=== PATIENT | male | born 1950 | race Caucasian/White ===

== ENCOUNTER → 2016-10-24 | Outpatient (CLI) | payer OTHER, MEDICARE ==
[~2016-10-24] MED LIST: ALBUAER INH; ARTIOIN OP; ATOR10TA88 PO; BCTROWC TOP; BENZ1CAP90 PO; CALC625T13 PO; CANA1TAB3 PO; CARB25TA12 PO; CETI10TA84 PO; CLOP1TAB5 PO; CYAN10005 PO; CYM/30 PO; DIPH25TA32 PO; DLCSR120 PO; DONE10TA12 PO; DULO60CA44 PO; FINA5TAB PO; FLUN0.02; HYDR25TA4 PO; INSDGI; IPRASOL4 INH; ISOS30TA35 PO; LATA0.009 OPB; LOSA1TAB38 PO; LOSA50TA6 PO; LVMI SC; LYR50 PO; MAGN400T6 PO; METF1000 PO; METO50TA16 PO; NTRGSL/4 UT; NTRSLP4 SL; OMEG10007 PO; OMEP20TA PO; OXGN; OXYC-57 PO; POTA10CA28 PO; PRLSR20 PO; ROPI0.5T15 PO; ROPI1TAB PO; SODI0.5T2 PO; SYMIN160 INH; TAMS0.4C38 PO; TAMS0.4C59 PO; TRIA0.1O12 TOP; ZOLP10TA6 PO; ZOLP5TAB6 PO
[2016-10-24 13:26] LABS: BASO % 0.2 %; BASO ABS # 0.01 K/uL (0-0.2); COMPLETE YES; EOS % 1.8 %; HEMATOCRIT 35.6 % (42-52); IG% 0.3 %; LYMPH % 19.6 %; LYMPH ABS # 1.29 K/uL (1.2-3.4); MEAN CELL VOLUME 86.6 fL (80-100); MEAN CORPUSCULAR HEMOGLOBIN 28.2 pg (25-34); MEAN CORPUSCULAR HGB CONC 32.6 g/dl (32-36); MONO % 7.2 %; NEUT % 70.9 %; PLATELET COUNT 123 K/uL (130-400); RED BLOOD COUNT 4.11 M/uL (4.7-6.1); WHITE BLOOD COUNT 6.57 K/uL (4.8-10.8)
[2016-10-24 13:29] LABS: URINE APPEARANCE CLEAR (CLEAR); URINE BILIRUBIN NEG (NEG); URINE COLOR YELLOW; URINE NITRITE NEG (NEG); URINE SPECIFIC GRAVITY 1.026 (1.000-1.030); UROBILINOGEN NEG (NEG)
[2016-10-24 13:33] LABS: MANUAL MICROSCOPIC REQUIRED? NO; REVIEW REQ? NO
[2016-10-24 13:43] LABS: TOTAL IRON BINDING CAPACITY 315 mcg/dl (250-450)
--- NOTE | 2016-11-02 09:10 | CODING QUERY MEDICAL NECESSITY ---
SUPPORTING DIAGNOSIS NEEDED A supporting diagnosis is required for the test/procedure performed on this patient in order for us to be reimbursed by the patient's insurance. Please provide a supporting diagnosis for the following test/procedure listed below next to the test name along with your signature. *If there is no additional diagnosis for this patient that would support the following test/procedure please document that below next to the test/procedure. Test(s)/Procedure(s) that require a supporting diagnosis: * VIT B-12 LEVEL DIAGNOSIS: * FOLATE LEVEL DIAGNOSIS: * DOS: 10/24/16 Provider Signature: Date: Thank you Babs Gill Health Information Management Once completed, please kindly fax back to [phone] For questions please call [phone]
== END | disposition home or self-care (01) ==
LOC: C.LABMFLN 07:42
PROVIDERS: ATTEND Family Medicine
DX: D64.9 Anemia, unspecified (principal); R31.9 Hematuria, unspecified

== ENCOUNTER → 2016-12-07 | Day surgery (SDC) | payer OTHER, MEDICARE ==
[2016-12-06 15:02] VITALS: Ht 180.3 cm; Wt 129.6 kg
[~2016-12-07] VITALS: Ht 180.3 cm; Wt 129.6 kg
[~2016-12-07] MED LIST changes: -ARTIOIN OP; -BCTROWC TOP; -CETI10TA84 PO; -CYM/30 PO; -INSDGI; -ISOS30TA35 PO; +LIDOCAINE HCL 2% 2 ML VIAL (20MG/ML) ONE; -LOSA50TA6 PO; -NTRSLP4 SL; -PRLSR20 PO; +PROPOFOL IV EMULSION 10 MG/ML 20 ML VIAL IV ONE; -ROPI0.5T15 PO; -SODI0.5T2 PO; +SODIUM CHLORIDE 0.9% 500ML 500 ML IV ONE; -SYMIN160 INH; -TAMS0.4C38 PO; -TRIA0.1O12 TOP; -ZOLP5TAB6 PO
[2016-12-07 12:23] VITALS: TEMP 36.5
--- NOTE | 2016-12-07 12:53 | Endo History and Physical ---
History & Physical Date of Service: Dec 07, 2016. Chief Complaint: GERD,Dysphagia Referring Physician: Dr. Abner Dunn History of Present Illness 66 yo CM who presents for EGD secondary to GERD and dysphagia. Past Medical History Diabetes, Neurological Disorder, Arthritis, Glaucoma, Blood Dyscrasias, High Cholesterol, Sleep Apnea, Heart Disease, Hypertension, COPD, Kidney Disease, CVA /TIA, Other Past Surgical History Hx Cardiac Surgery: Yes (HEART CATHS, STENT X1) Hx Internal Defibrillator: No Hx Pacemaker: No Hx Abdominal Surgery: Yes (PANNICULECTOMY) Hx of Implantable Prosthesis: No Hx Post-Op Nausea and Vomiting: No Hx Cancer Surgery: Yes (BCC REMOVED) Hx Thoracic Surgery: No Hx Orthopedic: No Hx Urinary Tract Surgery: No Family History Colon CA Social History Smoking Status: Former Smoker Hx Substance Use: Yes (PERCOCET) Hx Alcohol Use: No Allergies Coded Allergies: Ciprofloxacin (Verified Allergy, Severe, Anaphylaxis, 12/06/16) Metoclopramide (Verified Allergy, Intermediate, FROM DRS CHART, 12/07/16) Felodipine (Verified Adverse Reaction, Mild, Cough, 12/06/16) Lisinopril (Verified Adverse Reaction, Mild, Cough, 12/06/16) Simvastatin (Verified Adverse Reaction, Mild, Leg Cramping, 12/06/16) Uncoded Allergies: LACTULOSE POWDER (Allergy, Unknown, FROM OFFICE CHART, 02/17/15) Current Medications Reported Home Medications Medications Dose Route/Sig Max Daily Dose Days Date Category Dose Instructions Fiber Tabs (Calcium Polycarbophil) 625 Mg Tab 2 Tabs PO QAM 12/06/16 Reported Vitamin B-12 (Cyanocobalamin) 1,000 Mcg Tab 1,000 Mcg PO QAM 12/06/16 Reported Ropinirole Er (Ropinirole Hydrochloride) 6 Mg Tab 1 Tab PO LUNCH 12/06/16 Reported Percocet 5MG/325MG (Oxycodone/Acetaminophen) Tab 1-2 Tablet PO Q4H PRN 12/06/16 Reported PAIN Omeprazole 20 Mg Tab 40 Mg PO BID 12/06/16 Reported Nitrostat (Nitroglycerin) 0.4 Mg Tab 0.4 Mg UT UD PRN 12/06/16 Reported Mag-Ox (Magnesium Oxide) 400 Mg Tab 400 Mg PO TID 12/06/16 Reported Lyrica (Pregabalin) 50 Mg Cap 50 Mg PO TID 12/06/16 Reported Levemir (Insulin Detemir) 100 Units/Ml Inj 54 Units SC QPM 12/06/16 Reported Levemir (Insulin Detemir) 100 Units/Ml Inj 52 Units SC QAM 12/06/16 Reported Duoneb (Ipratropium-Albuterol) 3 Ml Nebu 1 Treatment INH Q4H PRN 12/06/16 Reported Invokana (Canagliflozin) 300 Mg Tab 1 Tab PO QAM 12/06/16 Reported Hctz (Hydrochlorothiazide) 25 Mg Tab 25 Mg PO QAM 12/06/16 Reported Diphenhydramine Hcl 25 Mg Tab 1 Tab PO QID PRN 12/06/16 Reported Cymbalta (Duloxetine Hcl) 60 Mg Cap 60 Mg PO BID 12/06/16 Reported Diltiazem HCl ER (Diltiazem HCl) 120 Mg Caper 1 Tab PO QAM 12/06/16 Reported Tessalon Perles (Benzonatate) 200 Mg Cap 200 Mg PO TID PRN 12/06/16 Reported Zolpidem Tartrate 10 Mg Tab 1 Tab PO HS PRN 12/06/16 Reported Cozaar (Losartan Potassium) 100 Mg Tab 100 Mg PO QAM 12/06/16 Reported Proscar (Finasteride) 5 Mg Tab 1 Tab PO HS 08/30/16 Reported Sinemet 25MG/100MG (Carbidopa/Levodopa) Tab 1.5 Tabs PO QID 08/30/16 Reported [place]-3 (Fish Oil) 1 Ea Cap 1 Cap PO LUNCH 08/30/16 Reported Proventil Hfa (Albuterol Sulfate) 108 Mcg/Act Aer 2 Puffs INH Q4H PRN 08/30/16 Reported Glucophage (Metformin Hcl) 1,000 Mg Tab 1,000 Mg PO BID 02/17/15 Reported Micro-K Ext Rel (Potassium Chloride) 10 Meq Capcr 10 Meq PO BID 08/13/14 Reported Plavix (Clopidogrel Bisulfate) 75 Mg Tab 75 Mg PO QAM 05/18/14 Reported Flunisolide (Flunisolide (Nasal)) 0.025 % Spr 2 Sprays NA QAM 12/24/13 Reported Lipitor (Atorvastatin Calcium) 10 Mg Tab 80 Mg PO HS 12/24/13 Reported Flomax (Tamsulosin Hcl) 0.4 Mg Cap 2 Tablets PO HS 12/24/13 Reported Oxygen Gas 3 Liters NA CONTINOUS 12/24/13 Reported Xalatan 0.005% Oph (Latanoprost) Soln 1 Drop OPB HS 12/24/13 Reported Lopressor (Metoprolol Tartrate) 50 Mg Tab 0.5 Tab PO BID 12/24/13 Reported Aricept (Donepezil Hydrochloride) 10 Mg Tab 10 Mg PO HS 12/24/13 Reported Vital Signs Weight (Kilograms): 129.55 Height (Feet): 5 Height (Inches): 11 Date Time Temp Pulse Resp B/P Pulse Ox O2 Delivery O2 Flow Rate FiO2 12/07/16 12:23 36.5 94 18 129/81 100 Nasal Cannula 3 Physical Exam General Appearance: WD/WN, no apparent distress Respiratory/Chest: Auscultation: breath sounds normal Cardiovascular: Heart Auscultation: RRR Abdomen: Bowel Sounds: normal Inspection & Palpation: soft, non-distended, no tenderness, guarding & rebound Assessment and Plan Assessment: 66 yo CM who presents for EGD secondary to GERD and dysphagia. Plan: Proceed with EGD.
--- NOTE | 2016-12-07 13:10 | GI REPORT ---
Procedure Date: 12/07/2016 12:24 PM Procedure: Upper GI endoscopy Indications: Dysphagia, Gastro-esophageal reflux disease Medicines: Monitored Anesthesia Care Complications: No immediate complications. Estimated Blood Loss: Estimated blood loss: none. Procedure: Pre-Anesthesia Assessment: - Prior to the procedure, a History and Physical was performed, and patient medications and allergies were reviewed. The patient's tolerance of previous anesthesia was also reviewed. The risks and benefits of the procedure and the sedation options and risks were discussed with the patient. All questions were answered, and informed consent was obtained. Prior Anticoagulants: The patient has taken Plavix (clopidogrel), last dose was 2 days prior to procedure. ASA Grade Assessment: IV - A patient with severe systemic disease that is a constant threat to life. After reviewing the risks and benefits, the patient was deemed in satisfactory condition to undergo the procedure. After obtaining informed consent, the endoscope was passed under direct vision. Throughout the procedure, the patient's blood pressure, pulse, and oxygen saturations were monitored continuously. The scope was introduced through the mouth, and advanced to the second part of duodenum. The upper GI endoscopy was accomplished without difficulty. The patient tolerated the procedure well. Findings: No endoscopic abnormality was evident in the esophagus to explain the patient's complaint of dysphagia. It was decided, however, to proceed with dilation at the gastroesophageal junction. A TTS dilator was passed through the scope. Dilation with an 18-19-20 mm balloon (to a maximum balloon size of 20 mm) dilator was performed. The dilation site was examined and showed no change. A small hiatus hernia was present. Localized moderate inflammation characterized by erythema was found in the gastric antrum. Biopsies were taken with a cold forceps for histology. The examined duodenum was normal. Impression: - No endoscopic esophageal abnormality to explain patient's dysphagia. Esophagus dilated. Dilated. - Small hiatus hernia. - Gastritis. Biopsied. - Normal examined duodenum. Recommendation: - Resume previous diet. - Continue present medications. - Await pathology results. - Return to GI office as previously scheduled. Elias Starks DO 12/07/2016 1:10:07 PM This report has been signed electronically. Note Initiated On: 12/07/2016 12:24 PM I attest to the content of the Intraoperative Record and orders documented therein, exceptions below
--- NOTE | 2016-12-07 13:18 | Discharge Instructions ---
Endoscopy Patient Instructions Date / Procedure(s) Performed Dec 07, 2016. EGD Allergy Information Coded Allergies: Ciprofloxacin (Verified Allergy, Severe, Anaphylaxis, 12/06/16) Metoclopramide (Verified Allergy, Intermediate, FROM DRS CHART, 12/07/16) Felodipine (Verified Adverse Reaction, Mild, Cough, 12/06/16) Lisinopril (Verified Adverse Reaction, Mild, Cough, 12/06/16) Simvastatin (Verified Adverse Reaction, Mild, Leg Cramping, 12/06/16) Uncoded Allergies: LACTULOSE POWDER (Allergy, Unknown, FROM OFFICE CHART, 02/17/15) Discharge Date / Findings Dec 07, 2016. Gastritis s/p biopsies Esophageal dilation Hiatal hernia Medication Instructions Stopped Medication(s): stopped Invokana,Metformin,Plavix on Sunday OK to resume all medications today as prescribed Reported Home Medications Medications Dose Route/Sig Max Daily Dose Days Date Category Dose Instructions Fiber Tabs (Calcium Polycarbophil) 625 Mg Tab 2 Tabs PO QAM 12/06/16 Reported Vitamin B-12 (Cyanocobalamin) 1,000 Mcg Tab 1,000 Mcg PO QAM 12/06/16 Reported Ropinirole Er (Ropinirole Hydrochloride) 6 Mg Tab 1 Tab PO LUNCH 12/06/16 Reported Percocet 5MG/325MG (Oxycodone/Acetaminophen) Tab 1-2 Tablet PO Q4H PRN 12/06/16 Reported PAIN Omeprazole 20 Mg Tab 40 Mg PO BID 12/06/16 Reported Nitrostat (Nitroglycerin) 0.4 Mg Tab 0.4 Mg UT UD PRN 12/06/16 Reported Mag-Ox (Magnesium Oxide) 400 Mg Tab 400 Mg PO TID 12/06/16 Reported Lyrica (Pregabalin) 50 Mg Cap 50 Mg PO TID 12/06/16 Reported Levemir (Insulin Detemir) 100 Units/Ml Inj 54 Units SC QPM 12/06/16 Reported Levemir (Insulin Detemir) 100 Units/Ml Inj 52 Units SC QAM 12/06/16 Reported Duoneb (Ipratropium-Albuterol) 3 Ml Nebu 1 Treatment INH Q4H PRN 12/06/16 Reported Invokana (Canagliflozin) 300 Mg Tab 1 Tab PO QAM 12/06/16 Reported Hctz (Hydrochlorothiazide) 25 Mg Tab 25 Mg PO QAM 12/06/16 Reported Diphenhydramine Hcl 25 Mg Tab 1 Tab PO QID PRN 12/06/16 Reported Cymbalta (Duloxetine Hcl) 60 Mg Cap 60 Mg PO BID 12/06/16 Reported Diltiazem HCl ER (Diltiazem HCl) 120 Mg Caper 1 Tab PO QAM 12/06/16 Reported Tessalon Perles (Benzonatate) 200 Mg Cap 200 Mg PO TID PRN 12/06/16 Reported Zolpidem Tartrate 10 Mg Tab 1 Tab PO HS PRN 12/06/16 Reported Cozaar (Losartan Potassium) 100 Mg Tab 100 Mg PO QAM 12/06/16 Reported Proscar (Finasteride) 5 Mg Tab 1 Tab PO HS 08/30/16 Reported Sinemet 25MG/100MG (Carbidopa/Levodopa) Tab 1.5 Tabs PO QID 08/30/16 Reported [place]-3 (Fish Oil) 1 Ea Cap 1 Cap PO LUNCH 08/30/16 Reported Proventil Hfa (Albuterol Sulfate) 108 Mcg/Act Aer 2 Puffs INH Q4H PRN 08/30/16 Reported Glucophage (Metformin Hcl) 1,000 Mg Tab 1,000 Mg PO BID 02/17/15 Reported Micro-K Ext Rel (Potassium Chloride) 10 Meq Capcr 10 Meq PO BID 08/13/14 Reported Plavix (Clopidogrel Bisulfate) 75 Mg Tab 75 Mg PO QAM 05/18/14 Reported Flunisolide (Flunisolide (Nasal)) 0.025 % Spr 2 Sprays NA QAM 12/24/13 Reported Lipitor (Atorvastatin Calcium) 10 Mg Tab 80 Mg PO HS 12/24/13 Reported Flomax (Tamsulosin Hcl) 0.4 Mg Cap 2 Tablets PO HS 12/24/13 Reported Oxygen Gas 3 Liters NA CONTINOUS 12/24/13 Reported Xalatan 0.005% Oph (Latanoprost) Soln 1 Drop OPB HS 12/24/13 Reported Lopressor (Metoprolol Tartrate) 50 Mg Tab 0.5 Tab PO BID 12/24/13 Reported Aricept (Donepezil Hydrochloride) 10 Mg Tab 10 Mg PO HS 12/24/13 Reported Provider Instructions Activity Restrictions - No exercising or heavy lifting for 24 hours. - Do not drink alcohol the day of the procedure. - Do not drive a car or operate machinery until the day after the procedure. - Do not make any important decisions or sign important papers in 24 hours after the procedure. Following Day: - Return to full activity which may include returning to work/school. Diet Start your diet with liquids and light foods (jello, soup, juice, toast). Then eat your usual diet if not nauseated. Treatment For Common After Affects For mild abdominal pain, bloating, or excessive gas: - Rest - Eat lightly - Lie on right side Follow-Up Information Follow-up with Dr. Abner Dunn as scheduled Anesthesia Information What You Should Know You have had a procedure that required some medicine to reduce anxiety and discomfort. This treatment is called moderate sedation. After receiving the treatment, you may be sleepy, but you will be able to breathe on your own. The effects of the treatment may last for several hours. Follow these instructions along with Activity/Diet recommendations noted above: * Do NOT do anything where dizziness or clumsiness would be dangerous. * Rest quietly at home today, then you can be up and about tomorrow. * Have a responsible person stay with you the rest of today. * You may have had an I.V. today. If so, you may take the dressing off later today. Recommendations Call your doctor if: * Trouble breathing * Continuous vomiting for more than 24 hours * Temperature above 101 degrees * Severe abdominal pain or bloating * Pain not relieved by pain medicine ordered * There is increased drainage or redness from any incision * A large amount of rectal bleeding greater than 2-3 tablespoons. (If you had a polyp/s removed or have hemorrhoids, a small amount of blood - from the rectum is to be expected.) * You have any unanswered questions or concerns. IN THE EVENT OF A SERIOUS EMERGENCY, GO TO THE NEAREST EMERGENCY ROOM Your discharge instructions were prepared by provider Elias Starks. Patient Instructions Signature Page Richie Larose Patient (or Guardian) Signature/Date: I have read and understand the instructions given to me by my caregivers. Caregiver/RN/Doctor Signature/Date: The above-named patient and/or guardian has received patient instructions on this date. + Original Patient Signature Page (only) stays with chart. Please make copy for patient.
--- NOTE | 2016-12-07 13:40 | Anesthesiology Progress Note ---
Anesthesia Post Op Note Date & Time Dec 07, 2016 at 13:40 Vital Signs Pain Intensity: 2 Vital Signs Past 12 Hours Date Time Temp Pulse Resp B/P Pulse Ox O2 Delivery O2 Flow Rate FiO2 12/07/16 13:37 73 18 113/60 95 Nasal Cannula 3 12/07/16 13:31 81 18 109/55 96 Nasal Cannula 3 12/07/16 13:27 98 18 110/59 98 Nasal Cannula 3 12/07/16 12:23 36.5 94 18 129/81 100 Nasal Cannula 3 Notes Mental Status: alert / awake / arousable, participated in evaluation Pt Amnestic to Procedure: Yes Nausea / Vomiting: adequately controlled Pain: adequately controlled Airway Patency, RR, SpO2: stable & adequate BP & HR: stable & adequate Hydration State: stable & adequate Anesthetic Complications: no major complications apparent
[2016-12-07 13:42] VITALS: BP 140/80; PULSE 75; O2SAT 95
== END | disposition home or self-care (01) ==
LOC: C.GI 11:53
PROVIDERS: ATTEND Internal Medicine
DX: R13.10 Dysphagia, unspecified (principal); K21.9 Gastro-esophageal reflux disease without esophagitis; K44.9 Diaphragmatic hernia without obstruction or gangrene; E11.9 Type 2 diabetes mellitus without complications; M19.90 Unspecified osteoarthritis, unspecified site; H40.9 Unspecified glaucoma; D75.9 Disease of blood and blood-forming organs, unspecified; E78.5 Hyperlipidemia, unspecified; J44.9 Chronic obstructive pulmonary disease, unspecified; I51.9 Heart disease, unspecified; G47.30 Sleep apnea, unspecified; Z86.73 Personal history of transient ischemic attack (TIA), and cerebral infarction without residual deficits; Z88.1 Allergy status to other antibiotic agents; Z88.8 Allergy status to other drugs, medicaments and biological substances; Z79.02 Long term (current) use of antithrombotics/antiplatelets

== ENCOUNTER → 2016-12-25 | Outpatient (CLI) | payer OTHER, MEDICARE ==
[~2016-12-25] MED LIST changes: -LIDOCAINE HCL 2% 2 ML VIAL (20MG/ML) ONE; -PROPOFOL IV EMULSION 10 MG/ML 20 ML VIAL IV ONE; -SODIUM CHLORIDE 0.9% 500ML 500 ML IV ONE
[2016-12-25 13:48] LABS: HEMATOCRIT 36.3 % (42-52)
[2016-12-25 13:57] LABS: ALT/SGPT 17 U/L (12-78); AST/SGOT 32 U/L (15-37); BLOOD UREA NITROGEN 26 mg/dl (7-18); BUN/CREATININE RATIO 23.3 (10-20); CALCIUM 9.2 mg/dl (8.5-10.1); CARBON DIOXIDE 33 mmol/L (21-32); CHLORIDE 102 mmol/L (98-107); GLUCOSE 124 mg/dl (70-99); POTASSIUM 3.9 mmol/L (3.5-5.1); SODIUM 141 mmol/L (136-145)
[2016-12-25 14:01] LABS: ALB/GLOB RATIO 0.9 (0.9-2); ALKALINE PHOSPHATASE 80 U/L (45-117); CHOLESTEROL 99 mg/dl (0-200); CHOLESTEROL/HDL RATIO 2.7; ESTIMATED AVERAGE GLUCOSE 160 mg/dl; HA1C FLAG Normal (Normal); HDL CHOLESTEROL 37 mg/dl; LDL CHOLESTEROL CALCULATED 18 mg/dl; MAGNESIUM 2.2 mg/dl (1.8-2.4); TRIGLYCERIDES 218 mg/dl (0-150); VERY LOW DENSITY LIPOPROT CALC 44 mg/dl
== END | disposition home or self-care (01) ==
LOC: C.LABMFLN 08:16
PROVIDERS: ATTEND Family Medicine
DX: I10 Essential (primary) hypertension (principal); E78.5 Hyperlipidemia, unspecified; E83.42 Hypomagnesemia; E11.42 Type 2 diabetes mellitus with diabetic polyneuropathy

== ENCOUNTER → 2017-02-15 | Outpatient (CLI) | payer OTHER, MEDICARE ==
[~2017-02-15] MED LIST changes: +ATOR10TA82 PO; -ATOR10TA88 PO
[2017-02-15 18:13] LABS: BASO % 0.1 %; BASO ABS # 0.01 K/uL (0-0.2); COMPLETE YES; EOS % 3.2 %; HEMATOCRIT 37.2 % (42-52); IG% 0.2 %; LYMPH % 19.1 %; LYMPH ABS # 1.55 K/uL (1.2-3.4); MEAN CELL VOLUME 86.7 fL (80-100); MEAN CORPUSCULAR HEMOGLOBIN 27.5 pg (25-34); MEAN CORPUSCULAR HGB CONC 31.7 g/dl (32-36); NEUT % 70.4 %; PLATELET COUNT 148 K/uL (130-400); RED BLOOD COUNT 4.29 M/uL (4.7-6.1)
[2017-02-15 18:16] LABS: ALT/SGPT 18 U/L (12-78); BLOOD UREA NITROGEN 20 mg/dl (7-18); BUN/CREATININE RATIO 15.2 (10-20); CARBON DIOXIDE 35 mmol/L (21-32); CHLORIDE 101 mmol/L (98-107); GLUCOSE 200 mg/dl (70-99); MAGNESIUM 2.1 mg/dl (1.8-2.4); POTASSIUM 4.8 mmol/L (3.5-5.1); SODIUM 139 mmol/L (136-145)
[2017-02-15 18:17] LABS: CALCIUM 10.3 mg/dl (8.5-10.1)
[2017-02-15 18:19] LABS: ALKALINE PHOSPHATASE 97 U/L (45-117); AST/SGOT 28 U/L (15-37)
== END | disposition home or self-care (01) ==
LOC: C.LABMFLN 08:12
PROVIDERS: ATTEND Family Medicine
DX: G40.409 Other generalized epilepsy and epileptic syndromes, not intractable, without status epilepticus (principal)

== ENCOUNTER → 2017-04-27 | Outpatient (CLI) | payer OTHER, MEDICARE ==
[~2017-04-27] MED LIST changes: -ATOR10TA82 PO; +ATOR10TA88 PO
[2017-04-27 13:30] LABS: BASO % 0.4 %; BASO ABS # 0.03 K/uL (0-0.2); COMPLETE YES; EOS % 2.2 %; HEMATOCRIT 37.3 % (42-52); IG% 0.7 %; LYMPH % 17.8 %; LYMPH ABS # 1.35 K/uL (1.2-3.4); MEAN CELL VOLUME 82.9 fL (80-100); MEAN CORPUSCULAR HEMOGLOBIN 26.7 pg (25-34); MEAN CORPUSCULAR HGB CONC 32.2 g/dl (32-36); MONO % 5.9 %; PLATELET COUNT 148 K/uL (130-400); WHITE BLOOD COUNT 7.59 K/uL (4.8-10.8)
[2017-04-27 13:41] LABS: BLOOD UREA NITROGEN 24 mg/dl (7-18); BUN/CREATININE RATIO 22.1 (10-20); CALCIUM 9.7 mg/dl (8.5-10.1); CARBON DIOXIDE 30 mmol/L (21-32); CHLORIDE 102 mmol/L (98-107); GLUCOSE 187 mg/dl (70-99); SODIUM 137 mmol/L (136-145)
[2017-04-27 14:17] LABS: URINE APPEARANCE CLEAR (CLEAR); URINE BILIRUBIN NEG (NEG); URINE COLOR YELLOW; URINE NITRITE NEG (NEG); URINE PH 6.5 (4.5-7.5); URINE SPECIFIC GRAVITY 1.032 (1.000-1.030); UROBILINOGEN NEG (NEG)
[2017-04-27 14:18] LABS: MANUAL MICROSCOPIC REQUIRED? NO; REVIEW REQ? NO
== END | disposition home or self-care (01) ==
LOC: C.LABMFLN 08:47
PROVIDERS: ATTEND Family Medicine
DX: R31.0 Gross hematuria (principal); R01.1 Cardiac murmur, unspecified; E83.52 Hypercalcemia

== ENCOUNTER → 2017-05-04 | Outpatient (CLI) | payer OTHER, MEDICARE | END | disposition home or self-care (01) | LOC: C.PATHSPEC 08:26 | PROVIDERS: ATTEND Family Medicine | DX: L91.8 Other hypertrophic disorders of the skin (principal) ==

== ENCOUNTER → 2017-10-26 | Outpatient (CLI) | payer OTHER, MEDICARE ==
[~2017-10-26] MED LIST changes: +ATOR10TA82 PO; -ATOR10TA88 PO; -DIPH25TA32 PO; +DIPH25TA33 PO
== END | disposition home or self-care (01) ==
LOC: C.LABMFLN 13:16
PROVIDERS: ATTEND Family Medicine
DX: J02.9 Acute pharyngitis, unspecified (principal)

== ENCOUNTER → 2017-11-29 | Outpatient (CLI) | payer OTHER, MEDICARE | END | disposition home or self-care (01) | LOC: C.LABMFLN 13:54 | PROVIDERS: ATTEND Family Medicine | DX: I10 Essential (primary) hypertension (principal); E78.5 Hyperlipidemia, unspecified; E11.49 Type 2 diabetes mellitus with other diabetic neurological complication; G50.0 Trigeminal neuralgia; E53.8 Deficiency of other specified B group vitamins; E83.42 Hypomagnesemia; K12.0 Recurrent oral aphthae ==

== ENCOUNTER → 2017-12-14 | Outpatient (CLI) | payer OTHER, MEDICARE ==
--- NOTE | 2017-12-14 14:36 | DIAGNOSTIC IMAGING REPORT ---
CT OF THE HEAD WITHOUT CONTRAST CLINICAL HISTORY: Headaches. Double vision. COMPARISON STUDY: MRI of the brain December 22, 2014. CT DOSE: 614.27 mGy.cm TECHNIQUE: Helical axial images of the head were obtained without IV contrast. Automated exposure control was utilized for the study. A dose lowering technique was utilized adhering to the principles of ALARA. FINDINGS: No acute intracranial hemorrhage, midline shift or mass effect is present. Ventricular system is normal. Basilar cisterns are patent. There are no extra-axial collections. There is mild atrophy. Mild white matter hypodensity suggests small vessel disease. There are no findings to suggest acute dural sinus thrombosis or acute territorial infarct. There is mild mucosal thickening of the maxillary sinuses. Mastoid air cells are clear. There are no significant calvarial abnormalities. IMPRESSION: No acute intracranial findings. Electronically signed by: Osmin Norman M.D. 12/14/2017 2:34 PM Dictated Date/Time: 12/14/2017 2:33 PM
== END | disposition home or self-care (01) ==
LOC: C.CTS 14:09
PROVIDERS: ATTEND Psychiatry & Neurology Neurology
DX: H53.2 Diplopia (principal); R51 Headache

== ENCOUNTER 2019-06-28 03:00 | Observation (INO) ==
[2019-06-28] MEDS ORDERED: NITROGLYCERIN 2% OINTMENT 30GM TUBE EXT STA (03:26)
[2019-06-28] MEDS ORDERED: ONDANSETRON INJ 2 MG/ML 2 ML VIAL IV STA (04:02)
[2019-06-28 04:12] LABS: Alanine Aminotransferase 21 U/L (12-78); Aspartate Aminotransferase 29 U/L (15-37); BUN Creatinine Ratio 13.4 (10-20); Blood Urea Nitrogen 13 mg/dl (7-18); Calcium 9.1 mg/dl (8.5-10.1); Carbon Dioxide 33 mmol/L (21-32); Chloride 103 mmol/L (98-107); Creatinine Clr Calc Pharmacy 100.5 ml/min; Est GFR (African American) 91.4; Est GFR (Non-African American) 78.9; Glucose 187 mg/dl (70-99); Magnesium 1.9 mg/dl (1.8-2.4); Potassium 4.1 mmol/L (3.5-5.1); Sodium 140 mmol/L (136-145)
[2019-06-28 04:18] LABS: D Dimer 690 ug/L FEU (0-500)
[2019-06-28 04:23] LABS: Albumin Globulin Ratio 0.8 (0.9-2); Alkaline Phosphatase 123 U/L (45-117); Basophils # (auto) 0.01 K/uL (0-0.2); Basophils % (auto) 0.2 %; Bilirubin,Total 0.3 mg/dl (0.2-1); Eosinophils # (auto) 0.15 K/uL (0-0.5); Eosinophils % (auto) 2.8 %; Hematocrit (blood only) 32.6 % (42-52); Hemoglobin 10.6 g/dL (14.0-18.0); Immature Granulocytes # (auto) 0.01 K/uL (0.00-0.02); Immature Granulocytes % (auto) 0.2 %; Lymphocytes # (auto) 0.68 K/uL (1.2-3.4); Lymphocytes % (auto) 12.5 %; Mean Corpuscular Hgb Conc 32.5 g/dL (32-36); Mean Corpuscular Volume 90.3 fL (80-100); Mean Platelet Volume 9.3 fL (7.4-10.4); Monocytes # (auto) 0.28 K/uL (0.11-0.59); Monocytes % (auto) 5.2 %; NT Pro B Type Natriuretic Pept 48 pg/ml (0-900); Neutrophils # (auto) 4.29 K/uL (1.4-6.5); Neutrophils % (auto) 79.1 %; Platelet Count 75 K/uL (130-400); Platelet Estimate Decreased (Normal); RDW Coefficient of Variation 14.1 % (11.5-14.5); RDW Standard Deviation 47.1 fL (36.4-46.3); Red Blood Count 3.61 M/uL (4.7-6.1); Troponin I < 0.015 ng/ml (0-0.045); White Blood Count 5.42 K/uL (4.8-10.8)
[2019-06-28] MEDS: fentaNYL citrate 100 MCG/2 ML VIAL IV PRN ×2 (04:42→06:21)
[2019-06-28] MEDS ORDERED: OPTIRAY 320 125ml IV PRN (05:27)
--- NOTE | 2019-06-28 07:33 | XRay Report ---
XR chest 1V portable CLINICAL HISTORY: 69 years-old Male presenting with chest pain, chest pressure and pain/achiness radi ating into the back and into the left shoulder, shortness of breath and diaphoresis. TECHNIQUE: Portable upright AP view of the chest was obtained. COMPARISON: 09/05/2018. FINDINGS: Right internal jugular Mediport terminates in the mid SVC. Cardiac silhouette moderately enlarged. Mi ld pulmonary vascular prominence. At the density in the perihilar lungs. No other focal opacity. No l arge effusion or pneumothorax. Degenerative changes of the thoracic spine. Upper abdomen normal. IMPRESSION: 1. Cardiomegaly with mild volume overload. No leonardo pulmonary edema. Electronically signed by: Francis Wilson M.D. 06/28/2019 7:32 AM
--- NOTE | 2019-06-28 08:20 | CT Scan Report ---
CT angio chest PE protocol CLINICAL HISTORY: 69 years-old Male presenting with shortness of breath, atypical chest pain, clinica l concern for pulmonary embolus. TECHNIQUE: Multidetector CT angiography of the chest was performed after administration of intravenou s contrast. 3-D volumetric and/or maximum intensity projection (MIP) images were subsequently reconst ructed for review. IV contrast: 119 mL of Optiray 320. One or more dose lowering techniques were used consistent with the principles of ALARA (as low as reasonably achievable), including automatic expos ure control, mA or kV adjustment to individual patient size, and/or use of iterative reconstruction. COMPARISON: Chest x-ray from earlier today. CT DOSE (mGy.cm): The estimated cumulative dose is 894.36 mGy.cm. FINDINGS: Director Television topogram: Enlarged splenic shadow. Pulmonary vasculature: The study is suboptimal for the assessment of the pulmonary vascular tree secondary to respiratory mo tion artifact. No filling defect within the pulmonary arteries to suggest embolus. Main pulmonary art serenity is not enlarged. No flattening of the interventricular septum. No intracardiac filling defect. No reflux of contrast into the hepatic veins. Remaining chest: Soft tissues: Normal thyroid and thoracic inlet. Gynecomastia. Prominent bilateral hilar lymph nodes. Few scattered subcentimeter mediastinal lymph nodes. No supraclavicular or axillary lymphadenopathy. Normal aorta. Normal heart size. Coronary artery calcification. No pericardial or pleural effusion. The spleen appears enlarged. Mild distention of the esophagus with mild circumferential wall thickeni ng throughout. Lungs and airways: No pneumothorax. Central airways patent. Mild diffuse bronchial wall thickening. P ulmonary arteries are not significantly enlarged relative to adjacent bronchi. No interlobular septal thickening. Limited paraseptal emphysema. Benign morphology solid 5 mm fissural nodule in the right middle lobe (series 4 image 147). Minimal dependent changes likely atelectasis. Musculoskeletal: Degenerative changes of the spine. IMPRESSION: 1. No evidence of pulmonary embolus. 2. Mild diffuse bronchial wall thickening. Correlate clinically for bronchitis, smoking-related lung injury, or chronic aspiration. No focal infiltrate to suggest pneumonia. 3. Small bilateral hilar lymph nodes, likely reactive. 4. Mild diffuse esophageal dilatation and wall thickening, which could suggest esophagitis. 5. Benign morphology solid 5 mm fissural nodule in the right middle lobe. Follow-up per Fleischner S ociety 2017 recommendations below. Summary of Fleischner Society 2017 Recommendations (H Rere, et al. Guidelines for management of i ncidental pulmonary nodules detected on CT images: From the Fleischner Society 2017. Radiology 2017; 284: 228-243.) SOLID NODULES Single nodule; size < 6 mm * Low risk patients: No routine follow-up * High risk patients: Optional CT at 12 months Single nodule; size 6-8 mm * Low risk patients: CT at 6-12 months, then consider CT at 18-24 months * High risk patients: CT at 6-12 months, then at 18-24 months Single nodule; size > 8 mm * Either low or high risk patients: Considered CT at 3 months, PET/CT, or tissue sampling Multiple nodules; size < 6 mm * Low risk patients: No routine follow up * High risk patients: Optional CT at 12 months Multiple nodules; size 6-8 mm * Low risk patients: CT at 3-6 months, then consider CT at 18-24 months * High risk patients: CT at 3-6 months, then at 18-24 months Multiple nodules; size > 8 mm * Low risk patients: CT at 3-6 months, then consider at 18-24 months * High risk patients: CT at 3-6 months, then at 18-24 months SUBSOLID NODULES Single ground-glass nodule * Nodule size < 6 mm: No routine follow-up * Nodule size > or = 6 mm: CT at 6-12 months to confirm persistence, then CT every 2 years until 5 y ears Single part-solid nodule * Nodule size < 6 mm: No routine follow-up * Nodules size > or = 6 mm: CT at 3-6 months to confirm persistence. If unchanged and solid componen t remains < 6 mm, annual CT should be performed for 5 years Multiple nodules * Nodule size < 6 mm: CT at 3-6 months. If stable, consider CT at 2 and 4 years. * Nodules size > or = 6 mm: CT at 3-6 months. Subsequent management based on the most suspicious nod ule(s) NOTE: 1) These guidelines apply to incidental nodules. These guidelines do NOT apply to patients younger th an 35 years, immunocompromised patients, or patients with cancer. 2) Risk categories: * Low risk patients: Minimal or absent history of smoking and/or other known risk factors * High risk patients: History of smoking, exposure to other carcinogens, emphysema, fibrosis, upper lobe location, family history of lung cancer, etc. 3) If a nodule up to 8 mm is partly solid or is ground glass, further follow-up is required after 24 months to exclude possible slow growing adenocarcinoma. Electronically signed by: Francis Wilson M.D. 06/28/2019 8:19 AM
--- NOTE | 2019-06-28 09:21 | History & Physical Report ---
Date of Service June 28, 2019 Assessment & Plan (1) Chest pain: R/O ACS - Patient with significant cardiac history- s/p PCI with TREE to LAD. - Cardiac catheterization report May 2019 in [place] with non-obstructive CAD- 20% proximal LAD, 40% mid LCx. Follows locally with Dr. English - Obs Tele - Initial troponin negative- Troponin Q8 x3 - EKG in AM - CBC, BMP in AM - ECHO - Continue home medications- Plavix, Metoprolol, Isosorbide, Rosuvastatin, Losartan - CT Chest- negative for PE, however does show some evidence of esophagitis. - GI cocktail- may consider PPI pending response - Cardiology consult (2) COPD (chronic obstructive pulmonary disease): Stable - Continue home meds- Duonebs, Albuterol prn - Of note: benign 5mm fissural nodule of RML with recommendations per Fleischner Society for optional CT at 12 months for follow-up (3) Hypertension: Continue home meds- metoprolol, losartan (4) Parkinson disease: Stable - Patient with history of Parkinson's disease with Lewy Body- sees Dr. Bruner as outpatient - Continue home medications- sinemet, requip (5) BPH (benign prostatic hyperplasia): Stable -Continue home meds- tamsulosin, finasteride (6) Diabetes mellitus: Stable - DM II with neuropathy b/l LE - BSG AC/HS - Recent A1c 6.6 on 05/26 - SSI - Glycemic Consult (7) DVT prophylaxis: - SCDs Patient dispo: discharge home tomorrow pending negative cardiac work-up History of Present Illness Primary Care Provider: Abner Dunn MD Patient is a 69 year old white male presents with complaints of chest pain with PMH significant for CAD (s/p PCI to LAD April 2017 [facility]), hypercholesterolemia, DM II, COPD, parkinsons, hx CVA, The patient recently had a cardiac catheterization May 2019 in [place], which he states showed blockages of 20-40% and did not require intervention at that time. The patient has had complaints of chest pain at baseline, which he takes nitro and isosorbide for, but states this morning around 1:30am he developed severe right sided chest pain and right after breaking out into a sweat. The patient states he took 3 nitro, five minutes apart at home before EMS arrived. He states his chest pain remained 7/10 despite nitro x 3, and was only decreased to his current level of 5/10 with an additional two doses administered by EMS. He describes the pain as a dull sensation within his chest, similar to his symptoms prior to [place] in 2006, which is located substernally with radiation to his right shoulder and neck. The patient has felt nauseous since this morning and had one bout of emesis prior to EMS arrival, without hematemesis. Of note, the patient was recently titrated up from 1/4 tablet of 60mg isosorbide to a full tablet over the past several weeks, which have helped his symptoms up until this morning. Allergies Allergy/AdvReac Type Severity Reaction Status Date / Time Cipro Allergy Severe Anaphylaxis Verified 12/07/16 14:38 ciprofloxacin Allergy Severe Anaphylaxis Verified 06/28/19 04:11 metoclopramide Allergy Intermediate FROM DRS Verified 06/28/19 04:11 CHART budesonide [From Symbicort] Allergy Unknown FROM Verified 06/28/19 04:11 OFFICE CHART formoterol [From Symbicort] Allergy Unknown FROM Verified 06/28/19 04:11 OFFICE CHART lactulose Allergy Unknown Unknown Verified 06/28/19 11:23 felodipine AdvReac Mild Cough Verified 06/28/19 04:11 lisinopril AdvReac Mild Cough Verified 06/28/19 04:11 simvastatin AdvReac Mild Leg Verified 06/28/19 04:11 Cramping Home Medications Home Medications Medication Instructions Recorded Confirmed Type Restasis 1 drp OPB Q12H 09/05/18 06/28/19 History latanoprost 1 drp OPB HS 09/05/18 06/28/19 History ondansetron HCl 4 mg PO DIRECTED PRN 09/05/18 06/28/19 History furosemide 40 mg tablet 40 mg PO QAM #30 tab 04/16/19 06/28/19 Rx magnesium 400 mg (as magnesium 400 mg PO BID #60 cap 04/16/19 06/28/19 Rx oxide) capsule tamsulosin 0.4 mg capsule 0.4 mg PO DAILY #90 cap 04/16/19 06/28/19 Rx ezetimibe 10 mg tablet 10 mg PO DAILY #90 tab 04/23/19 06/28/19 Rx rosuvastatin 10 mg tablet 10 mg PO DAILY #90 tab 04/23/19 06/28/19 Rx albuterol sulfate HFA 90 2 puff INHALATION Q4H PRN #1 ea 05/05/19 06/28/19 Rx mcg/actuation aerosol inhaler carbidopa 25 mg-levodopa 100 mg 1 tab PO QID #120 tab 05/05/19 06/28/19 Rx tablet clopidogrel 75 mg tablet 75 mg PO DAILY #30 tab 05/05/19 06/28/19 Rx finasteride 5 mg tablet 5 mg PO HS #30 tab 05/05/19 06/28/19 Rx insulin aspart U- 100 100 unit/mL See Rx Instructions SUBCUT 05/05/19 06/28/19 Rx subcutaneous solution DIRECTED #10 ml ipratropium-albuterol 0.5 mg-3 3 ml INHALATION QID PRN #90 ml 05/05/19 06/28/19 Rx mg(2.5 mg base)/3 mL nebulization soln liraglutide 0.6 mg/0.1 mL (18 mg/3 1.8 mg SUBCUT DAILY #9 ml 05/05/19 06/28/19 Rx mL) subcutaneous pen injector losartan 50 mg tablet 50 mg PO DAILY #30 tab 05/05/19 06/28/19 Rx metformin 1,000 mg tablet 1,000 mg PO BID #60 tab 05/05/19 06/28/19 Rx metoprolol tartrate 50 mg tablet 50 mg PO BID #60 tab 05/05/19 06/28/19 Rx nitroglycerin 0.4 mg sublingual 0.4 mg SL Q5M PRN #25 tab 05/05/19 06/28/19 Rx tablet ropinirole ER 6 mg tablet,extended 6 mg PO DAILY #30 tab 05/05/19 06/28/19 Rx release 24 hr verapamil ER (SR) 240 mg 240 mg PO HS #30 tab 05/05/19 06/28/19 Rx tablet,extended release isosorbide mononitrate ER 60 mg 60 mg PO DAILY #90 tab 05/26/19 06/28/19 Rx tablet,extended release 24 hr Ensure Clear 1 ea PO DAILY 06/28/19 06/28/19 History Glucerna 1 ea PO BID 06/28/19 06/28/19 History Toujeo SoloStar U-300 Insulin 80 units SUBCUT BID 06/28/19 06/28/19 History calcium polycarbophil 1,250 mg PO DAILY 06/28/19 06/28/19 History olopatadine [Patanol] 1 drp OPHTHALMIC (EYE) Q8H PRN 06/28/19 06/28/19 History tizanidine 4 mg PO BID PRN 06/28/19 06/28/19 History pantoprazole 40 mg PO DAILY #30 tab NS 06/29/19 Rx sucralfate [Carafate] 1 gm PO BID #14 tab NS 06/29/19 Rx Past Med/Surg History Medical History COPD (chronic obstructive pulmonary disease) CVA (cerebral vascular accident) Neuropathy associated with endocrine disorder BPH (benign prostatic hyperplasia) Diabetes HTN (hypertension) Surgical History H/O heart artery stent S/P cardiac cath 04/14/19 left and coronary angiography Family History Mother Coronary heart disease Grandfather (Paternal) Myocardial infarction Grandmother (Paternal) Myocardial infarction Father Colorectal cancer Pancreatic cancer Liver cancer Social History Preferred Language: Belarusian Communication Ability: Effective Visual Impairment: Limited Hearing Ability: Use of Hearing Aid Rn Wound Care Required: No Beliefs That Will Affect Care: None marital status: Current Living Situation: Spouse Current Living Situation Comment: Lives at home with - wheelchair accessible current occupational status: retired Other Information That Helps Us Care for You: No Feels Safe at Home: Yes Safety Concerns: Feels Safe At This Time Smoking Status: Never smoker Tobacco Type: cigarettes ; Age Started Using Tobacco: 19 ; Age Quit Using Tobacco: 23 ; Do You Dip or Chew Tobacco: No ; Second Hand Exposure: Yes ; Tobacco Cessation Education Requested by Patient: No Hx Alcohol Use: Yes (did in the past) Hx Substance Use: No Childhood Exposure to Second-Hand Smoke: No Other Diet Comment: Glucerna (2), chicken noodle soup caffeine: Yes Dental Care, Regularly: Yes Physical Activity Frequency: Does not Exercise Seatbelt Use: always Sunscreen Use: No Do you think of yourself as: straight/heterosexual Review of Systems Constitutional: + sweats (per patient, broke out into sweats prior to CP this AM); no fever and no chills Eyes: no blind spots and no diplopia occasional "flicker" Ear, Nose, Mouth, Throat: no ear pain, no tinnitus and no dizziness Respiratory: + cough (chronic) and + dyspnea (baseline); no change in sputum and no hemoptysis Cardiovascular: + chest pain, + chest pain at rest and + radiating jaw, neck or arm pain Gastrointestinal: + nausea, + vomiting and + constipation; no abdominal pain Genitourinary: no dysuria, no urinary hesitancy and no flank pain Musculoskeletal: chronic pain- unchanged Integumentary: no rash and no lesions Neurologic: bilateral lower extremity neuropathy right arm numbness/tingling- chronic per patient Endocrine: + fatigue; no polyphagia and no polyuria Physical Exam Constitutional: well nourished, + obese and cooperative uncomfortable appearing Eyes: + anicteric sclerae and PERRL Neurologic: tremor right hand Results & Data Vital Signs (Past 12 Hours) Vital Signs Temp Pulse Pulse Resp BP BP Pulse Ox 06/28/19 07:30 76 18 128/57 L 96 06/28/19 07:00 86 18 151/85 H 97 06/28/19 06:41 81 19 144/76 H 97 06/28/19 06:30 76 19 144/76 H 94 06/28/19 06:00 78 16 136/69 96 06/28/19 05:30 77 21 145/82 H 97 06/28/19 05:29 77 79 23 150/82 H 150/82 H 97 06/28/19 05:00 82 16 138/83 97 06/28/19 04:30 81 17 136/82 96 06/28/19 04:00 86 22 137/74 98 06/28/19 03:49 97 06/28/19 03:30 83 16 120/65 98 06/28/19 03:15 36.7 C 88 20 113/59 L 95 06/28/19 03:08 90 26 H 113/59 L 95 Code Status & VTE Plan VTE Prophylaxis Plan VTE Prophylaxis will be ordered: Yes Supervising Physician Co-Signing Physician Notes Attending Attestation & Admission Note: Pt seen/examined, chart reviewed, admission care plan d/w PA Chelsey Mckenzie. I agree w/ the whelan components of her admission documentation. 69yo male with morbid obesity BMI 41, COPD, PD, nonobstructive CAD as confirmed by cath at [facility] April 2019, T2DM - presenting with acute onset of chest pain waking him from sleep early this am. Had copious amounts of nitro with incomplete response. Pain lasted all morning and well into his ER course. GI cocktail not helpful. I saw him with Ms Mckenzie on the 2nd floor tele unit and following PPI/carafate his pain was finally resolved. Tele stable since admission. PMH, PSH, allergies, meds, sochx, famhx, ros - reviewed VSS, afebrile gen - NAD, obese neck - no JVD mouth - MMM heart - RRR, s1 s2, no murmur chest - no reproducible chest wall pain lungs - CTA b/l, mildly decreased BS bases abd - soft NT ND BS+ ext - no edema EKG - no ST changes; unchanged EKG from prior CTA chest - no PE; esophagitis findings; ?bronchial wall thickening trops negative thus far A/P: 1. chest pain - suspect noncardiac; cath 04/2019 at [facility] with largest stenosis of 40% only. Trops neg, EKG w/o ischemic changes, echo w/o wall motion abnormalities, cardiology to see. Check 1 more troponin to be complete. Either GERD/esophageal vs pulmonary -- favor former. PPI + carafate -- follow response. 2. COPD - no exacerbation; cont home inhalers. 3. HTN - adjust meds. other plans per Ms Mckenzie. John Butcher MD PG Care Time/CCT Total # of Minutes Spent Total Time Spent with Patient: Total time spent is greater than 50% in coordination of care (as documented) at patient's floor/unit and/or counseling patient: 60 (1) Chest pain Chest pain type: unspecified Qualified Code(s): R07.9 - Chest pain, unspecified
[2019-06-28] MEDS ORDERED: GI COCKTAIL ED USE PO STA (09:37)
[2019-06-28] MEDS ORDERED: GLUCOSE 40% GEL 15 GM TUBE PO PRN ×2 (11:00→12:45)
[2019-06-28] MEDS ORDERED: DEXTROSE 50% 50 ML SYRINGE IV PRN ×2 (11:00→12:45)
[2019-06-28] MEDS ORDERED: MoRPHine SULFATE 2 MG/ML CARP IV PRN (11:00)
[2019-06-28] MEDS ORDERED: ALBUTEROL HFA 8 GM INHALER INH PRN (11:00)
[2019-06-28] MEDS ORDERED: CARBOHYDRATES FOR HYPOGLYCEMIA PO PRN ×2 (11:00→12:45)
[2019-06-28] MEDS ORDERED: MAGNESIUM HYDROXIDE SUSP 30 ML UDC PO PRN (11:00)
[2019-06-28] MEDS ORDERED: TIZANIDINE HCL 4 MG TABLET PO PRN (11:00)
[2019-06-28] MEDS ORDERED: GLUCOSE 10 TABS/TUBE PO PRN ×2 (11:00→12:45)
[2019-06-28] MEDS ORDERED: ONDANSETRON INJ 2 MG/ML 2 ML VIAL IV PRN (11:00)
[2019-06-28] MEDS ORDERED: NITROGLYCERIN SL 0.4 MG/TAB TAB SL PRN ×2 (11:00)
[2019-06-28] MEDS ORDERED: NON-FORMULARY MEDICATION (Cyclosporine [Restasis] 1 DROPS) OPB SCH (11:00)
[2019-06-28] MEDS ORDERED: GLUCAGON FOR INJ 1 MG VIAL SQ PRN ×2 (11:00→12:45)
[2019-06-28] MEDS ORDERED: ALBUT/IPRATROP 3MG/0.5MG NEB 3 ML VIAL INH PRN (11:00)
[2019-06-28] MEDS ORDERED: ACETAMINOPHEN 325 MG TAB PO PRN (11:00)
[2019-06-28] MEDS ORDERED: PERFLUTREN LIPID MICROSPHERE (DEFINITY) IV ONE (11:01)
[2019-06-28] MEDS ORDERED: PHARMACY GLYCEMIC MGMT CONSULT SCH (11:39)
[2019-06-28] MEDS: EZETIMIBE 10 MG TABLET PO SCH (12:56)
[2019-06-28] MEDS: CARBIDOPA/LEVODOPA 25/100MG TAB PO SCH ×3 (12:56→21:08)
[2019-06-28] MEDS: ROPINIROLE HCL 1 MG TABLET PO SCH (12:56)
[2019-06-28] MEDS: LOSARTAN POTASSIUM 50 MG TAB PO SCH (12:57)
[2019-06-28] MEDS: CLOPIDOGREL BISULFATE 75 MG TAB PO SCH (12:57)
[2019-06-28] MEDS: ROPINIROLE HCL 5 MG TABLET PO SCH (12:57)
[2019-06-28] MEDS: ISOSORBIDE MONO EXTENDED REL 60 MG TABCR PO SCH (12:57)
[2019-06-28] MEDS: FUROSEMIDE 40 MG TAB PO SCH (12:57)
[2019-06-28] MEDS: ROSUVASTATIN CALCIUM 10 MG TAB PO SCH (12:57)
[2019-06-28] MEDS: TAMSULOSIN HCL 0.4 MG CAP PO SCH (12:57)
--- NOTE | 2019-06-28 13:35 | Pharmacy Report ---
Glycemic Control Consultation - Date of Service June 28, 2019 - Scope Scope: Glycemic Pharmacist consulted by GABRIEL Melara on 06/28 for glycemic control and to write orders per [facility] inpatient glycemic control protocol - Objective Weight: 133.2 kg Accuchecks BSG (last 24hrs): 06/28/19 06/28/19 03:36 11:37 Glucose 187 H POC Glucose 136 H Laboratory Data (last 24hrs): 06/28/19 03:36 Potassium 4.1 Carbon Dioxide 33 H Anion Gap 4.0 Creatinine 0.98 Est Cr Clr Drug Dosing 100.5 - Recent Pertinent Medications Outpatient Anti-diabetic Regimen: *confirmed with [employer] records. Patient follows with Dr. Dunn as an outpatient * Toujeo 80 units BID * Novolog 30 units with meals * Liraglutide 1.8 mg SQ daily * Metformin 1 gm BID * A1c = 6.6 % 05/26/19 Risk Factors for Insulin Resistance: * Diet: type 2 diabetes - Assessment & Plan Assessment & Plan: ASSESSMENT: * 69 y/o male admitted for chest pain. He has a history of type 2 diabetes, managed with high doses of insulin in addition to a GLP-1 agonist and metformin. A1c indicates excellent glycemic control as an outpatient. Of note, his Toujeo dose was decreased at his last PCP visit, since BSGs had improved. * I do not have any recent history on his glycemic control as an inpatient so will be a little conservative with his basal doses, especially since lunch BSG is only 136 mg/dL without any of his insulin doses this AM. Will cut basal back by 25-50%, depending on BSGs. PLAN FOR INPATIENT GLYCEMIC CONTROL: * Holding outpatient metformin and liraglutide * Basal insulin * Lantus BID per the following scale: * 40 units for BSG < 110 * 60 units for BSG 110 or above * Bolus insulin * NovoLog per scale ACHS or Q6hrs while NPO * Goal Range: Low 110 mg/dL - High 140 mg/dL * Correction Factor: 5 mg/dL/unit * Nutritional / Prandial insulin per carb ratio of 1 unit per 2 grams CHO consumed * Please note that the plan above was derived based on current level of insulin resistance and hospital stress. These recommendations are appropriate for inpatient admission only. Plan of care upon discharge will need to be reassessed to avoid potential outpatient hypo/hyperglycemia. Thank you.
[2019-06-28] MEDS: INSULIN ASPART 100 UNITS/ML 3 ML PEN SC SCH ×3 (13:43→21:13)
[2019-06-28] MEDS: INSULIN GLARGINE SOLOSTAR 100 UNITS/ML 3 ML PEN SC SCH ×2 (14:05→21:13)
[2019-06-28] MEDS: RESTASIS - ORDER AWAITING ACTION SCH (16:32)
[2019-06-28] MEDS: SUCRALFATE 1 GM/10 ML UDC PO SCH ×2 (17:11→21:08)
[2019-06-28] MEDS: PANTOprazole 40 MG TAB PO SCH (17:11)
--- NOTE | 2019-06-28 19:39 | Cardiology Consultation ---
Date of Consultation June 28, 2019 Assessment & Plan (1) Chest pain: I think we can discount cardiac ischemia as the etiology of his chest pain. He appears to have had similar symptoms intermittently over the years without evidence of any obstructive coronary disease. He continues to refer to that his heart pain but I do not believe that is the true etiology. As such, we should seek alternative reasons for chest pain and try some alternative treatments. There was some esophageal thickening on his CT scan and his symptoms would be consistent with esophageal disease. He had a prolonged period of chest discomfort without elevation in his biomarkers or changes on his EKG. No objective evidence of ischemia. In light of his recurrent symptoms in the absence of known obstructive coronary disease, I believe we can discount a cardiac etiology. (2) Coronary disease: He has been maintained on a good outpatient regimen for coronary disease. He is on Zetia, clopidogrel and verapamil. Surprisingly he is doing well on his current dose of Crestor. (3) Hypertension: His blood pressure continues to be elevated. Perhaps this is because she is uncomfortable. We continued elevations in his blood pressure we could potentially intensify his antihypertensive regimen with doubling his losartan dose. History of Present Illness Reason for Consultation: Chest pain Requesting Physician: Guadalupe Attending Physician: John Butcher History of Present Illness Patient is a 61-year-old gentle with a history of coronary artery disease having previously undergone remote percutaneous intervention to the left anterior descending. He appears to have been struggling with symptoms of chest discomfort for some time. Yesterday he had a typical episode of chest discomfort which involves precordial pain radiating to his back. This also produces some element of dyspnea and perhaps a very mild pleuritic type pain. This occurred very early in the morning. Patient was not active at the time. This symptom did not appear to be improved with changes in position or use of [place]. He subsequently use sublingual nitroglycerin with only minor improvement in his symptoms. In addition to the chest discomfort the patient noted significant diaphoresis. Based on his concern regarding heart attack he contacted EMS and was transported to our facility. In route the patient was administered additional doses of nitroglycerin without significant resolution. At the emergency room he was administer narcotics with some improvement in his symptoms but no actual complete resolution. In fact, the patient continues to have symptoms of chest discomfort currently. He states that he has been having symptoms of this nature for some time. Generally speaking have an episode every couple of days. Most commonly it is associated with activity and improves with nitroglycerin or rest. His primary care physician increased his isosorbide mononitrate recently in this tended to eliminate his symptoms for a brief period of time. The patient was evaluated at [facility] earlier in the summer. He appeared to have had similar symptoms and an abnormal stress test which prompted transfer to [facility] where he underwent coronary angiography. He was noted to have a patent LAD stent and nonobstructive disease in other distributions. Allergies Allergy/AdvReac Type Severity Reaction Status Date / Time Cipro Allergy Severe Anaphylaxis Verified 12/07/16 14:38 ciprofloxacin Allergy Severe Anaphylaxis Verified 06/28/19 04:11 metoclopramide Allergy Intermediate FROM DRS Verified 06/28/19 04:11 CHART budesonide [From Symbicort] Allergy Unknown FROM Verified 06/28/19 04:11 OFFICE CHART formoterol [From Symbicort] Allergy Unknown FROM Verified 06/28/19 04:11 OFFICE CHART lactulose Allergy Unknown Unknown Verified 06/28/19 11:23 felodipine AdvReac Mild Cough Verified 06/28/19 04:11 lisinopril AdvReac Mild Cough Verified 06/28/19 04:11 simvastatin AdvReac Mild Leg Verified 06/28/19 04:11 Cramping Home Medications Home Medications Medication Instructions Recorded Confirmed Type cyclosporine [Restasis] 1 drp OPB Q12H 09/05/18 06/28/19 History latanoprost 1 drp OPB HS 09/05/18 06/28/19 History ondansetron HCl 4 mg PO DIRECTED PRN 09/05/18 06/28/19 History furosemide 40 mg tablet 40 mg PO QAM #30 tab 04/16/19 06/28/19 Rx magnesium 400 mg (as magnesium 400 mg PO BID #60 cap 04/16/19 06/28/19 Rx oxide) capsule tamsulosin 0.4 mg capsule 0.4 mg PO DAILY #90 cap 04/16/19 06/28/19 Rx ezetimibe 10 mg tablet 10 mg PO DAILY #90 tab 04/23/19 06/28/19 Rx rosuvastatin 10 mg tablet 10 mg PO DAILY #90 tab 04/23/19 06/28/19 Rx albuterol sulfate HFA 90 2 puff INHALATION Q4H PRN #1 ea 05/05/19 06/28/19 Rx mcg/actuation aerosol inhaler carbidopa 25 mg-levodopa 100 mg 1 tab PO QID #120 tab 05/05/19 06/28/19 Rx tablet clopidogrel 75 mg tablet 75 mg PO DAILY #30 tab 05/05/19 06/28/19 Rx finasteride 5 mg tablet 5 mg PO HS #30 tab 05/05/19 06/28/19 Rx insulin aspart U- 100 100 unit/mL See Rx Instructions SUBCUT 05/05/19 06/28/19 Rx subcutaneous solution DIRECTED #10 ml ipratropium-albuterol 0.5 mg-3 3 ml INHALATION QID PRN #90 ml 05/05/19 06/28/19 Rx mg(2.5 mg base)/3 mL nebulization soln liraglutide 0.6 mg/0.1 mL (18 mg/3 1.8 mg SUBCUT DAILY #9 ml 05/05/19 06/28/19 Rx mL) subcutaneous pen injector losartan 50 mg tablet 50 mg PO DAILY #30 tab 05/05/19 06/28/19 Rx metformin 1,000 mg tablet 1,000 mg PO BID #60 tab 05/05/19 06/28/19 Rx metoprolol tartrate 50 mg tablet 50 mg PO BID #60 tab 05/05/19 06/28/19 Rx nitroglycerin 0.4 mg sublingual 0.4 mg SL Q5M PRN #25 tab 05/05/19 06/28/19 Rx tablet ropinirole ER 6 mg tablet,extended 6 mg PO DAILY #30 tab 05/05/19 06/28/19 Rx release 24 hr verapamil ER (SR) 240 mg 240 mg PO HS #30 tab 05/05/19 06/28/19 Rx tablet,extended release isosorbide mononitrate ER 60 mg 60 mg PO DAILY #90 tab 05/26/19 06/28/19 Rx tablet,extended release 24 hr calcium polycarbophil 1,250 mg PO DAILY 06/28/19 06/28/19 History food supplemt, lactose-reduced 1 ea PO DAILY 06/28/19 06/28/19 History [Ensure Clear] insulin glargine U-300 conc 80 units SUBCUT BID 06/28/19 06/28/19 History [Toujeo SoloStar U-300 Insulin] nut.tx.gluc.intol,lac-free,soy 1 ea PO BID 06/28/19 06/28/19 History [Glucerna] olopatadine [Patanol] 1 drp OPHTHALMIC (EYE) Q8H PRN 06/28/19 06/28/19 History tizanidine 4 mg PO BID PRN 06/28/19 06/28/19 History Patient History Medical History COPD (chronic obstructive pulmonary disease) CVA (cerebral vascular accident) Neuropathy associated with endocrine disorder BPH (benign prostatic hyperplasia) Diabetes HTN (hypertension) Surgical History H/O heart artery stent S/P cardiac cath 04/14/19 left and coronary angiography Family History Mother Coronary heart disease Grandfather (Paternal) Myocardial infarction Grandmother (Paternal) Myocardial infarction Father Colorectal cancer Pancreatic cancer Liver cancer Social History Preferred Language: Ken[place] Communication Ability: Effective Visual Impairment: Limited Hearing Ability: Use of Hearing Aid Ethics Officer Required: No Beliefs That Will Affect Care: None marital status: Current Living Situation: Spouse Current Living Situation Comment: Lives at home with - wheelchair accessible current occupational status: retired Other Information That Helps Us Care for You: No Feels Safe at Home: Yes Safety Concerns: Feels Safe At This Time Smoking Status: Never smoker Tobacco Type: cigarettes ; Age Started Using Tobacco: 19 ; Age Quit Using Tobacco: 23 ; Do You Dip or Chew Tobacco: No ; Second Hand Exposure: Yes ; Tobacco Cessation Education Requested by Patient: No Hx Alcohol Use: Yes (did in the past) Hx Substance Use: No Childhood Exposure to Second-Hand Smoke: No Other Diet Comment: Glucerna (2), chicken noodle soup caffeine: Yes Dental Care, Regularly: Yes Physical Activity Frequency: Does not Exercise Seatbelt Use: always Sunscreen Use: No Do you think of yourself as: straight/heterosexual Review of Systems Review of Systems: All systems reviewed & are unremarkable except as noted in HPI & below He has not report frequent heartburn. He has not report difficult swallowing. He is currently nonambulatory due to significant foot pain. He generally transfers from a motorized scooter to a chair or bed. He has not report symptoms of palpitations recently. He did not endorse symptoms of dizziness or lightheadedness. He has occasional swelling of his lower extremities which waxes and wanes in severity. Physical Exam Physical Exam: The patient is alert and oriented. Mood and affect appeared normal. He answered all questions appropriately. Obese. Restless. HEENT: Pupils are equal and reactive to light and accommodation. Extraocular movements are intact. The sclerae are anicteric. Neuro: Cranial nerves intact Neck: Patient's neck is supple. He has palpable carotid pulses bilaterally without bruits on auscultation. There is no evidence of jugular venous distention. The thyroid is not enlarged. Lungs: Clear to auscultation bilaterally. He has good air movement without use of accessory muscles. No rales wheezes or rhonchi. Cardiac: Heart demonstrates a regular rate and rhythm. Normal S1 and S2. No murmurs on examination. Pulses: The patient has palpable radial pulses bilaterally that are equal in intensity Extremities: There was no evidence of hypoperfusion. There is no cyanosis or clubbing. There is no edema. Skin: I did not appreciate any rashes on examination today. Results & Data Vital Signs (Past 12 Hours) Vital Signs Temp Pulse Pulse Resp BP BP Pulse Ox 06/28/19 15:25 36.6 C 75 22 158/73 H 96 06/28/19 11:56 36.4 C L 68 16 180/79 H 95 06/28/19 10:20 36.8 C 70 69 20 196/94 H 98 06/28/19 10:00 68 18 144/66 H 95 06/28/19 09:30 83 14 133/62 96 06/28/19 09:00 73 24 154/82 H 97 06/28/19 08:31 79 24 143/104 H 95 06/28/19 08:01 84 23 149/89 H 96 06/28/19 07:30 76 18 128/57 L 96 Laboratory Results Abnormal Lab Results 06/28/19 06/28/19 06/28/19 03:36 03:36 03:36 WBC 5.42 RBC 3.61 L Hgb 10.6 L Hct 32.6 L MCV 90.3 MCH 29.4 MCHC 32.5 RDW Std Deviation 47.1 H RDW Coeff of Andres 14.1 Plt Count 75 L MPV 9.3 Immature Gran % (Auto) 0.2 Neut % (Auto) 79.1 Lymph % (Auto) 12.5 [place] % (Auto) 5.2 Eos % (Auto) 2.8 Baso % (Auto) 0.2 Immature Gran # (Auto) 0.01 Neut # (Auto) 4.29 Lymph # (Auto) 0.68 L [place] # (Auto) 0.28 Eos # (Auto) 0.15 Baso # (Auto) 0.01 Platelet Estimate Decreased L D-Dimer 690 H* Sodium 140 Potassium 4.1 Chloride 103 Carbon Dioxide 33 H Anion Gap 4.0 BUN 13 Creatinine 0.98 Est Cr Clr Drug Dosing 100.5 Est GFR ( Amer) 91.4 Est GFR (Non-Af Amer) 78.9 BUN/Creatinine Ratio 13.4 Glucose 187 H POC Glucose Calcium 9.1 Magnesium 1.9 Total Bilirubin 0.3 AST 29 ALT 21 Alkaline Phosphatase 123 H Troponin I < 0.015 NT-Pro-B Natriuret Pep 48 Total Protein 7.0 Albumin 3.0 L Globulin 4.0 Albumin/Globulin Ratio 0.8 L Lipase 69 L TSH 1.310 06/28/19 06/28/19 06/28/19 11:37 11:44 16:41 WBC RBC Hgb Hct MCV MCH MCHC RDW Std Deviation RDW Coeff of Andres Plt Count MPV Immature Gran % (Auto) Neut % (Auto) Lymph % (Auto) [place] % (Auto) Eos % (Auto) Baso % (Auto) Immature Gran # (Auto) Neut # (Auto) Lymph # (Auto) [place] # (Auto) Eos # (Auto) Baso # (Auto) Platelet Estimate D-Dimer Sodium Potassium Chloride Carbon Dioxide Anion Gap BUN Creatinine Est Cr Clr Drug Dosing Est GFR ( Amer) Est GFR (Non-Af Amer) BUN/Creatinine Ratio Glucose POC Glucose 136 H 152 H Calcium Magnesium Total Bilirubin AST ALT Alkaline Phosphatase Troponin I < 0.015 NT-Pro-B Natriuret Pep Total Protein Albumin Globulin Albumin/Globulin Ratio Lipase TSH Diagnostic Findings Echocardiogram was obtained today which revealed preserved LV systolic function. No significant valvular heart disease. Unchanged from echocardiogram performed at [facility] in March 2019 Chest x-ray obtained at the time of admission revealed cardiomegaly and volume overload ECG Additional Comments: EKG was normal sinus rhythm. Normal EKG PG Care Time/CCT Total # of Minutes Spent Total Time Spent with Patient: Total time spent is greater than 50% in coordination of care (as documented) at patient's floor/unit and/or counseling patient: (1) Chest pain Chest pain type: unspecified Qualified Code(s): R07.9 - Chest pain, unspecified
[2019-06-28] MEDS ORDERED: VERAPAMIL HCL 240 MG TABCR PO SCH (21:00)
[2019-06-28] MEDS ORDERED: FINASTERIDE 5 MG TAB PO SCH (21:00)
[2019-06-28] MEDS ORDERED: LATANOPROST 0.005% OP SOLN 2.5 ML BTL OPB SCH (21:00)
[2019-06-28] MEDS: MAGNESIUM OXIDE 400 MG TAB PO SCH (21:09)
[2019-06-28] MEDS: METOPROLOL TARTRATE 50 MG TAB PO SCH (21:10)
[2019-06-29] MEDS ORDERED: HEPARIN 100 UNIT/ML 5ML FLUSH FLUSH PRN (00:28)
[2019-06-29] MEDS: RESTASIS - ORDER AWAITING ACTION SCH ×2 (00:51→08:00)
[2019-06-29 06:42] LABS: Hematocrit (blood only) 34.2 % (42-52); Mean Corpuscular Hgb Conc 32.2 g/dL (32-36); Mean Corpuscular Volume 90.2 fL (80-100); RDW Coefficient of Variation 14.2 % (11.5-14.5); RDW Standard Deviation 46.7 fL (36.4-46.3); Red Blood Count 3.79 M/uL (4.7-6.1); White Blood Count 7.43 K/uL (4.8-10.8)
[2019-06-29 06:54] LABS: Mean Platelet Volume 9.7 fL (7.4-10.4); Platelet Count 88 K/uL (130-400)
[2019-06-29 07:23] LABS: BUN Creatinine Ratio 12.2 (10-20); Calcium 8.8 mg/dl (8.5-10.1); Creatinine Clr Calc Pharmacy 115.8 ml/min; Est GFR (African American) 103.8; Est GFR (Non-African American) 89.5
[2019-06-29] MEDS: ROPINIROLE HCL 1 MG TABLET PO SCH (08:03)
[2019-06-29] MEDS: ISOSORBIDE MONO EXTENDED REL 60 MG TABCR PO SCH (08:03)
[2019-06-29] MEDS: ROPINIROLE HCL 5 MG TABLET PO SCH (08:03)
[2019-06-29] MEDS: FUROSEMIDE 40 MG TAB PO SCH (08:03)
[2019-06-29] MEDS: MAGNESIUM OXIDE 400 MG TAB PO SCH (08:03)
[2019-06-29] MEDS: TAMSULOSIN HCL 0.4 MG CAP PO SCH (08:03)
[2019-06-29] MEDS: PANTOprazole 40 MG TAB PO SCH (08:03)
[2019-06-29] MEDS: CLOPIDOGREL BISULFATE 75 MG TAB PO SCH (08:03)
[2019-06-29] MEDS: EZETIMIBE 10 MG TABLET PO SCH (08:03)
[2019-06-29] MEDS: METOPROLOL TARTRATE 50 MG TAB PO SCH (08:03)
[2019-06-29] MEDS: CARBIDOPA/LEVODOPA 25/100MG TAB PO SCH ×2 (08:03→12:01)
[2019-06-29] MEDS: ROSUVASTATIN CALCIUM 10 MG TAB PO SCH (08:04)
[2019-06-29] MEDS: INSULIN GLARGINE SOLOSTAR 100 UNITS/ML 3 ML PEN SC SCH (08:04)
[2019-06-29] MEDS: LOSARTAN POTASSIUM 50 MG TAB PO SCH (08:04)
[2019-06-29] MEDS: SUCRALFATE 1 GM/10 ML UDC PO SCH ×2 (08:04→12:01)
[2019-06-29] MEDS: INSULIN ASPART 100 UNITS/ML 3 ML PEN SC SCH ×2 (08:05→12:01)
--- NOTE | 2019-06-29 09:46 | Emergency Department Note ---
Entered by Bailey Martinez acting as a scribe for Caryn Sorto DO History of Present Illness General Chief complaint: Chest Pain Stated complaint: chest pain Time Seen by Provider: 06/28/19 03:12 Source: patient History of Present Illness Onset (ago): hour(s) (earlier tonight) Location: chest Radiation: back, neck and other (shoulder) Pain Consistency: + other (worsening) Associated symptoms: + diaphoresis, + nausea/vomiting (nausea) and + shortness of breath Treatments prior to arrival: aspirin and other (nitroglycerin ) The patient is a 69 year old M who presents to the Emergency Room with complaints of worsening chest pain that started earlier tonight. The patient notes that his chest pain radiates to his left shoulder, back, and neck. The patient states that tonight he was in bed and was antsy. He notes that he initially thought he was experiencing indigestion so he took medication. He adds that the medication did not help. He states that due to this, he took 4 nitroglycerin and called EMS. He notes that EMS gave him two more nitroglycerin and aspirin. He adds that he has experienced this pain in the past with prior heart attacks. Patient states he does see Dr. English locally. He notes that he had a heart catheterization last month in [place], [place]. No additional stents placed, states he did have some minor blockages. He adds that his chest pain usually occurs after exertion. He states that he is currently experiencing shortness of breath, diaphoresis, and nausea. He adds that he has chronic urinary and bowel problems which necessitates the use of a diaper. He denies having any kidney issues. Home Medications Home Medications Medication Instructions Recorded Confirmed Type cyclosporine [Restasis] 1 drp OPB Q12H 09/05/18 06/28/19 History latanoprost 1 drp OPB HS 09/05/18 06/28/19 History ondansetron HCl 4 mg PO DIRECTED PRN 09/05/18 06/28/19 History furosemide 40 mg tablet 40 mg PO QAM #30 tab 04/16/19 06/28/19 Rx magnesium 400 mg (as magnesium 400 mg PO BID #60 cap 04/16/19 06/28/19 Rx oxide) capsule tamsulosin 0.4 mg capsule 0.4 mg PO DAILY #90 cap 04/16/19 06/28/19 Rx ezetimibe 10 mg tablet 10 mg PO DAILY #90 tab 04/23/19 06/28/19 Rx rosuvastatin 10 mg tablet 10 mg PO DAILY #90 tab 04/23/19 06/28/19 Rx albuterol sulfate HFA 90 2 puff INHALATION Q4H PRN #1 ea 05/05/19 06/28/19 Rx mcg/actuation aerosol inhaler carbidopa 25 mg-levodopa 100 mg 1 tab PO QID #120 tab 05/05/19 06/28/19 Rx tablet clopidogrel 75 mg tablet 75 mg PO DAILY #30 tab 05/05/19 06/28/19 Rx finasteride 5 mg tablet 5 mg PO HS #30 tab 05/05/19 06/28/19 Rx insulin aspart U- 100 100 unit/mL See Rx Instructions SUBCUT 05/05/19 06/28/19 Rx subcutaneous solution DIRECTED #10 ml ipratropium-albuterol 0.5 mg-3 3 ml INHALATION QID PRN #90 ml 05/05/19 06/28/19 Rx mg(2.5 mg base)/3 mL nebulization soln liraglutide 0.6 mg/0.1 mL (18 mg/3 1.8 mg SUBCUT DAILY #9 ml 05/05/19 06/28/19 Rx mL) subcutaneous pen injector losartan 50 mg tablet 50 mg PO DAILY #30 tab 05/05/19 06/28/19 Rx metformin 1,000 mg tablet 1,000 mg PO BID #60 tab 05/05/19 06/28/19 Rx metoprolol tartrate 50 mg tablet 50 mg PO BID #60 tab 05/05/19 06/28/19 Rx nitroglycerin 0.4 mg sublingual 0.4 mg SL Q5M PRN #25 tab 05/05/19 06/28/19 Rx tablet ropinirole ER 6 mg tablet,extended 6 mg PO DAILY #30 tab 05/05/19 06/28/19 Rx release 24 hr verapamil ER (SR) 240 mg 240 mg PO HS #30 tab 05/05/19 06/28/19 Rx tablet,extended release isosorbide mononitrate ER 60 mg 60 mg PO DAILY #90 tab 05/26/19 06/28/19 Rx tablet,extended release 24 hr calcium polycarbophil 1,250 mg PO DAILY 06/28/19 06/28/19 History food supplemt, lactose-reduced 1 ea PO DAILY 06/28/19 06/28/19 History [Ensure Clear] insulin glargine U-300 conc 80 units SUBCUT BID 06/28/19 06/28/19 History [Toujeo SoloStar U-300 Insulin] nut.tx.gluc.intol,lac-free,soy 1 ea PO BID 06/28/19 06/28/19 History [Glucerna] olopatadine [Patanol] 1 drp OPHTHALMIC (EYE) Q8H PRN 06/28/19 06/28/19 History tizanidine 4 mg PO BID PRN 06/28/19 06/28/19 History Allergies Allergy/AdvReac Type Severity Reaction Status Date / Time Cipro Allergy Severe Anaphylaxis Verified 12/07/16 14:38 ciprofloxacin Allergy Severe Anaphylaxis Verified 06/28/19 04:11 metoclopramide Allergy Intermediate FROM DRS Verified 06/28/19 04:11 CHART budesonide [From Symbicort] Allergy Unknown FROM Verified 06/28/19 04:11 OFFICE CHART formoterol [From Symbicort] Allergy Unknown FROM Verified 06/28/19 04:11 OFFICE CHART lactulose Allergy Unknown Unknown Verified 06/28/19 11:23 felodipine AdvReac Mild Cough Verified 06/28/19 04:11 lisinopril AdvReac Mild Cough Verified 06/28/19 04:11 simvastatin AdvReac Mild Leg Verified 06/28/19 04:11 Cramping Past Med/Surg History Medical History COPD (chronic obstructive pulmonary disease) CVA (cerebral vascular accident) Neuropathy associated with endocrine disorder BPH (benign prostatic hyperplasia) Diabetes HTN (hypertension) Surgical History H/O heart artery stent S/P cardiac cath 04/14/19 left and coronary angiography Family History Mother Coronary heart disease Grandfather (Paternal) Myocardial infarction Grandmother (Paternal) Myocardial infarction Father Colorectal cancer Pancreatic cancer Liver cancer Social History Preferred Language: Estonian Communication Ability: Effective Visual Impairment: Limited Hearing Ability: Use of Hearing Aid Latent Fingerprint Examiner Required: No Beliefs That Will Affect Care: None marital status: Current Living Situation: Spouse Current Living Situation Comment: Lives at home with - wheelchair ac cessible current occupational status: retired Other Information That Helps Us Care for You: No Feels Safe at Home: Yes Safety Concerns: Feels Safe At This Time Smoking Status: Never smoker Tobacco Type: cigarettes ; Age Started Using Tobacco: 19 ; Age Quit Using Tobacco: 23 ; Do You Dip or Chew Tobacco: No ; Second Hand Exposure: Yes ; Tobacco Cessation Education Requested by Patient: No Hx Alcohol Use: Yes (did in the past) Hx Substance Use: No Childhood Exposure to Second-Hand Smoke: No Other Diet Comment: Glucerna (2), chicken noodle soup caffeine: Yes Dental Care, Regularly: Yes Physical Activity Frequency: Does not Exercise Seatbelt Use: always Sunscreen Use: No Do you think of yourself as: straight/heterosexual Review of Systems See HPI for pertinent positives & negatives. and A total of 10 systems reviewed and were otherwise negative Physical Exam Vital Signs Vital Signs - 24 hr 06/28/19 03:08 06/28/19 03:15 06/28/19 03:30 Temperature 98.1 F Temperature Source Oral Sepsis Recent Fever Within 48 Hours No Sepsis New/Unexplained Change in Mental Status No Sepsis Action Taken by Nursing No Action Required Pulse Rate 90 88 83 Pulse Rate [Right Finger] Pulse Rate from SpO2 Sensor 91 H 83 Pulse Rhythm [Right Finger] Pulse Strength [Right Finger] Respiratory Rate 26 H 20 16 Respiratory Effort / Characteristics Non-Labored Spontaneous Respiratory Depth Normal Respiratory Pattern Blood Pressure 113/59 L 113/59 L 120/65 Blood Pressure [Right Arm] Blood Pressure Mean 77 77 83 Blood Pressure Mean [Right Arm] Blood Pressure Position [Right Arm] Pulse Oximetry 95 95 98 Oxygen Delivery Method Nasal Cannula Oxygen Flow Rate 3 06/28/19 03:49 06/28/19 04:00 06/28/19 04:30 Temperature Temperature Source Sepsis Recent Fever Within 48 Hours Sepsis New/Unexplained Change in Mental Status Sepsis Action Taken by Nursing Pulse Rate 86 81 Pulse Rate [Right Finger] Pulse Rate from SpO2 Sensor 85 80 Pulse Rhythm [Right Finger] Pulse Strength [Right Finger] Respiratory Rate 22 17 Respiratory Effort / Characteristics Respiratory Depth Respiratory Pattern Blood Pressure 137/74 136/82 Blood Pressure [Right Arm] Blood Pressure Mean 95 100 Blood Pressure Mean [Right Arm] Blood Pressure Position [Right Arm] Pulse Oximetry 97 98 96 Oxygen Delivery Method Nasal Cannula Oxygen Flow Rate 3 06/28/19 05:00 06/28/19 05:29 06/28/19 05:30 Temperature Temperature Source Sepsis Recent Fever Within 48 Hours Sepsis New/Unexplained Change in Mental Status Sepsis Action Taken by Nursing Pulse Rate 82 77 77 Pulse Rate [Right Finger] 79 Pulse Rate from SpO2 Sensor 82 78 78 Pulse Rhythm [Right Finger] Regular Pulse Strength [Right Finger] Normal Respiratory Rate 16 23 21 Respiratory Effort / Characteristics Non-Labored Respiratory Depth Normal Respiratory Pattern Regular Blood Pressure 138/83 150/82 H 145/82 H Blood Pressure [Right Arm] 150/82 H Blood Pressure Mean 101 104 103 Blood Pressure Mean [Right Arm] 104 Blood Pressure Position [Right Arm] Lying Pulse Oximetry 97 97 97 Oxygen Delivery Method Room Air Oxygen Flow Rate 06/28/19 06:00 Temperature Temperature Source Sepsis Recent Fever Within 48 Hours Sepsis New/Unexplained Change in Mental Status Sepsis Action Taken by Nursing Pulse Rate 78 Pulse Rate [Right Finger] Pulse Rate from SpO2 Sensor 78 Pulse Rhythm [Right Finger] Pulse Strength [Right Finger] Respiratory Rate 16 Respiratory Effort / Characteristics Respiratory Depth Respiratory Pattern Blood Pressure 136/69 Blood Pressure [Right Arm] Blood Pressure Mean 91 Blood Pressure Mean [Right Arm] Blood Pressure Position [Right Arm] Pulse Oximetry 96 Oxygen Delivery Method Oxygen Flow Rate GENERAL: morbidly obese, alert, well appearing, well nourished, no distress, non-toxic EYE EXAM: normal conjunctiva, PERRL and EOM's grossly intact OROPHARYNX: no exudate, no erythema, lips, buccal mucosa, and tongue normal and mucous membranes are moist NECK: supple, no nuchal rigidity, no adenopathy, non-tender LUNGS: Clear to auscultation. Normal chest wall mechanics. No reproducible chest wall tenderness. HEART: no murmurs, S1 normal and S2 normal ABDOMEN: abdomen soft, non-tender, normo-active bowel sounds, no masses, no rebound or guarding. BACK: Back is symmetrical on inspection and there is no deformity, no midline tenderness, no CVA tenderness. SKIN: no rashes and no bruising UPPER EXTREMITIES: upper extremities are grossly normal. FROM, nml pulses b/l. LOWER EXTREMITIES: 1+ edema. FROM, nml pulses b/l. NEURO EXAM: Normal sensorium, cranial nerves II-XII grossly intact, normal speech, no gross weakness of arms, no gross weakness of legs. Course 0310: The patient was evaluated in room B4B. A complete history and physical exam was performed. 0445: Patient here with concerning story for possible ACS given prior cardiac history and multiple risk factors. I was able to obtain outside records showing recent cardiac catheterization at [facility]. This as well as the accompanying echo were reviewed. Patient symptoms at this time not consistent with acute congestive heart failure, although given his cardiac history and prior stent I am concerned for evolving ACS/unstable angina patient's pain was improved here with nitro taken at home and then additional given by EMS, additional Nitropaste was applied here and patient was given additional IV doses of fentanyl to help with pain control. 0616: I updated the patient on his test results. Patient states his pain is slowly returning, will give additional fentanyl. Patient in agreement with plan for additional inpatient evaluation. 0629: I reviewed the patient's case with Dr. Goetz, [facility] Hospitalist. He will evaluate the patient for further management. Consultations Consultation #1: I reviewed the patient's case with Dr. Goetz, [facility] Hospitalist. He will evaluate the patient for further management. Time: 06:29 Administered Medications Carbidopa/Levodopa (Sinemet 25/100 Mg) 1 tab PO QID [facility] Stop: 07/28/19 12:59 Last Admin: 06/29/19 08:03 Dose: 1 tab Documented by: [id number] Admin: 06/28/19 21:08 Dose: 1 tab Documented by: [id number] Admin: 06/28/19 17:10 Dose: 1 tab Documented by: [id number] Admin: 06/28/19 12:56 Dose: 1 tab Documented by: [id number] Clopidogrel Bisulfate (Plavix) 75 mg PO DAILY [facility] Stop: 07/28/19 12:59 Last Admin: 06/29/19 08:03 Dose: 75 mg Documented by: [id number] Admin: 06/28/19 12:57 Dose: 75 mg Documented by: [id number] Ezetimibe (Zetia) 10 mg PO DAILY [facility] Stop: 07/28/19 12:59 Last Admin: 06/29/19 08:03 Dose: 10 mg Documented by: [id number] Admin: 06/28/19 12:56 Dose: 10 mg Documented by: [id number] Finasteride (Proscar) 5 mg PO HS ANILA Stop: 07/28/19 20:59 Last Admin: 06/28/19 21:10 Dose: 5 mg Documented by: [id number] Furosemide (Lasix) 40 mg PO QAM ANILA Stop: 07/28/19 12:59 Last Admin: 06/29/19 08:03 Dose: 40 mg Documented by: [id number] Admin: 06/28/19 12:57 Dose: 40 mg Documented by: [id number] Insulin Aspart (Novolog Flexpen) 0 units SC ACHS ANILA Stop: 07/28/19 12:44 Last Admin: 06/29/19 08:05 Dose: 24 units Documented by: [id number] Cosigned by: [id number] Admin: 06/28/19 21:13 Dose: 1 units Documented by: [id number] Cosigned by: [id number] Admin: 06/28/19 17:13 Dose: 6 units Documented by: [id number] Cosigned by: [id number] Admin: 06/28/19 13:43 Dose: Not Given Documented by: [id number] Cosigned by: [id number] Insulin Glargine (Lantus Solostar Pen) 0 units SC BID ANILA; Protocol Stop: 07/28/19 12:59 Last Admin: 06/29/19 08:04 Dose: 60 units Documented by: [id number] Cosigned by: [id number] Admin: 06/28/19 21:13 Dose: 60 units Documented by: [id number] Cosigned by: [id number] Admin: 06/28/19 14:05 Dose: 60 units Documented by: [id number] Cosigned by: [id number] Isosorbide Mononitrate (Imdur Extended Rel) 60 mg PO DAILY ANILA Stop: 07/28/19 12:59 Last Admin: 06/29/19 08:03 Dose: 60 mg Documented by: [id number] Admin: 06/28/19 12:57 Dose: 60 mg Documented by: [id number] Latanoprost (Xalatan Oph) 1 drops OPB HS ANILA Stop: 07/28/19 20:59 Last Admin: 06/28/19 21:11 Dose: 1 drops Documented by: [id number] Losartan Potassium (Cozaar) 50 mg PO DAILY ANILA Stop: 07/28/19 12:59 Last Admin: 06/29/19 08:04 Dose: 50 mg Documented by: [id number] Admin: 06/28/19 12:57 Dose: 50 mg Documented by: [id number] Magnesium Oxide (Mag-Ox) 400 mg PO BID [facility] Stop: 07/28/19 20:59 Last Admin: 06/29/19 08:03 Dose: 400 mg Documented by: [id number] Admin: 06/28/19 21:09 Dose: 400 mg Documented by: [id number] Metoprolol Tartrate (Lopressor) 50 mg PO BID ANILA Stop: 07/28/19 20:59 Last Admin: 06/29/19 08:03 Dose: 50 mg Documented by: [id number] Admin: 06/28/19 21:10 Dose: 50 mg Documented by: [id number] Miscellaneous (Order Awaiting Action) 1 ea N/A QS [facility] Stop: 07/28/19 15:59 Last Admin: 06/29/19 08:00 Dose: Not Given Documented by: [id number] Admin: 06/29/19 00:51 Dose: Not Given Documented by: [id number] Admin: 06/28/19 16:32 Dose: Not Given Documented by: [id number] Pantoprazole Sodium (Protonix) 40 mg PO QAM [facility] Stop: 07/28/19 16:14 Last Admin: 06/29/19 08:03 Dose: 40 mg Documented by: [id number] Admin: 06/28/19 17:11 Dose: 40 mg Documented by: [id number] Ropinirole HCl (Requip) 5 mg PO DAILY [facility]; Protocol Stop: 07/28/19 12:59 Last Admin: 06/29/19 08:03 Dose: 5 mg Documented by: [id number] Admin: 06/28/19 12:57 Dose: 5 mg Documented by: [id number] Ropinirole HCl (Requip) 1 mg PO DAILY [facility]; Protocol Stop: 07/28/19 12:59 Last Admin: 06/29/19 08:03 Dose: 1 mg Documented by: [id number] Admin: 06/28/19 12:56 Dose: 1 mg Documented by: [id number] Rosuvastatin Calcium (Crestor) 10 mg PO DAILY [facility] Stop: 07/28/19 12:59 Last Admin: 06/29/19 08:04 Dose: 10 mg Documented by: [id number] Admin: 06/28/19 12:57 Dose: 10 mg Documented by: [id number] Sucralfate (Carafate) 1 gm PO QID ANILA Stop: 07/28/19 16:59 Last Admin: 06/29/19 08:04 Dose: 1 gm Documented by: [id number] Admin: 06/28/19 21:08 Dose: 1 gm Documented by: [id number] Admin: 06/28/19 17:11 Dose: 1 gm Documented by: [id number] Tamsulosin HCl (Flomax) 0.4 mg PO DAILY ANILA Stop: 07/28/19 12:59 Last Admin: 06/29/19 08:03 Dose: 0.4 mg Documented by: [id number] Admin: 06/28/19 12:57 Dose: 0.4 mg Documented by: [id number] Tizanidine HCl (Zanaflex) 4 mg PO BID PRN PRN Reason: Muscle Spasm Stop: 07/28/19 10:59 Last Admin: 06/28/19 12:56 Dose: 4 mg Documented by: [id number] Verapamil HCl (Calan Sr) 240 mg PO HS [facility] Stop: 07/28/19 20:59 Last Admin: 06/28/19 21:09 Dose: 240 mg Documented by: [id number] Discontinued Medications Al Hydrox/Mg Hydrox/Simethicone () 1 dose PO ONE STA Stop: 06/28/19 09:38 Last Admin: 06/28/19 09:42 Dose: 1 dose Documented by: [id number] Fentanyl Citrate (Fentanyl Citrate) 100 mcg IV Q15M PRN PRN Reason: Pain Stop: 07/12/19 04:32 Last Admin: 06/28/19 06:21 Dose: 100 mcg Documented by: [id number] Admin: 06/28/19 04:42 Dose: 100 mcg Documented by: [id number] Ioversol (Optiray 320 125ml) 119 ml IV ONCE PRN PRN Reason: Interaction Checking Stop: 07/02/19 05:26 Last Admin: 06/28/19 05:27 Dose: 119 ml Documented by: [id number] Nitroglycerin (Nitro-Bid 2%) 1 inch EXT NOW STA Stop: 06/28/19 03:27 Last Admin: 06/28/19 03:35 Dose: 1 inch Documented by: [id number] Ondansetron HCl (Zofran) 4 mg IV NOW STA Stop: 06/28/19 04:03 Last Admin: 06/28/19 04:07 Dose: 4 mg Documented by: [id number] Perflutren Lipid Microsphere (Definity) 2 ml IV ONCE ONE Stop: 06/28/19 11:02 Last Admin: 06/28/19 11:03 Dose: 2 ml Documented by: [id number] Medical Decision Making Differential Diagnosis Differential diagnoses includes but is not limited to acute coronary syndrome, myocardial infarction, pericarditis, pulmonary embolus, aortic dissection, pneumonia, pneumothorax, musculoskeletal, shingles, esophageal. Medical Records Attestation: I reviewed the patient's medical records. Home Medications Current Medication List: was personally reviewed by me Laboratory Data Attestation: I reviewed the patient's lab results. Result diagrams: 06/29/19 06:00 06/29/19 06:00 Lab Results 06/28/19 06/28/19 06/28/19 Range/Units 03:36 03:36 03:36 WBC 5.42 (4.8-10.8) K/uL RBC 3.61 L (4.7-6.1) M/uL Hgb 10.6 L (14.0-18.0) g/dL Hct 32.6 L (42-52) % MCV 90.3 (80-100) fL MCH 29.4 (25-34) pg MCHC 32.5 (32-36) g/dL RDW Std Deviation 47.1 H (36.4-46.3) fL RDW Coeff of Andres 14.1 (11.5-14.5) % Plt Count 75 L (130-400) K/uL MPV 9.3 (7.4-10.4) fL Immature Gran % (Auto) 0.2 % Neut % (Auto) 79.1 % Lymph % (Auto) 12.5 % [place] % (Auto) 5.2 % Eos % (Auto) 2.8 % Baso % (Auto) 0.2 % Immature Gran # (Auto) 0.01 (0.00-0.02) K/uL Neut # (Auto) 4.29 (1.4-6.5) K/uL Lymph # (Auto) 0.68 L (1.2-3.4) K/uL [place] # (Auto) 0.28 (0.11-0.59) K/uL Eos # (Auto) 0.15 (0-0.5) K/uL Baso # (Auto) 0.01 (0-0.2) K/uL Platelet Estimate Decreased L (Normal) D-Dimer 690 H* (0-500) ug/L FEU Sodium 140 (136-145) mmol/L Potassium 4.1 (3.5-5.1) mmol/L Chloride 103 (98-107) mmol/L Carbon Dioxide 33 H (21-32) mmol/L Anion Gap 4.0 (3-11) BUN 13 (7-18) mg/dl Creatinine 0.98 (0.6-1.4) mg/dl Est Cr Clr Drug Dosing 100.5 ml/min Est GFR ( Amer) 91.4 Est GFR (Non-Af Amer) 78.9 BUN/Creatinine Ratio 13.4 (10-20) Glucose 187 H (70-99) mg/dl Calcium 9.1 (8.5-10.1) mg/dl Magnesium 1.9 (1.8-2.4) mg/dl Total Bilirubin 0.3 (0.2-1) mg/dl AST 29 (15-37) U/L ALT 21 (12-78) U/L Alkaline Phosphatase 123 H (45-117) U/L Troponin I < 0.015 (0-0.045) ng/ml NT-Pro-B Natriuret Pep 48 (0-900) pg/ml Total Protein 7.0 (6.4-8.2) gm/dl Albumin 3.0 L (3.4-5.0) gm/dl Globulin 4.0 (2.5-4.0) gm/dl Albumin/Globulin Ratio 0.8 L (0.9-2) Lipase 69 L (73-393) U/L TSH 1.310 (0.300-4.500) uIu/ml Imaging Data Attestation: I personally reviewed and interpreted this imaging study as follows: My Impression: XR Chest 1V: Cardiomegaly, no effusions, port noted in right chest, no focal consolidation, no acute pulmonary edema Radiologist's Impression: CTA Chest: No aortic aneurysm or dissection. no PE. Cardiomegaly. Multivessel coronary calcification but not pericardial effusion. No consolidation, pleural effusion or pneumothorax. Small calcified left upper l obe granuloma. Splenomegaly is nonspecific. ECG Data Attestation: I personally reviewed and interpreted this ECG as follows: Indication: chest pain Rate (beats per minute): 88 Rhythm: sinus rhythm Findings: + other (normal axis, normal intervals) and + Q waves (Lead 3); no acute ischemic change and no ectopy Blood Pressure Blood Pressure Findings: Elevated blood pressure Blood Pressure Disposition: further management by hospitalist RONA King Patient with significant cardiac history as well as prior PCI with stenting. Patient with multiple risk factors and recurrent symptoms consistent with his prior CA after recent medical management and optimization following a cardiac catheterization at [facility] last month. Due to concern for possible unstable angina despite recent catheterization given his description and persistence of symptoms despite nitro at home, case was discussed with hospitalist for additional evaluation and treatment. Patient had no EKG changes here and a negative troponin. Patient is thrombocytopenic and anemic however those appear stable compared to prior. I do not suspect occult infectious etiology. Patient was sent for CT angiography of the chest, no PE, no dissection, no tamponade or effusion noted. No evidence of occult infectious etiology. Patient and family were made aware of all results and were in agreement with plan. Impression & Plan Chest pain, Unstable angina Discharge Plan Visit Data *Final* Discharge Date/Time: 06/28/19 10:12 Chief Complaint: Chest Pain Stated Complaint: chest pain ED Provider: Caryn Sorto Discharge Problem: Chest pain, Unstable angina Patient Disposition: Admitted As Inpatient Condition: Fair Discharge Instructions Interventions: ED Discharge Assessment Last Done: 06/28/19 10:12 The scribe's documentation has been prepared under my direction and personally reviewed by me in its entirety. I confirm that the note above accurately reflects all work, treatment, procedures, and medical decision making performed by me.
--- NOTE | 2019-06-29 10:15 | Discharge Summary ---
Date of Service June 29, 2019 Admission HPI Per Admitting Provider Patient is a 69 year old white male presents with complaints of chest pain with PMH significant for CAD (s/p PCI to LAD April 2017 [facility]), hypercholesterolemia, DM II, COPD, parkinsons, hx CVA, The patient recently had a cardiac catheterization May 2019 in [place], which he states showed blockages of 20-40% and did not require intervention at that time. The patient has had complaints of chest pain at baseline, which he takes nitro and isosorbide for, but states this morning around 1:30am he developed severe right sided chest pain and right after breaking out into a sweat. The patient states he took 3 nitro, five minutes apart at home before EMS arrived. He states his chest pain remained 7/10 despite nitro x 3, and was only decreased to his current level of 5/10 with an additional two doses administered by EMS. He describes the pain as a dull sensation within his chest, similar to his symptoms prior to [place] in 2006, which is located substernally with radiation to his right shoulder and neck. The patient has felt nauseous since this morning and had one bout of emesis prior to EMS arrival, without hematemesis. Of note, the patient was recently titrated up from 1/4 tablet of 60mg isosorbide to a full tablet over the past several weeks, which have helped his symptoms up until this morning. Admission Exam Per Admitting Provider Constitutional: well nourished, + obese and cooperative uncomfortable appearing Eyes: + anicteric sclerae and PERRL Neurologic: tremor right hand Principal Diagnosis Esophagitis, Stable Angina Discharge Exam Constitutional WD/WN, vitals as above + obese and cooperative Eyes PERRL, conjunctivae normal, anicteric sclerae Neck trachea midline, no thyromegaly Respiratory normal respiratory effort; no respiratory distress and no labored breathing Auscultation: + crackles (bibasilar crackles) Cardiovascular RRR, no murmur, no edema Gastrointestinal (Abdomen) normal bowel sounds, soft, nontender, no hepatosplenomegaly Skin no rashes, warm and dry Psychiatric A+Ox3, euthymic affect Discharge Data Allergies Allergy/AdvReac Type Severity Reaction Status Date / Time Cipro Allergy Severe Anaphylaxis Verified 12/07/16 14:38 ciprofloxacin Allergy Severe Anaphylaxis Verified 06/28/19 04:11 metoclopramide Allergy Intermediate FROM DRS Verified 06/28/19 04:11 CHART budesonide [From Symbicort] Allergy Unknown FROM Verified 06/28/19 04:11 OFFICE CHART formoterol [From Symbicort] Allergy Unknown FROM Verified 06/28/19 04:11 OFFICE CHART lactulose Allergy Unknown Unknown Verified 06/28/19 11:23 felodipine AdvReac Mild Cough Verified 06/28/19 04:11 lisinopril AdvReac Mild Cough Verified 06/28/19 04:11 simvastatin AdvReac Mild Leg Verified 06/28/19 04:11 Cramping Consultations 06/28/19 11:00 Consult Cardiology Routine Ordered Studies 06/28/19 04:33 CT angio chest PE protocol Urgent IMPRESSION: 1. No evidence of pulmonary embolus. 2. Mild diffuse bronchial wall thickening. Correlate clinically for bronchitis, smoking-related lung injury, or chronic aspiration. No focal infiltrate to suggest pneumonia. 3. Small bilateral hilar lymph nodes, likely reactive. 4. Mild diffuse esophageal dilatation and wall thickening, which could suggest esophagitis. 5. Benign morphology solid 5 mm fissural nodule in the right middle lobe. Follow-up per Fleischner Society 2017 recommendations below. Single nodule; size < 6 mm * Low risk patients: No routine follow-up * High risk patients: Optional CT at 12 months Hospital Course (1) Chest pain: Patient admitted with anginal symptoms and was admitted under observation to rule out ACS. Patient with significant cardiac history- s/p PCI with TREE to LAD in 2017. Cardiac catheterization report May 2019 in [place] with non- obstructive CAD- 20% proximal LAD, 40% mid LCx. Follows locally with Dr. English. Patient was given full dose of isosorbide 60mg during admission. Serial troponins negative, EKG without acute changes. ECHO without wall motion abnormalities. CT Chest for PE without acute pulmonary emboli. However, of note, patient discovered to have evidence of esophagitis on CT scan, and was initiated on pro tonix and carafate therapy with improvement of symptoms. (2) COPD (chronic obstructive pulmonary disease): Stable - Continue home meds- Duonebs, Albuterol prn - Of note: benign 5mm fissural nodule of RML with recommendations per Fleischner Society for optional CT at 12 months for follow-up (3) Hypertension: Continue home meds- metoprolol, losartan (4) Parkinson disease: Stable - Patient with history of Parkinson's disease with Lewy Body- sees Dr. Bruner as outpatient - Continue home medications- sinemet, requip (5) BPH (benign prostatic hyperplasia): Stable -Continue home meds- tamsulosin, finasteride (6) Diabetes mellitus: Stable - Patient controlled on SSI during admission, with good glycemic control. A1c 6.6. (7) DVT prophylaxis: - SCDs during hospital admission Total Time Total Time Spent Total Time Spent (In Minutes): 45 Total Time Includes: Examination of the Patient, Discharge Planning, Medication Reconciliation and Communication With Other Providers Discharge Plan Discharge Items Patient Disposition: Home - Self-Care Reason For Visit: CHEST PAIN Discharge Diagnosis: Esophagitis, Angina Condition on Discharge: Fair Activity: Resume your previous activity Bathing: No limitations Non-emergency contact: Primary Care Provider Call non-emergency contact if: you have any medication questions, your symptoms worsen, your pain is not controlled, your pain is worsening and your pain is unusual for you Follow-up/Referrals: Abner Dunn MD [Primary Care Provider] - Diet: Carb Consistent or DM2 and Heart Healthy Diet Comment: Please remain upright for at least thirty minutes after eating. Addtl Attending Provider Instructions: Please follow-up with your primary care provider within the next week. You will be called on Sunday with follow-up appointments with Dr. Starks regarding PPI therapy for esophagitis. You will also receive an appointment with Dr. English for your anginal symptoms and further medical management. If you do not hear anything by Sunday, please call the office. You have been given a prescription for sucralfate and pantoprazole for your esophagitis; please take as prescribed until seen by Dr. Starks's office. Pending Studies at Discharge: No Stand-Alone Forms: Call Back Authorization, [facility]) Medications and DC Order Prescriptions: New pantoprazole 40 mg tablet,delayed release (DR/EC) 40 mg PO DAILY Qty: 30 RF: 0 sucralfate [Carafate] 1 gram tablet 1 gm PO BID Qty: 14 RF: 0 Continued ezetimibe [Zetia] 10 mg tablet 10 mg PO DAILY Qty: 90 RF: 3 rosuvastatin [Crestor] 10 mg tablet 10 mg PO DAILY Qty: 90 RF: 3 isosorbide mononitrate 60 mg tablet extended release 24 hr 60 mg PO DAILY Qty: 90 RF: 3 furosemide 40 mg tablet 40 mg PO QAM Qty: 30 RF: 5 tamsulosin 0.4 mg capsule 0.4 mg PO DAILY Qty: 90 RF: 3 magnesium oxide 400 mg magnesium capsule 400 mg PO BID Qty: 60 RF: 0 albuterol sulfate [Proventil HFA] 90 mcg/actuation HFA aerosol inhaler 2 puff Inhalation Q4H PRN (Reason: Shortness Of Breath Or Wheezing) Qty: 1 RF: 5 carbidopa-levodopa 25-100 mg tablet 1 tab PO QID Qty: 120 RF: 5 clopidogrel [Plavix] 75 mg tablet 75 mg PO DAILY Qty: 30 RF: 5 finasteride 5 mg tablet 5 mg PO HS Qty: 30 RF: 5 Novolog U-100 Insulin aspart 100 unit/mL solution See Rx Instructions SUBCUT DIRECTED Qty: 10 RF: 5 ipratropium-albuterol 0.5 mg-3 mg(2.5 mg base)/3 mL solution for nebulization 3 ml INHALATION QID PRN (Reason: Shortness Of Breath Or Wheezing) Qty: 90 RF: 5 liraglutide 0.6 mg/0.1 mL (18 mg/3 mL) pen injector 1.8 mg SUBCUT DAILY Qty: 9 RF: 5 losartan 50 mg tablet 50 mg PO DAILY Qty: 30 RF: 5 metformin 1,000 mg tablet 1,000 mg PO BID Qty: 60 RF: 5 metoprolol tartrate 50 mg tablet 50 mg PO BID Qty: 60 RF: 5 nitroglycerin 0.4 mg tablet, sublingual 0.4 mg SL Q5M PRN (Reason: chest pain x3 doses) Qty: 25 RF: 1 ropinirole 6 mg tablet extended release 24 hr 6 mg PO DAILY Qty: 30 RF: 5 verapamil 240 mg tablet extended release 240 mg PO HS Qty: 30 RF: 5 latanoprost 0.005 % Drops 1 drp OPB HS RF: 0 ondansetron HCl 4 mg Tablet 4 mg PO DIRECTED PRN (Reason: Nausea) RF: 0 Restasis 0.05 % Dropperette 1 drp OPB Q12H RF: 0 olopatadine [Patanol] 0.1 % Drops 1 drp OPHTHALMIC (EYE) Q8H PRN (Reason: itchy eyes) RF: 0 Toujeo SoloStar U-300 Insulin 300 unit/mL (1.5 mL) insulin pen 80 units SUBCUT BID RF: 0 calcium polycarbophil 625 mg Tablet 1,250 mg PO DAILY RF: 0 tizanidine 4 mg Tablet 4 mg PO BID PRN (Reason: Muscle Spasm) RF: 0 Glucerna Liquid 1 ea PO BID RF: 0 Ensure Clear Liquid 1 ea PO DAILY RF: 0 Discharge Orders: Discharge Order (Routine); Ordered 06/29/19 Ordered By: Chelsey Weiner/Other Patient Handouts: Esophagitis Admission Data Admit Date/Time: 06/28/19 08:49 Attending Provider: John Butcher Admit Provider: John Butcher Primary Care Provider: Abner Dunn Other Providers: Olivier Costello
[2019-06-29] MEDS ORDERED: Nursing to Pharmacy Communication ONE (10:30)
[2019-06-29] MEDS ORDERED: SUCRALFATE 1 GM/10 ML UDC PO SCH (16:30)
[2019-06-30] MEDS ORDERED: PANTOprazole 40 MG TAB PO SCH (09:00)
== END 2019-06-29 14:10 | disposition home or self-care (01) ==
LOC: 2S 03:00 → ED 03:00 → 2S 10:12

== ENCOUNTER 2019-07-27 12:58 | Inpatient (IN) ==
[2019-07-27 14:35] LABS: Hematocrit (blood only) 32.8 % (42-52); Hemoglobin 10.6 g/dL (14.0-18.0); Mean Corpuscular Hemoglobin 29.2 pg (25-34); Mean Corpuscular Hgb Conc 32.3 g/dL (32-36); Mean Corpuscular Volume 90.4 fL (80-100); RDW Coefficient of Variation 13.8 % (11.5-14.5); RDW Standard Deviation 45.4 fL (36.4-46.3); Red Blood Count 3.63 M/uL (4.7-6.1); White Blood Count 4.62 K/uL (4.8-10.8)
[2019-07-27] MEDS ORDERED: HEPARIN 100 UNIT/ML 5ML FLUSH ONE (14:35)
--- NOTE | 2019-07-27 14:35 | XRay Report ---
XR chest 1V portable CLINICAL HISTORY: Dyspnea COMPARISON STUDY: 06/28/2019 FINDINGS: The heart is mildly enlarged. There is a right-sided A-Port catheter present. There is no f ocal pulmonary consolidation. There is stable vascular prominence[there is mild upper lobe vascular p rominence suggesting pulmonary venous hypertension. There are no significant pleural effusions. IMPRESSION: Cardiomegaly and suspected pulmonary venous hypertension. No evidence of focal pulmonary consolidation Electronically signed by: Lucas Krishna M.D. 07/27/2019 2:34 PM
[2019-07-27 14:42] LABS: INR 1.1 (0.9-1.1); Partial Thromboplastin Ratio 1.2; Partial Thromboplastin Time 32.1 Seconds (21.0-31.0); Prothrombin Time 10.9 Seconds (9.0-12.0)
[2019-07-27] MEDS ORDERED: SEPTRA DS HOME PACK 1 EA VIAL PO ONE (14:44)
[2019-07-27 14:50] LABS: Alanine Aminotransferase 10 U/L (12-78); Albumin Level 3.1 gm/dl (3.4-5.0); Aspartate Aminotransferase 23 U/L (15-37); BUN Creatinine Ratio 14.3 (10-20); Blood Urea Nitrogen 15 mg/dl (7-18); Calcium 8.4 mg/dl (8.5-10.1); Carbon Dioxide 31 mmol/L (21-32); Chloride 104 mmol/L (98-107); Est GFR (African American) 87.1; Est GFR (Non-African American) 75.2; Glucose 117 mg/dl (70-99); Potassium 3.8 mmol/L (3.5-5.1); Sodium 141 mmol/L (136-145)
[2019-07-27 14:58] LABS: Albumin Globulin Ratio 0.8 (0.9-2); Alkaline Phosphatase 107 U/L (45-117); Bilirubin,Total 0.4 mg/dl (0.2-1); NT Pro B Type Natriuretic Pept 141 pg/ml (0-900); Total Protein 7.1 gm/dl (6.4-8.2); Troponin I 0.385 ng/ml (0-0.045)
[2019-07-27] MEDS ORDERED: ASPIRIN CHEW 324 MG PO STA (14:59)
[2019-07-27 15:00] LABS: Basophils # (auto) 0.01 K/uL (0-0.2); Basophils % (auto) 0.2 %; Eosinophils # (auto) 0.08 K/uL (0-0.5); Eosinophils % (auto) 1.7 %; Giant Platelets 1+; Immature Granulocytes # (auto) 0.01 K/uL (0.00-0.02); Immature Granulocytes % (auto) 0.2 %; Lymphocytes # (auto) 0.78 K/uL (1.2-3.4); Lymphocytes % (auto) 16.9 %; Mean Platelet Volume 9.7 fL (7.4-10.4); Monocytes # (auto) 0.26 K/uL (0.11-0.59); Monocytes % (auto) 5.6 %; Neutrophils # (auto) 3.48 K/uL (1.4-6.5); Neutrophils % (auto) 75.4 %; Platelet Count 79 K/uL (130-400); Platelet Estimate Decreased (Normal)
[2019-07-27] MEDS: NITROGLYCERIN 2% OINTMENT 30GM TUBE EXT SCH ×2 (15:21→21:36)
[2019-07-27] MEDS ORDERED: GI COCKTAIL ED USE PO ONE (15:30)
--- NOTE | 2019-07-27 16:44 | History & Physical Report ---
Date of Service July 27, 2019 Assessment & Plan (1) Chest pain: Trop elevated at 0.385--does not have prior hx of elevation, serials pending Cath 06/03 with 20%/40% blockage and no stents placed making ACS less likely, however pt states a similar patten in 2006 with an initially neg cath but repeat a few months later revealing blockage Will not order ECHO or stress testing given recent + stress testing Follows with Dr. English, c/s pending CBC, PRP, WNL CXR neg for acute EKG WNL Some thought about GERD/gastritis/hiatal hernia causing chest pain, however pt took many medications that should have helped with this during his severe episode this AM and GI cocktail was not helpful in ED today CP is reproducible, which could be seen with a large hiatal hernia causing sx. States he was recommended for fundoplasty, but feels this pain is cardiac and has declined Certainly could be a hypoventilation syndrome. Wears HS 3L via NC. Overnight pulse ox Lyme pending given syncopal episodes CTA 06/28 neg for PE, does have new LE swelling--LE US pending Hx of Agent Panora exposure could also lead to any miscellany of sx (2) CHF (congestive heart failure): continue home meds Additional lasix 20mg IV x1 (3) Hypertension: continue home meds (4) Parkinson disease: continue home meds (5) BPH (benign prostatic hyperplasia): continue home meds (6) Diabetes mellitus: Holding home SSI, victoza Continue other meds A1c pending SSI PRN (7) Chronic GERD: continue home meds (8) COPD (chronic obstructive pulmonary disease): continue home meds (9) DVT prophylaxis: SCDs, Heparin for DVT proph History of Present Illness Primary Care Provider: Abner Dunn MD 69 y/o M c/o chest pain. Pt has been having chest pain for the last several months. He states it started when he was using a chainsaw and has continued to worsen. It is substernal and moves into his L chest. He had a dobutamine stress test that was + this summer and this lead to a cath on 06/03. It was noted for a 20% and a 40% blockage, but no need for stents. Pt continued to have ongoing pain. It was thought that it was possibly GI in nature, so pt had an EGD on 07/22 that showed gastritis and a large hiatal hernia. It was thought that this was the cause of his chest pain and he was given several medications to address this. Despite compliance, pt has continued to have chest pain that is worsening. He has been taking lasix for about a year for LE swelling and despite ongoing use, he has had increased LE swelling and pain the last few days where prior the lasix had kept this under control. Last night, pt was watching an action movie when around 11p he started to have the most severe chest pain he has had. He states he was "really into the movie, it was like when I was in [place] almost." He took 1/2 bottle of mylanta, a 1/2 bottle of pepto, 2 glasses of baking soda without any help. He then took nitro x6, but his pain continued. He was SOB and sweaty and nauseated. This lasted until around 4a, when it did finally lessen. Pt's states that he had an episode of unresponsiveness around 1130a today. She states that this happens periodically. He will just start to stare while someone is talking to him and gradually slump over. He is not responsive for about 5-10 minutes. When he wakes up, he is confused. It was after this that they came to the ED. Pt has had decreased PO intake. He is hesitant to eat much due to recent GI dx. Pt wears HS O2 for COPD via NC. He had a sleep study several years ago that was WNL. He states he does not sleep well and wakes often. states he does not snore often, but that he is frequently restless. There is some sort of hx of seizures and pt was on medication at one time, however this made him confused and the dx was not certain, so this has been d/c'd for many years. Pt has a hx of NM with stents in 2006. He states that prior to the stents being placed, he had a "negative cath" initially. With ongoing sx another cath was done and this revealed the need for stenting. Pt was in [place] and has hx of Agent Panora exposure. At present, pt still has chest pain. When I push on his chest, he feels this makes the pain worse. He was given nitro and GI cocktail in the ED without change in pain. Pt denies fever, abd pain, v/c/d. Allergies Allergy/AdvReac Type Severity Reaction Status Date / Time Cipro Allergy Severe Anaphylaxis Verified 12/07/16 14:38 ciprofloxacin Allergy Severe Anaphylaxis Verified 07/27/19 13:59 metoclopramide Allergy Intermediate FROM DRS Verified 07/27/19 13:59 CHART budesonide [From Symbicort] Allergy Unknown FROM Verified 07/27/19 13:59 OFFICE CHART formoterol [From Symbicort] Allergy Unknown FROM Verified 07/27/19 13:59 OFFICE CHART felodipine AdvReac Mild Cough Verified 07/27/19 13:59 lisinopril AdvReac Mild Cough Verified 07/27/19 13:59 simvastatin AdvReac Mild Leg Verified 07/27/19 13:59 Cramping Home Medications Home Medications Medication Instructions Recorded Confirmed Type Restasis 1 drp OPB Q12H 09/05/18 07/27/19 History latanoprost 1 drp OPB HS 09/05/18 07/27/19 History ondansetron HCl 4 mg PO DIRECTED PRN 09/05/18 07/27/19 History furosemide 40 mg tablet 40 mg PO QAM #30 tab 04/16/19 07/27/19 Rx albuterol sulfate HFA 90 2 puff INHALATION Q4H PRN #1 ea 05/05/19 07/27/19 Rx mcg/actuation aerosol inhaler carbidopa 25 mg-levodopa 100 mg 1 tab PO QID #120 tab 05/05/19 07/27/19 Rx tablet finasteride 5 mg tablet 5 mg PO HS #30 tab 05/05/19 07/27/19 Rx insulin aspart U- 100 100 unit/mL See Rx Instructions SUBCUT 05/05/19 07/27/19 Rx subcutaneous solution DIRECTED #10 ml ipratropium-albuterol 0.5 mg-3 3 ml INHALATION QID PRN #90 ml 05/05/19 07/27/19 Rx mg(2.5 mg base)/3 mL nebulization soln metformin 1,000 mg tablet 1,000 mg PO BID #60 tab 05/05/19 07/27/19 Rx metoprolol tartrate 50 mg tablet 50 mg PO BID #60 tab 05/05/19 07/27/19 Rx verapamil ER (SR) 240 mg 240 mg PO HS #30 tab 05/05/19 07/27/19 Rx tablet,extended release Ensure Clear 1 ea PO BID 06/28/19 07/27/19 History Glucerna 1 ea PO BID 06/28/19 07/27/19 History Tounickolas FelizoStar U-300 Insulin 80 units SUBCUT BID 06/28/19 07/27/19 History calcium polycarbophil 1,250 mg PO QDL 06/28/19 07/27/19 History olopatadine [Patanol] 1 drp OPB Q8H PRN 06/28/19 07/27/19 History tizanidine 4 mg PO BID #0 tab 06/29/19 07/27/19 Rx sucralfate 1 gram tablet 1 gm PO QID tab 07/08/19 07/27/19 History benzonatate 100 mg capsule 100 mg PO BID PRN #30 cap 07/09/19 07/27/19 Rx pregabalin 50 mg capsule 50 mg PO BID #180 cap 07/09/19 07/27/19 Rx Oxygen Home #1 ea 07/11/19 07/27/19 History magnesium 400 mg (as magnesium 420 mg PO HS cap 07/11/19 07/27/19 History oxide) capsule nitroglycerin 0.4 mg sublingual 0.3 mg SL Q5M PRN tab 07/11/19 07/27/19 History tablet polyethylene glycol 3350 17 17 gm PO DAILY@0900 07/11/19 07/27/19 History gram/dose oral powder clopidogrel [Plavix] 75 mg PO QAM 07/17/19 07/27/19 History ezetimibe [Zetia] 10 mg PO QAM 07/17/19 07/27/19 History isosorbide mononitrate 60 mg PO QAM 07/17/19 07/27/19 History liraglutide 1.8 mg SUBCUT QDD 07/17/19 07/27/19 History loratadine [Claritin] 10 mg PO QAM 07/17/19 07/27/19 History losartan 50 mg PO QAM 07/17/19 07/27/19 History pantoprazole 40 mg PO QAM 07/17/19 07/27/19 History ropinirole 6 mg PO HS 07/17/19 07/27/19 History rosuvastatin [Crestor] 10 mg PO HS 07/17/19 07/27/19 History tamsulosin 0.4 mg PO HS 07/17/19 07/27/19 History ammonium lactate 1 applic TOPICAL TID PRN 07/27/19 07/27/19 History lanolin izffehu-to-p.pet-ceres 1 applic TOPICAL QID PRN 07/27/19 07/27/19 History [Eucerin] nystatin 1 applic TOPICAL TID PRN 07/27/19 07/27/19 History triamcinolone acetonide 1 applic DENTAL TID PRN 07/27/19 07/27/19 History Past Med/Surg History Medical History Anemia BPH (benign prostatic hyperplasia) Basal cell carcinoma of right upper arm removed in office COPD (chronic obstructive pulmonary disease) CVA (cerebral vascular accident) 04/2017--left side weakness---follows with Dr. Bruner Chronic back pain Diabetes mellitus, type 2 Diverticular disease Fatty liver Glaucoma HTN (hypertension) History of DVT of lower extremity x2--left leg--after abominal sx History of anesthesia reaction woke [place] during [place] [facility] [place] History of colon polyps History of pulmonary embolism 2006--after abdominal sx Kidney stones Myocardial Infarction 2006--heart cath--follows with Dr. English Neuropathy associated with endocrine disorder On anticoagulant therapy plavix daily On home oxygen therapy 3L N/C at all times Osteoarthritis Parkinson disease follow with Dr. Bruner Pulmonary embolism Seizure ? pt not sure if he really did have any in 2013--was on medication but no longer is on meds--follows with Dr. Bruner Wheelchair bound Surgical History H/O heart artery stent x1--2006 @ [facility] History of abdominoplasty History of bowel resection 2006 18 inches removed @ [facility] d/t diverticulitis History of colonoscopy History of endoscopic sinus surgery History of esophagogastroduodenoscopy (EGD) History of vascular access device Aport Right side History of wisdom tooth extraction S/P cardiac cath x5--2006 @ [place]/ 2010 [place] [facility] [place]/ last was 04/14/19 left [place] [facility] [place] post glaucoma surgery bilt eyes Family History Mother Coronary heart disease Family history of reaction to anesthesia wakes up during surgery Grandfather (Paternal) Myocardial infarction Grandmother (Paternal) Myocardial infarction Father Liver cancer Pancreatic cancer Colorectal cancer Sister Family history of reaction to anesthesia nausea/vomiting Social History Preferred Language: Lao Communication Ability: Effective Visual Impairment: Limited Hearing Ability: Use of Hearing Aid 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: No Beliefs That Will Affect Care: None marital status: Current Living Situation: Spouse Current Living Situation Comment: Lives at home with - wheelchair accessible current occupational status: retired Feels Safe at Home: Yes Smoking Status: Never smoker Tobacco Type: cigarettes ; Age Started Using Tobacco: 19 ; Age Quit Using Tobacco: 23 ; Second Hand Exposure: No ; Hx Alcohol Use: No (was an alcoholic quit 1971) Hx Substance Use: No Childhood Exposure to Second-Hand Smoke: No Other Diet Comment: Glucerna (2), chicken noodle soup caffeine: Yes Dental Care, Regularly: Yes Physical Activity Frequency: Does not Exercise Seatbelt Use: always Sunscreen Use: No Do you think of yourself as: straight/heterosexual Review of Systems Review of Systems: Pertinent positives and negatives reviewed in HPI--all others negative Physical Exam Constitutional: WD/WN, vitals as above Eyes: normal visual yu by confrontation and + anicteric sclerae Neck: normal visual inspection and trachea midline Respiratory: no respiratory distress Auscultation: lungs clear to auscultation bilaterally and + diminished lung sounds; no crackles and no wheezes Cardiovascular: Rate/Rhythm: regular rate and regular rhythm Gastrointestinal (Abdomen): Inspection/Auscultation: abdomen not distended Percussion/Palpation: abdomen soft; abdomen nontender Musculoskeletal: Head/Neck/Chest: normocephalic, head atraumatic and + chest tenderness b/l 1+ pitting LE edema, peripheral pulses intact Skin: no rashes, warm and dry Neurologic: awake; not confused Speech / Cognition: normal speech Psychiatric: A+Ox3, euthymic affect Results & Data Vital Signs (Past 12 Hours) Vital Signs Temp Pulse Pulse Resp BP BP Pulse Ox 07/27/19 16:00 84 31 H 214/111 H 98 10/13/19 15:30 73 23 182/107 H 96 07/27/19 15:03 74 25 H 161/89 H 98 07/27/19 14:59 75 20 161/89 H 99 07/27/19 13:17 98 07/27/19 13:02 36.7 C 83 22 134/76 95 Diagnostic Findings CXR: neg for acute ECG Additional Comments: NSR x2 Code Status & VTE Plan Code Status Full code, although pt states no prolonged mechanical life support, feeding tubes, etc VTE Prophylaxis Plan VTE Prophylaxis will be ordered: Yes PG Care Time/CCT Total # of Minutes Spent Total Time Spent with Patient: Total time spent is greater than 50% in coordination of care (as documented) at patient's floor/unit and/or counseling patient: (1) Chest pain Chest pain type: unspecified Qualified Code(s): R07.9 - Chest pain, unspecified (2) CHF (congestive heart failure) Heart failure chronicity: acute Heart failure type: unspecified Qualified Code(s): I50.9 - Heart failure, unspecified
[2019-07-27 17:06] LABS: Base Excess VBG 7.2 mEq/L; Oxygen Saturation VBG 76.2 %; pH VBG 7.44 (7.36-7.41)
--- NOTE | 2019-07-27 17:43 | Emergency Department Note ---
Entered by Dariela Strickland acting as a scribe for Matt Ridley DO History of Present Illness General Chief complaint: Swelling/Edema to Extremity Stated complaint: SWOLLEN [id number] PAIN-WAS UNRESPONSIVE Source: patient History of Present Illness Onset (ago): month(s) 5 Location: chest Severity: similar to prior episodes Pain Consistency: + other (waxing and waning ) Maximum Pain Intensity: 4 Quality: + aching and + other (chest pressure; shortness of breath ) Exacerbated By: + other (lying flat ) Associated symptoms: + confusion and + other (positive leg swelling; positive weight gain; positive episode of unresponsiveness) Treatments prior to arrival: other (Lasix) The patient is a 69 year old white male w/ PMHx of COPD, Diabetes, HTN, Parkinson disease, BPH, and GERD who presents to the ED w/ CC of waxing and waning chest pain and shortness of breath that began at the beginning of the , about 5 months prior to arrival. The patient reports that his symptoms resulted in a catheterization in May, two months ago and a endoscopy five days ago. The patient states that he began to have worsening swelling in his legs over the past week, and per the patient's , the patient has gained approximately eight pounds during this time. The patient states that he takes 40mg of Lasix daily, but has never been diagnosed with CHF. The patient states that his chest pain has worsened over the past four days that is exacerbated with lying flat. He reports that he had an episode of worsening chest pain, described as aching and pressure, that began last night, about 14 hours prior to arrival. The patient states that this is similar to his prior chest pain that led to his catheterization. Per the patient's , the patient had an episode of unresponsiveness just prior to arrival. The patient's states that the patient stopped appeared to be awake but was not responding before he was found slumped over on his chair. The patient's states that it took them about 5- 10 minutes to get the patient awake and alert again, and states that he was somewhat confused after waking up. Home Medications Home Medications Medication Instructions Recorded Confirmed Type Restasis 1 drp OPB Q12H 09/05/18 07/27/19 History latanoprost 1 drp OPB HS 09/05/18 07/27/19 History ondansetron HCl 4 mg PO DIRECTED PRN 09/05/18 07/27/19 History furosemide 40 mg tablet 40 mg PO QAM #30 tab 04/16/19 07/27/19 Rx albuterol sulfate HFA 90 2 puff INHALATION Q4H PRN #1 ea 05/05/19 07/27/19 Rx mcg/actuation aerosol inhaler carbidopa 25 mg-levodopa 100 mg 1 tab PO QID #120 tab 05/05/19 07/27/19 Rx tablet finasteride 5 mg tablet 5 mg PO HS #30 tab 05/05/19 07/27/19 Rx insulin aspart U- 100 100 unit/mL See Rx Instructions SUBCUT 05/05/19 07/27/19 Rx subcutaneous solution DIRECTED #10 ml ipratropium-albuterol 0.5 mg-3 3 ml INHALATION QID PRN #90 ml 05/05/19 07/27/19 Rx mg(2.5 mg base)/3 mL nebulization soln metformin 1,000 mg tablet 1,000 mg PO BID #60 tab 05/05/19 07/27/19 Rx metoprolol tartrate 50 mg tablet 50 mg PO BID #60 tab 05/05/19 07/27/19 Rx verapamil ER (SR) 240 mg 240 mg PO HS #30 tab 05/05/19 07/27/19 Rx tablet,extended release Ensure Clear 1 ea PO BID 06/28/19 07/27/19 History Glucerna 1 ea PO BID 06/28/19 07/27/19 History Toujeo SoloStar U-300 Insulin 80 units SUBCUT BID 06/28/19 07/27/19 History calcium polycarbophil 1,250 mg PO QDL 06/28/19 07/27/19 History olopatadine [Patanol] 1 drp OPB Q8H PRN 06/28/19 07/27/19 History tizanidine 4 mg PO BID #0 tab 06/29/19 07/27/19 Rx sucralfate 1 gram tablet 1 gm PO QID tab 07/08/19 07/27/19 History benzonatate 100 mg capsule 100 mg PO BID PRN #30 cap 07/09/19 07/27/19 Rx pregabalin 50 mg capsule 50 mg PO BID #180 cap 07/09/19 07/27/19 Rx Oxygen Home #1 ea 07/11/19 07/27/19 History magnesium 400 mg (as magnesium 420 mg PO HS cap 07/11/19 07/27/19 History oxide) capsule nitroglycerin 0.4 mg sublingual 0.3 mg SL Q5M PRN tab 07/11/19 07/27/19 History tablet polyethylene glycol 3350 17 17 gm PO DAILY@0900 07/11/19 07/27/19 History gram/dose oral powder clopidogrel [Plavix] 75 mg PO QAM 07/17/19 07/27/19 History ezetimibe [Zetia] 10 mg PO QAM 07/17/19 07/27/19 History isosorbide mononitrate 60 mg PO QAM 07/17/19 07/27/19 History liraglutide 1.8 mg SUBCUT QDD 07/17/19 07/27/19 History loratadine [Claritin] 10 mg PO QAM 07/17/19 07/27/19 History losartan 50 mg PO QAM 07/17/19 07/27/19 History pantoprazole 40 mg PO QAM 07/17/19 07/27/19 History ropinirole 6 mg PO HS 07/17/19 07/27/19 History rosuvastatin [Crestor] 10 mg PO HS 07/17/19 07/27/19 History tamsulosin 0.4 mg PO HS 07/17/19 07/27/19 History ammonium lactate 1 applic TOPICAL TID PRN 07/27/19 07/27/19 History lanolin ntxsmub-de-w.pet-ceres 1 applic TOPICAL QID PRN 07/27/19 07/27/19 History [Eucerin] nystatin 1 applic TOPICAL TID PRN 07/27/19 07/27/19 History triamcinolone acetonide 1 applic DENTAL TID PRN 07/27/19 07/27/19 History Allergies Allergy/AdvReac Type Severity Reaction Status Date / Time Cipro Allergy Severe Anaphylaxis Verified 12/07/16 14:38 ciprofloxacin Allergy Severe Anaphylaxis Verified 07/27/19 13:59 metoclopramide Allergy Intermediate FROM DRS Verified 07/27/19 13:59 CHART budesonide [From Symbicort] Allergy Unknown FROM Verified 07/27/19 13:59 OFFICE CHART formoterol [From Symbicort] Allergy Unknown FROM Verified 07/27/19 13:59 OFFICE CHART felodipine AdvReac Mild Cough Verified 07/27/19 13:59 lisinopril AdvReac Mild Cough Verified 07/27/19 13:59 simvastatin AdvReac Mild Leg Verified 07/27/19 13:59 Cramping Past Med/Surg History Medical History Anemia BPH (benign prostatic hyperplasia) Basal cell carcinoma of right upper arm removed in office COPD (chronic obstructive pulmonary disease) CVA (cerebral vascular accident) 04/2017--left side weakness---follows with Dr. Bruner Chronic back pain Diabetes mellitus, type 2 Diverticular disease Fatty liver Glaucoma HTN (hypertension) History of DVT of lower extremity x2--left leg--after abominal sx History of anesthesia reaction woke up during [place] [facility] [place] History of colon polyps History of pulmonary embolism 2006--after abdominal sx Kidney stones Myocardial Infarction 2006--heart cath--follows with Dr. English Neuropathy associated with endocrine disorder On anticoagulant therapy plavix daily On home oxygen therapy 3L N/C at all times Osteoarthritis Parkinson disease follow with Dr. Bruner Pulmonary embolism Seizure ? pt not sure if he really did have any in 2013--was on medication but no longer is on meds--follows with Dr. Bruner Wheelchair bound Surgical History H/O heart artery stent x1--2006 @ [facility] History of abdominoplasty History of bowel resection 2006 18 inches removed @ [facility] d/t diverticulitis History of colonoscopy History of endoscopic sinus surgery History of esophagogastroduodenoscopy (EGD) History of vascular access device Aport Right side History of wisdom tooth extraction S/P cardiac cath x5--2006 @ [place]/ 2010 @ [facility] [place]/ last was 04/14/19 left and coronary angiography @ [facility] [place] Status post glaucoma surgery bilt eyes Family History Mother Coronary heart disease Family history of reaction to anesthesia wakes up during surgery Grandfather (Paternal) Myocardial infarction Grandmother (Paternal) Myocardial infarction Father Liver cancer Pancreatic cancer Colorectal cancer Sister Family history of reaction to anesthesia nausea/vomiting Social History Preferred Language: French Communication Ability: Effective Visual Impairment: Limited Hearing Ability: Use of Hearing Aid [place] Required: No Beliefs That Will Affect Care: None marital status: Current Living Situation: Spouse Current Living Situation Comment: Lives at home with - wheelchair accessible current occupational status: retired Feels Safe at Home: Yes Smoking Status: Never smoker Tobacco Type: cigarettes ; Age Started Using Tobacco: 19 ; Age Quit Using Tobacco: 23 ; Second Hand Exposure: No ; Hx Alcohol Use: No (was an alcoholic quit 1971) Hx Substance Use: No Childhood Exposure to Second-Hand Smoke: No Other Diet Comment: Glucerna (2), chicken noodle soup caffeine: Yes Dental Care, Regularly: Yes Physical Activity Frequency: Does not Exercise Seatbelt Use: always Sunscreen Use: No Do you think of yourself as: straight/heterosexual Review of Systems See HPI for pertinent positives & negatives. and A total of 10 systems reviewed and were otherwise negative Physical Exam Vital Signs Vital Signs - 24 hr 07/27/19 13:02 07/27/19 13:17 07/27/19 14:59 Temperature 36.7 C Temperature Source Oral Sepsis Recent Fever Within 48 Hours No Sepsis New/Unexplained Change in Mental Status No Sepsis Action Taken by Nursing No Action Required Pulse Rate 83 Pulse Rate [Apical] 75 Pulse Rate from SpO2 Sensor Respiratory Rate 22 20 Respiratory Effort / Characteristics Non-Labored Respiratory Depth Normal Blood Pressure 134/76 Blood Pressure [Right Arm] 161/89 H Blood Pressure Mean 95 Blood Pressure Mean [Right Arm] 113 Pulse Oximetry 95 98 99 Oxygen Delivery Method Nasal Cannula Nasal Cannula Nasal Cannula Oxygen Flow Rate 3 3 3 07/27/19 15:03 07/27/19 15:30 07/27/19 16:00 Temperature Temperature Source Sepsis Recent Fever Within 48 Hours Sepsis New/Unexplained Change in Mental Status Sepsis Action Taken by Nursing Pulse Rate 74 73 84 Pulse Rate [Apical] Pulse Rate from SpO2 Sensor 73 77 84 Respiratory Rate 25 H 23 31 H Respiratory Effort / Characteristics Respiratory Depth Blood Pressure 161/89 H 182/107 H 214/111 H Blood Pressure [Right Arm] Blood Pressure Mean 113 132 145 Blood Pressure Mean [Right Arm] Pulse Oximetry 98 96 98 Oxygen Delivery Method Oxygen Flow Rate 10/13/19 16:30 07/27/19 17:00 Temperature Temperature Source Sepsis Recent Fever Within 48 Hours Sepsis New/Unexplained Change in Mental Status Sepsis Action Taken by Nursing Pulse Rate 77 82 Pulse Rate [Apical] Pulse Rate from SpO2 Sensor 78 82 Respiratory Rate 21 21 Respiratory Effort / Characteristics Respiratory Depth Blood Pressure 211/111 H 216/111 H Blood Pressure [Right Arm] Blood Pressure Mean 144 146 Blood Pressure Mean [Right Arm] Pulse Oximetry 96 97 Oxygen Delivery Method Oxygen Flow Rate GENERAL: Sitting up in bed, obese, on 3L nasal cannula, talking in full sentences, alert EYE EXAM: normal conjunctiva OROPHARYNX: no exudate, no erythema, lips, buccal mucosa, and tongue normal and mucous membranes are moist NECK: supple, no nuchal rigidity, no adenopathy, non-tender CHEST: Reproducible anterior chest wall pain. LUNGS: Coarse at the bilateral bases. Normal chest wall mechanics HEART: no murmurs, S1 normal and S2 normal ABDOMEN: abdomen soft, non-tender, normo-active bowel sounds, no masses, no yong ound or guarding. BACK: Back is symmetrical on inspection and there is no deformity, no midline tenderness, no CVA tenderness. SKIN: no rashes and no bruising UPPER EXTREMITIES: upper extremities are grossly normal. LOWER EXTREMITIES: Pitting edema bilaterally, calves equal bilaterally. NEURO EXAM: Normal sensorium, cranial nerves II-XII grossly intact, normal speech, no gross weakness of arms, no gross weakness of legs. Course ED COURSE: Vital signs were reviewed and showed to be hypertensive. The patients medical record was reviewed The above diagnostic studies were performed and reviewed. ED treatments and interventions as stated above. 1326: The patient was evaluated in room B6. A complete history and physical examination was performed. 1532: Upon reevaluation, the patient is resting comfortably. He reports no change in his symptoms with nitro paste. I discussed my findings with the patient and he understands and agrees with the treatment plan. Based on the patients age, coexisting illnesses, exam and lab findings the decision to treat as an inpatient was made. The patient remained stable while under my care. 1522: I discussed the case with Dr. Bettencourt[facility] Hospitalist who accepts the patient for further evaluation. Administered Medications Nitroglycerin (Nitro-Bid 2%) 2 inch EXT Q6H ANILA Stop: 08/26/19 15:14 Last Admin: 07/27/19 15:21 Dose: 2 inch Documented by: [id number] Discontinued Medications Al Hydrox/Mg Hydrox/Simethicone () 1 dose PO ONE ONE Stop: 07/27/19 15:31 Last Admin: 07/27/19 15:45 Dose: 1 dose Documented by: [id number] Aspirin (Aspirin) 324 mg PO NOW STA Stop: 07/27/19 15:00 Last Admin: 07/27/19 15:21 Dose: 324 mg Documented by: [id number] Heparin Sodium (Porcine) (Heparin Sod 100 Unit/Ml Flush) Confirm Administered Dose 5 ml .ROUTE .STK-MED ONE Stop: 07/27/19 14:36 Last Admin: 07/27/19 14:38 Dose: 5 ml Documented by: [id number] Trimethoprim/Sulfamethoxazole (Sulfameth/Trimeth Ds 800/160mg Home Pack) 1 homepack PO UD ONE Stop: 07/27/19 14:45 Last Admin: 07/27/19 14:55 Dose: Not Given Documented by: [id number] Medical Decision Making Differential Diagnosis Differential diagnoses includes but is not limited to acute coronary syndrome, myocardial infarction, pericarditis, pulmonary embolus, aortic dissection, pneumonia, pneumothorax, musculoskeletal, shingles, esophageal. Medical Records Attestation: I reviewed the patient's medical records. Home Medications Current Medication List: was personally reviewed by me Laboratory Data Attestation: I reviewed the patient's lab results. Result diagrams: 07/27/19 13:59 07/27/19 13:59 Lab Results 07/27/19 07/27/19 07/27/19 Range/Units 13:59 13:59 13:59 WBC 4.62 L (4.8-10.8) K/uL RBC 3.63 L (4.7-6.1) M/uL Hgb 10.6 L (14.0-18.0) g/dL Hct 32.8 L (42-52) % MCV 90.4 (80-100) fL MCH 29.2 (25-34) pg MCHC 32.3 (32-36) g/dL RDW Std Deviation 45.4 (36.4-46.3) fL RDW Coeff of Andres 13.8 (11.5-14.5) % Plt Count 79 L (130-400) K/uL MPV 9.7 (7.4-10.4) fL Immature Gran % (Auto) 0.2 % Neut % (Auto) 75.4 % Lymph % (Auto) 16.9 % Glades % (Auto) 5.6 % Eos % (Auto) 1.7 % Baso % (Auto) 0.2 % Immature Gran # (Auto) 0.01 (0.00-0.02) K/uL Neut # (Auto) 3.48 (1.4-6.5) K/uL Lymph # (Auto) 0.78 L (1.2-3.4) K/uL Glades # (Auto) 0.26 (0.11-0.59) K/uL Eos # (Auto) 0.08 (0-0.5) K/uL Baso # (Auto) 0.01 (0-0.2) K/uL Platelet Estimate Decreased L (Normal) Giant Platelets 1+ PT 10.9 (9.0-12.0) Seconds INR 1.1 (0.9-1.1) APTT 32.1 H (21.0-31.0) Seconds PTT Ratio 1.2 VBG pH (7.36-7.41) VBG pCO2 (38-50) mmHg VBG pO2 mmHg VBG HCO3 mmol/L VBG O2 Saturation % VBG Base Excess mEq/L Barometric Pressure mm/Hg Sodium 141 (136-145) mmol/L Potassium 3.8 (3.5-5.1) mmol/L Chloride 104 (98-107) mmol/L Carbon Dioxide 31 (21-32) mmol/L Anion Gap 6.0 (3-11) BUN 15 (7-18) mg/dl Creatinine 1.02 (0.6-1.4) mg/dl Est Cr Clr Drug Dosing Not Reportable Est GFR ( Amer) 87.1 Est GFR (Non-Af Amer) 75.2 BUN/Creatinine Ratio 14.3 (10-20) Glucose 117 H (70-99) mg/dl Calcium 8.4 L (8.5-10.1) mg/dl Total Bilirubin 0.4 (0.2-1) mg/dl AST 23 (15-37) U/L ALT 10 L (12-78) U/L Alkaline Phosphatase 107 (45-117) U/L Troponin I 0.385 H* (0-0.045) ng/ml NT-Pro-B Natriuret Pep 141 (0-900) pg/ml Total Protein 7.1 (6.4-8.2) gm/dl Albumin 3.1 L (3.4-5.0) gm/dl Globulin 4.0 (2.5-4.0) gm/dl Albumin/Globulin Ratio 0.8 L (0.9-2) 07/27/19 Range/Units 16:47 WBC (4.8-10.8) K/uL RBC (4.7-6.1) M/uL Hgb (14.0-18.0) g/dL Hct (42-52) % MCV (80-100) fL MCH (25-34) pg MCHC (32-36) g/dL RDW Std Deviation (36.4-46.3) fL RDW Coeff of Andres (11.5-14.5) % Plt Count (130-400) K/uL MPV (7.4-10.4) fL Immature Gran % (Auto) % Neut % (Auto) % Lymph % (Auto) % Glades % (Auto) % Eos % (Auto) % Baso % (Auto) % Immature Gran # (Auto) (0.00-0.02) K/uL Neut # (Auto) (1.4-6.5) K/uL Lymph # (Auto) (1.2-3.4) K/uL Glades # (Auto) (0.11-0.59) K/uL Eos # (Auto) (0-0.5) K/uL Baso # (Auto) (0-0.2) K/uL Platelet Estimate (Normal) Giant Platelets PT (9.0-12.0) Seconds INR (0.9-1.1) APTT (21.0-31.0) Seconds PTT Ratio VBG pH 7.44 H (7.36-7.41) VBG pCO2 49 (38-50) mmHg VBG pO2 40 mmHg VBG HCO3 33 mmol/L VBG O2 Saturation 76.2 % VBG Base Excess 7.2 mEq/L Barometric Pressure 731.3 mm/Hg Sodium (136-145) mmol/L Potassium (3.5-5.1) mmol/L Chloride (98-107) mmol/L Carbon Dioxide (21-32) mmol/L Anion Gap (3-11) BUN (7-18) mg/dl Creatinine (0.6-1.4) mg/dl Est Cr Clr Drug Dosing Est GFR ( Amer) Est GFR (Non-Af Amer) BUN/Creatinine Ratio (10-20) Glucose (70-99) mg/dl Calcium (8.5-10.1) mg/dl Total Bilirubin (0.2-1) mg/dl AST (15-37) U/L ALT (12-78) U/L Alkaline Phosphatase (45-117) U/L Troponin I (0-0.045) ng/ml NT-Pro-B Natriuret Pep (0-900) pg/ml Total Protein (6.4-8.2) gm/dl Albumin (3.4-5.0) gm/dl Globulin (2.5-4.0) gm/dl Albumin/Globulin Ratio (0.9-2) Imaging Data Radiologist's Impression: Radiology results as stated below per my review and the radiologist's interpretation: XR chest 1V portable CLINICAL HISTORY: Dyspnea COMPARISON STUDY: 06/28/2019 FINDINGS: The heart is mildly enlarged. There is a right-sided A-Port catheter present. There is no focal pulmonary consolidation. There is stable vascular prominence[there is mild upper lobe vascular prominence suggesting pulmonary venous hypertension. There are no significant pleural effusions. IMPRESSION: Cardiomegaly and suspected pulmonary venous hypertension. No evidence of focal pulmonary consolidation Electronically signed by: Lucas Krishna M.D. 07/27/2019 2:34 PM ECG Data Attestation: I personally reviewed and interpreted this ECG as follows: Indication: chest pain Rate (beats per minute): 78 Rhythm: sinus rhythm Findings: + other (poor baseline; normal axis; normal intervals) and + Q waves; no PVC Comparison ECG Date: from (06/29/19) Change: no significant change (TWI in aVL is old ) Additional Comments: REPEAT ECG: Sinus rhythm with a rate of 78. Normal axis. Nonspecific ST wave abnormality inferiorly. No PVCs. Normal intervals. Blood Pressure Blood Pressure Findings: Elevated blood pressure Blood Pressure Disposition: further management by hospitalist RONA Narrative Patient is a 69-year-old male who presents the ER for chest pain associated with shortness of breath with lying flat and swelling in his lower extremities. He has been having chest pain shortness of breath off and on since early summer. He had a catheterization at [facility] secondary to this in May. He did not receive any stents. He presents today due to the swelling in the lower extremities associated with shortness of breath lying flat worsening chest pain which is been present since last night. Chest pain is reproducible on exam. He is on 3 L nasal cannula chronically. Labs show no significant leukocytosis but a mild anemia. INR was unremarkable. VBG with a pH of 7.44. BMP was unremarkable. Troponin was detectable at 0.385. Do question if this is part of his CHF as he was given nitro and had no improvement in his chest pain but it resolved after a GI cocktail. Repeat EKG showed no changes. His chest pain was also reproducible on exam. This gentleman is extremely complicated. With his chest pain resolved held on a heparin drip at this time. Discussed with the spitalist and patient was admitted for further work-up. Patient family were updated bedside. Impression & Plan Non-ST elevation TX (NSTEMI), CHF (congestive heart failure), SOB (shortness of breath) Discharge Plan Visit Data Chief Complaint: Swelling/Edema to Extremity Stated Complaint: SWOLLEN [id number] PAIN-WAS UNRESPONSIVE ED Provider: Matt Ridley Discharge Problem: Non-ST elevation TX (NSTEMI), CHF (congestive heart failure), SOB (shortness of breath) Patient Disposition: Being Evaluated by Hospitalist Forms Stand Alone Forms: My [facility] Prescriptions Prescriptions: No Action benzonatate [Tessalon Perles] 100 mg capsule 100 mg PO BID PRN (Reason: cough) Qty: 30 RF: 0 pregabalin [Lyrica] 50 mg capsule 50 mg PO BID Qty: 180 RF: 1 furosemide 40 mg tablet 40 mg PO QAM Qty: 30 RF: 5 albuterol sulfate [Proventil HFA] 90 mcg/actuation HFA aerosol inhaler 2 puff Inhalation Q4H PRN (Reason: Shortness Of Breath Or Wheezing) Qty: 1 RF: 5 carbidopa-levodopa 25-100 mg tablet 1 tab PO QID Qty: 120 RF: 5 finasteride 5 mg tablet 5 mg PO HS Qty: 30 RF: 5 Novolog U-100 Insulin aspart 100 unit/mL solution See Rx Instructions SUBCUT DIRECTED Qty: 10 RF: 5 ipratropium-albuterol 0.5 mg-3 mg(2.5 mg base)/3 mL solution for nebulization 3 ml INHALATION QID PRN (Reason: Shortness Of Breath Or Wheezing) Qty: 90 RF: 5 metformin 1,000 mg tablet 1,000 mg PO BID Qty: 60 RF: 5 metoprolol tartrate 50 mg tablet 50 mg PO BID Qty: 60 RF: 5 verapamil 240 mg tablet extended release 240 mg PO HS Qty: 30 RF: 5 sucralfate [Carafate] 1 gram tablet 1 gm PO QID RF: 0 magnesium oxide 400 mg magnesium capsule 420 mg PO HS RF: 0 nitroglycerin 0.4 mg tablet, sublingual 0.3 mg SL Q5M PRN (Reason: chest pain x3 doses) RF: 0 polyethylene glycol 3350 17 gram/dose powder 17 gm PO DAILY@0900 RF: 0 Oxygen Home Liters Per Minute .ROUTE .MEDSUPPLY Qty: 1 RF: 0 latanoprost 0.005 % Drops 1 drp OPB HS RF: 0 ondansetron HCl 4 mg Tablet 4 mg PO DIRECTED PRN (Reason: Nausea) RF: 0 Restasis 0.05 % Dropperette 1 drp OPB Q12H RF: 0 olopatadine [Patanol] 0.1 % Drops 1 drp OPB Q8H PRN (Reason: itchy eyes) RF: 0 Toujeo SoloStar U-300 Insulin 300 unit/mL (1.5 mL) insulin pen 80 units SUBCUT BID RF: 0 calcium polycarbophil 625 mg Tablet 1,250 mg PO QDL RF: 0 Glucerna Liquid 1 ea PO BID RF: 0 Ensure Clear Liquid 1 ea PO BID RF: 0 tizanidine 4 mg Tablet 4 mg PO BID Qty: 0 RF: 0 losartan 50 mg tablet 50 mg PO QAM RF: 0 clopidogrel [Plavix] 75 mg tablet 75 mg PO QAM RF: 0 isosorbide mononitrate 60 mg tablet extended release 24 hr 60 mg PO QAM RF: 0 tamsulosin 0.4 mg capsule 0.4 mg PO HS RF: 0 pantoprazole 40 mg tablet,delayed release (DR/EC) 40 mg PO QAM RF: 0 loratadine [Claritin] 10 mg tablet 10 mg PO QAM RF: 0 ezetimibe [Zetia] 10 mg tablet 10 mg PO QAM RF: 0 rosuvastatin [Crestor] 10 mg tablet 10 mg PO HS RF: 0 ropinirole 6 mg tablet extended release 24 hr 6 mg PO HS RF: 0 liraglutide 0.6 mg/0.1 mL (18 mg/3 mL) pen injector 1.8 mg SUBCUT QDD RF: 0 triamcinolone acetonide 0.1 % Paste 1 applic DENTAL TID PRN (Reason: Dry Mouth) RF: 0 ammonium lactate 12 % cream 1 applic topical TID PRN (Reason: Skin Irritation) RF: 0 nystatin 100,000 unit/gram Powder 1 applic TOPICAL TID PRN (Reason: Skin Irritation) RF: 0 Eucerin Cream 1 applic TOPICAL QID PRN (Reason: Skin Irritation) RF: 0 Referrals Referrals: Abner Dunn MD [Primary Care Provider] - Discharge Problem: CHF (congestive heart failure) Qualifiers: Heart failure type: unspecified Heart failure chronicity: acute Qualified Cod e(s): I50.9 - Heart failure, unspecified The scribe's documentation has been prepared under my direction and personally reviewed by me in its entirety. I confirm that the note above accurately reflects all work, treatment, procedures, and medical decision making performed by me.
[2019-07-27] MEDS ORDERED: TRIAMCINOLONE ACET 0.1% ORABASE 5 GM TUBE MT PRN (18:26)
[2019-07-27] MEDS ORDERED: ONDANSETRON 4 MG TAB PO PRN (18:26)
[2019-07-27] MEDS ORDERED: ONDANSETRON INJ 2 MG/ML 2 ML VIAL IV PRN (18:26)
[2019-07-27] MEDS ORDERED: BENZONATATE 100 MG CAPSULE PO PRN (18:26)
[2019-07-27] MEDS ORDERED: NYSTATIN POWDER 15GM BTL EXT PRN (18:26)
[2019-07-27] MEDS ORDERED: EUCERIN CR 120 GM JAR TOP PRN (18:26)
[2019-07-27] MEDS ORDERED: AMMONIUM LACTATE 12% LOTION 225 GM BTL EXT PRN (18:26)
[2019-07-27] MEDS ORDERED: NITROGLYCERIN SL 0.4 MG/TAB TAB SL PRN ×2 (18:26)
[2019-07-27] MEDS ORDERED: CARBOHYDRATES FOR HYPOGLYCEMIA PO PRN (18:26)
[2019-07-27] MEDS ORDERED: GLUCAGON FOR INJ 1 MG VIAL SQ PRN (18:26)
[2019-07-27] MEDS ORDERED: GLUCOSE 10 TABS/TUBE PO PRN (18:26)
[2019-07-27] MEDS ORDERED: MAGNESIUM HYDROXIDE SUSP 30 ML UDC PO PRN (18:26)
[2019-07-27] MEDS ORDERED: ALUMINUM/MAGNESIUM SUSP 72 ML, LIDOCAINE HCL VISCOUS 2% 24 ML, BARCODE IDENTIFIER 1 EA PO PRN (18:26)
[2019-07-27] MEDS ORDERED: DEXTROSE 50% 50 ML SYRINGE IV PRN (18:26)
[2019-07-27] MEDS ORDERED: ALBUTEROL HFA 8 GM INHALER INH PRN (18:26)
[2019-07-27] MEDS ORDERED: ALBUT/IPRATROP 3MG/0.5MG NEB 3 ML VIAL INH PRN (18:26)
[2019-07-27] MEDS ORDERED: GLUCOSE 40% GEL 15 GM TUBE PO PRN (18:26)
[2019-07-27] MEDS: INSULIN ASPART 100 UNITS/ML 3 ML PEN SC SCH ×2 (19:18→21:31)
[2019-07-27] MEDS ORDERED: FUROSEMIDE 20 MG in SYRINGE 0 ML IV ONE (19:30)
[2019-07-27 20:04] LABS: Lyme Ab IgG w/WB Rflx Negative (Negative); Lyme Ab IgM w/WB Rflx Negative (Negative)
[2019-07-27] MEDS: CARBIDOPA/LEVODOPA 25/100MG TAB PO SCH ×2 (20:22→21:36)
[2019-07-27] MEDS: VERAPAMIL HCL 240 MG TABCR PO SCH (20:24)
[2019-07-27] MEDS: SUCRALFATE 1 GM TAB PO SCH (20:24)
[2019-07-27] MEDS: ROSUVASTATIN CALCIUM 10 MG TAB PO SCH (20:25)
[2019-07-27] MEDS: TAMSULOSIN HCL 0.4 MG CAP PO SCH (20:25)
[2019-07-27] MEDS: METOPROLOL TARTRATE 50 MG TAB PO SCH (20:25)
[2019-07-27] MEDS: MAGNESIUM OXIDE 400 MG TAB PO SCH (20:26)
[2019-07-27] MEDS: ROPINIROLE HCL 1 MG TABLET PO SCH (20:26)
[2019-07-27] MEDS: TIZANIDINE HCL 4 MG TABLET PO SCH (20:27)
[2019-07-27] MEDS: FINASTERIDE 5 MG TAB PO SCH (20:27)
[2019-07-27] MEDS: LATANOPROST 0.005% OP SOLN 2.5 ML BTL OPB SCH (20:27)
[2019-07-27] MEDS ORDERED: FOOD SUPPLEMT LACTOSE REDUCED PO SCH (21:00)
[2019-07-27] MEDS ORDERED: INSULIN GLARGINE 100 UNIT/ML VIAL SC ONE (21:00)
[2019-07-27] MEDS ORDERED: NUT TX GLUC INTOL LAC FREE SOY PO SCH (21:00)
[2019-07-27] MEDS: PREGABALIN 50 MG CAP PO SCH (21:27)
[2019-07-27] MEDS: HEPARIN SOD 5,000 UNIT/0.5 ML VIAL SQ SCH (21:31)
[2019-07-28] MEDS ORDERED: HEPARIN 100 UNIT/ML 5ML FLUSH FLUSH PRN (00:49)
[2019-07-28] MEDS: NITROGLYCERIN 2% OINTMENT 30GM TUBE EXT SCH ×3 (03:44→16:03)
[2019-07-28] MEDS: ACETAMINOPHEN 325 MG TAB PO PRN (03:47)
[2019-07-28] MEDS: HEPARIN SOD 5,000 UNIT/0.5 ML VIAL SQ SCH ×3 (05:41→21:16)
--- NOTE | 2019-07-28 06:43 | Ultrasound Report ---
BILATERAL LOWER EXTREMITY VENOUS DOPPLER CLINICAL HISTORY: b/l LE swelling and pain COMPARISON STUDY: Bilateral lower extremity venous Doppler ultrasound September 05, 2018. TECHNIQUE: Sonography of the deep venous system of the bilateral lower extremities was performed. Co mpression and augmentation were evaluated. FINDINGS: This exam was technically difficult. The bilateral common femoral, superficial femoral and popliteal veins were compressible. Augmentation was normal. Flow was shown within the deep calf vesse ls. IMPRESSION: Technically difficult exam but no evidence of deep venous thrombus within the bilateral lower extremi ties. Electronically signed by: Osmin Norman M.D. 07/28/2019 6:42 AM
[2019-07-28 07:37] LABS: Hematocrit (blood only) 34.1 % (42-52); Hemoglobin 11.2 g/dL (14.0-18.0); Mean Corpuscular Hemoglobin 29.4 pg (25-34); Mean Corpuscular Hgb Conc 32.8 g/dL (32-36); Mean Corpuscular Volume 89.5 fL (80-100); RDW Coefficient of Variation 13.9 % (11.5-14.5); RDW Standard Deviation 45.5 fL (36.4-46.3); Red Blood Count 3.81 M/uL (4.7-6.1); White Blood Count 5.56 K/uL (4.8-10.8)
[2019-07-28 07:39] LABS: Mean Platelet Volume 8.9 fL (7.4-10.4); Platelet Count 75 K/uL (130-400)
[2019-07-28 07:57] LABS: Estimated Average Glucose 137 mg/dl; Hemoglobin A1C 6.4 % (4.5-5.6)
[2019-07-28 08:01] LABS: Basophils # (auto) 0.01 K/uL (0-0.2); Basophils % (auto) 0.2 %; Eosinophils # (auto) 0.12 K/uL (0-0.5); Eosinophils % (auto) 2.2 %; Lymphocytes # (auto) 0.87 K/uL (1.2-3.4); Lymphocytes % (auto) 15.6 %; Monocytes # (auto) 0.38 K/uL (0.11-0.59); Monocytes % (auto) 6.8 %; Neutrophils # (auto) 4.18 K/uL (1.4-6.5); Neutrophils % (auto) 75.2 %
[2019-07-28 08:05] LABS: BUN Creatinine Ratio 14.4 (10-20); Creatinine Clr Calc Pharmacy 96.7 ml/min; Est GFR (African American) 88.2; Est GFR (Non-African American) 76.1
[2019-07-28] MEDS ORDERED: LOSARTAN POTASSIUM 50 MG TAB PO SCH (09:00)
[2019-07-28] MEDS: CARBIDOPA/LEVODOPA 25/100MG TAB PO SCH ×4 (09:04→21:14)
[2019-07-28] MEDS: PANTOprazole 40 MG TAB PO SCH (09:04)
[2019-07-28] MEDS: POLYETHYLENE (MIRALAX) 17 GM PACK PO SCH (09:04)
[2019-07-28] MEDS: CLOPIDOGREL BISULFATE 75 MG TAB PO SCH (09:04)
[2019-07-28] MEDS: METFORMIN HCL 500 MG TAB PO SCH ×2 (09:04→18:21)
[2019-07-28] MEDS: TIZANIDINE HCL 4 MG TABLET PO SCH ×2 (09:04→21:16)
[2019-07-28] MEDS: EZETIMIBE 10 MG TABLET PO SCH (09:04)
[2019-07-28] MEDS: METOPROLOL TARTRATE 50 MG TAB PO SCH ×2 (09:05→21:13)
[2019-07-28] MEDS: FUROSEMIDE 40 MG TAB PO SCH (09:05)
[2019-07-28] MEDS: SUCRALFATE 1 GM TAB PO SCH ×4 (09:05→21:10)
[2019-07-28] MEDS: INSULIN ASPART 100 UNITS/ML 3 ML PEN SC SCH ×4 (09:05→20:56)
[2019-07-28] MEDS: LORATADINE 10 MG TAB PO SCH (09:05)
[2019-07-28] MEDS: INSULIN GLARGINE 100 UNIT/ML VIAL SC SCH ×2 (09:06→20:54)
[2019-07-28] MEDS: PREGABALIN 50 MG CAP PO SCH ×2 (09:10→21:18)
[2019-07-28] MEDS: RESTASIS: ORDER AWAITING ACTION SCH ×3 (09:16→18:19)
--- NOTE | 2019-07-28 09:31 | Cardiology Consultation ---
Date of Consultation July 28, 2019 Assessment & Plan (1) Chest pain: Present on Admission?: Yes (2) Hypertension: (3) LVH (left ventricular hypertrophy): Mr. Larose is a 69-year-old morbidly obese male with a history of CAD s/p LAD Stent, Hypertension, Dyslipidemia, CVA, Type 2 Diabetes Mellitus, Chronic Kidney Disease, Parkinsonism, and COPD who was admitted to [facility] on 07/27/2019 after experiencing Chest Pain that started at approximately 2300 on 07/26/2019 and lasted for a total of 5 to 6 hours. The Chest Pain radiated to his Back and Left Arm and he had associated Diaphoresis and Nausea. Because of his history of a hiatal hernia -- he thought that the pain may have been coming from that -- so he took Mylanta, Pepto-Bismol, and drank 2 glasses of baking soda mixed with water. All these medicines did not have any impact on his symptoms. 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 His symptoms returned yesterday -- so he came to the ER and was admitted. His initial Troponin I was elevated at 0.385 ng/ml and has trended down to 0.216 ng/ml. His EKGs so far show sinus rhythm and has no changes compared with Mid June 2019 tracing. Patient underwent a dobutamine stress echocardiogram today which showed no evidence of myocardial ischemia, and normal baseline LV systolic function and wall motion. Suspect that his elevated troponin level is related to uncontrolled blood pressure in the presence of LVH which is a setup for myocardial O2 supply-demand mismatch. Additionally the patient underwent a Cardiac Catheterization 04/14/2019 which showed only a 40% mid LCx stenosis and a 20% in-stent stenosis in the Proximal LAD stent. Patient also has a component musculoskeletal which is directly reproducible palpation. We recommend the followin. Continue Plavix 75 mg daily. 2. Continue Lopressor 50 mg b.i.d.. 3. Increase Losartan to 50 mg b.i.d.. 4. Continue Rosuvastatin 10 mg daily. 5. Continue Verapamil ER 240 mg daily. 6. Continue Lasix 40 mg daily. 7. Continue Mag-Ox 400 mg b.i.d.. 8. Continue Potassium Chloride 10 mEq b.i.d.. 9. Restart Imdur 60 mg daily -- we can titrate as an outpatient if recurrent symptoms. 10. Continue Protonix and Carafate. 11. Continue aggressive management of underlying diabetes mellitus. 12. Progress activities as tolerated. Patient is stable from a cardiac standpoint for discharge to home. Recommend follow up Cardiology in the next 1-2 weeks to re-evaluate blood pressure control, and to titrate medications if indicated. Present on Admission?: Yes Supervising Physician Co-Signing Physician Notes Shaquille Marquis MD History of Present Illness Reason for Consultation: -- Chest Pain, Elevated Troponin I. -- CAD s/p LAD Stent. Requesting Physician: Kevin Ambrose MD Attending Physician: Shaquille Marquis MD History of Present Illness Mr. Larose is a 69-year-old morbidly obese male with a history of CAD s/p LAD Stent, Hypertension, Dyslipidemia, CVA, Type 2 Diabetes Mellitus, Chronic Kidney Disease, Parkinsonism, and COPD who was admitted to [facility] on 07/27/2019 after experiencing Chest Pain that started at approximately 2300 on 07/26/2019 and lasted for a total of 5 to 6 hours. The Chest Pain radiated to his Back and Left Arm and he had associated Diaphoresis and Nausea. Because of his history of a hiatal hernia -- he thought that the pain may have been coming from that -- so he took Mylanta, Pepto-Bismol, and drank 2 glasses of baking soda mixed with water. All these medicines did not have any impact on his symptoms. 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 His symptoms returned yesterday -- so he came to the ER for further evaluation. His initial Troponin I was elevated at 0.385 ng/ml and has trended down to 0.216 ng/ml. His EKGs so far show sinus rhythm and has no changes compared with Mid June 2019 tracing. He states that he still having some chest pain currently which is reproducible with direct palpation -- and he denies any associated symptoms. Patient remains hypertensive. HISTORICAL BACKGROUND: Patient's cardiac history began in 2006 when he presented with an acute WI and underwent Cardiac Catheterization with stenting of his LAD at [facility]. He then presented to the ED at [facility] in December 2010 with chest pain. He was transferred to [facility] where he underwent repeat Cardiac Catheterization which showed no significant angiographic disease of his coronary arteries. His previous LAD stent was patent. His LV gram at that time demonstrated an LVEF = 60% and there were no wall motion abnormalities. Echocardiogram 08/25/13 demonstrated normal LV size, wall motion, and systolic function, LVEF 58%. No significant valvular disease was noted at that time. Patient again had complaints of chest discomfort in Cardiology Clinic May 2016. Nuclear scan revealed ? Inferoseptal WI and ? small amount of cristian-infarct ischemia. LVEF = 49%. Admission to [facility] August 30, 2016 with atypical chest pain. The discomfort occurred at rest. Cardiac enzymes were negative for myocardial injury. His EKG revealed no diagnostic changes of ischemia. He underwent a DSE on August 31, 2016. Negative for evidence of myocardial ischemia at 92% MPHR. No regional wall motion abnormalities. Type 1 LV diastolic dysfunction. Mild to moderate RV dilatation with intact systolic function. No significant valvular abnormalities. LVEF = 60% to 65%. No anginal symptoms during dobutamine stress. Maximum heart rate 144 bpm (92% MPHR). Patient had continued intermittent chest pain and underwent a Cardiac Catheterization in April 14, 2019 which showed only a 40% mid LCx stenosis and a 20% in-stent stenosis in the Proximal LAD stent. Patient was seen by Dr. English on 04/19/2017 for routine Cardiologic follow-up. During that visit the patient complained of lethargy, worsened left-sided weakness, and left facial paresthesias over the preceding 2 days. EMS was summoned, and patient transported to the hospital. He was diagnosed with a recurrent CVA. He was subsequently transferred to [facility] in [place]. He continues to have left sided weakness. I saw the patient on 07/08/2019 and he complained that over the preceding several months -- patient had been struggling with chest discomfort. On 07/07/2019 he had a typical episode of his chest discomfort which involved precordial pain radiating to his back with an element of dyspnea and perhaps a very mild pleuritic type pain. This occurred very early in the morning when he was not being physically active. The chest discomfort did not improve with changes in position or use of [place]. He subsequently used sublingual nitroglycerin with only minor improvement in his symptoms. In addition to the chest discomfort the patient noted significant diaphoresis. He stated that he had been having symptoms of this nature for several months. In general -- he was having an episode every couple of days. Because of these symptoms and based on his concern regarding heart attack he contacted EMS and was transported to our facility. In route the patient was administered additional doses of nitroglycerin without significant resolution. At the emergency room he was administer narcotics with some improvement in his symptoms but no actual complete resolution. In fact, the patient continued to have chest discomfort for hours. His cardiac workup was unremarkable. EKG showed no acute changes, cardiac enzymes remain negative, and echocardiogram showed no evidence wall m otion abnormalities. A CT scan the chest did however suggest an Esophagitis -- and patient was subsequently started on a proton pump inhibitor and Carafate. Allergies Allergy/AdvReac Type Severity Reaction Status Date / Time Cipro Allergy Severe Anaphylaxis Verified 12/07/16 14:38 ciprofloxacin Allergy Severe Anaphylaxis Verified 07/27/19 13:59 metoclopramide Allergy Intermediate FROM DRS Verified 07/27/19 13:59 CHART budesonide [From Symbicort] Allergy Unknown FROM Verified 07/27/19 13:59 OFFICE CHART formoterol [From Symbicort] Allergy Unknown FROM Verified 07/27/19 13:59 OFFICE CHART felodipine AdvReac Mild Cough Verified 07/27/19 13:59 lisinopril AdvReac Mild Cough Verified 07/27/19 13:59 simvastatin AdvReac Mild Leg Verified 07/27/19 13:59 Cramping Home Medications Home Medications Medication Instructions Recorded Confirmed Type Restasis 1 drp OPB Q12H 09/05/18 07/27/19 History latanoprost 1 drp OPB HS 09/05/18 07/27/19 History ondansetron HCl 4 mg PO DIRECTED PRN 09/05/18 07/27/19 History furosemide 40 mg tablet 40 mg PO QAM #30 tab 04/16/19 07/27/19 Rx albuterol sulfate HFA 90 2 puff INHALATION Q4H PRN #1 ea 05/05/19 07/27/19 Rx mcg/actuation aerosol inhaler carbidopa 25 mg-levodopa 100 mg 1 tab PO QID #120 tab 05/05/19 07/27/19 Rx tablet finasteride 5 mg tablet 5 mg PO HS #30 tab 05/05/19 07/27/19 Rx insulin aspart U- 100 100 unit/mL See Rx Instructions SUBCUT 05/05/19 07/27/19 Rx subcutaneous solution DIRECTED #10 ml ipratropium-albuterol 0.5 mg-3 3 ml INHALATION QID PRN #90 ml 05/05/19 07/27/19 Rx mg(2.5 mg base)/3 mL nebulization soln metformin 1,000 mg tablet 1,000 mg PO BID #60 tab 05/05/19 07/27/19 Rx metoprolol tartrate 50 mg tablet 50 mg PO BID #60 tab 05/05/19 07/27/19 Rx verapamil ER (SR) 240 mg 240 mg PO HS #30 tab 05/05/19 07/27/19 Rx tablet,extended release Ensure Clear 1 ea PO BID 06/28/19 07/27/19 History Glucerna 1 ea PO BID 06/28/19 07/27/19 History Toujeo SoloStar U-300 Insulin 80 units SUBCUT BID 06/28/19 07/27/19 History calcium polycarbophil 1,250 mg PO QDL 06/28/19 07/27/19 History olopatadine [Patanol] 1 drp OPB Q8H PRN 06/28/19 07/27/19 History tizanidine 4 mg PO BID #0 tab 06/29/19 07/27/19 Rx sucralfate 1 gram tablet 1 gm PO QID tab 07/08/19 07/27/19 History benzonatate 100 mg capsule 100 mg PO BID PRN #30 cap 07/09/19 07/27/19 Rx pregabalin 50 mg capsule 50 mg PO BID #180 cap 07/09/19 07/27/19 Rx Oxygen Home #1 ea 07/11/19 07/27/19 History magnesium 400 mg (as magnesium 420 mg PO HS cap 07/11/19 07/27/19 History oxide) capsule nitroglycerin 0.4 mg sublingual 0.3 mg SL Q5M PRN tab 07/11/19 07/27/19 History tablet polyethylene glycol 3350 17 17 gm PO DAILY@0900 07/11/19 07/27/19 History gram/dose oral powder clopidogrel [Plavix] 75 mg PO QAM 07/17/19 07/27/19 History ezetimibe [Zetia] 10 mg PO QAM 07/17/19 07/27/19 History isosorbide mononitrate 60 mg PO QAM 07/17/19 07/27/19 History liraglutide 1.8 mg SUBCUT QDD 07/17/19 07/27/19 History loratadine [Claritin] 10 mg PO QAM 07/17/19 07/27/19 History losartan 50 mg PO QAM 07/17/19 07/27/19 History pantoprazole 40 mg PO QAM 07/17/19 07/27/19 History ropinirole 6 mg PO HS 07/17/19 07/27/19 History rosuvastatin [Crestor] 10 mg PO HS 07/17/19 07/27/19 History tamsulosin 0.4 mg PO HS 07/17/19 07/27/19 History ammonium lactate 1 applic TOPICAL TID PRN 07/27/19 07/27/19 History lanolin dyamubp-mj-f.pet-ceres 1 applic TOPICAL QID PRN 07/27/19 07/27/19 History [Eucerin] nystatin 1 applic TOPICAL TID PRN 07/27/19 07/27/19 History triamcinolone acetonide 1 applic DENTAL TID PRN 07/27/19 07/27/19 History Patient History Medical History Anemia BPH (benign prostatic hyperplasia) Basal cell carcinoma of right upper arm removed in office COPD (chronic obstructive pulmonary disease) CVA (cerebral vascular accident) 04/2017--left side weakness---follows with Dr. Bruner Chronic back pain Diabetes mellitus, type 2 Diverticular disease Fatty liver Glaucoma HTN (hypertension) History of DVT of lower extremity x2--left leg--after abominal sx History of anesthesia reaction woke up during abdominoplasty @ [facility] [place] after 2010 History of colon polyps History of pulmonary embolism 2006--after abdominal sx Kidney stones Myocardial Infarction 2006--heart cath--follows with Dr. English Neuropathy associated with endocrine disorder On anticoagulant therapy plavix daily On home oxygen therapy 3L N/C at all times Osteoarthritis Parkinson disease follow with Dr. Bruner Pulmonary embolism Seizure ? pt not sure if he really did have any in 2013--was on medication but no longer is on meds--follows with Dr. Bruner Wheelchair bound Surgical History H/O heart artery stent x1--2006 @ [facility] History of abdominoplasty History of bowel resection 2006 18 inches removed @ [facility] d/t diverticulitis History of colonoscopy History of endoscopic sinus surgery History of esophagogastroduodenoscopy (EGD) History of vascular access device Aport Right side History of wisdom tooth extraction S/P cardiac cath x5--2006 @ [place]/ 2010 @ [facility] [place]/ last was 04/14/19 left and coronary angiography @ [facility] [place] Status post glaucoma surgery bilt eyes Family History Mother Coronary heart disease Family history of reaction to anesthesia wakes up during surgery Grandfather (Paternal) Myocardial infarction Grandmother (Paternal) Myocardial infarction Father Liver cancer Pancreatic cancer Colorectal cancer Sister Family history of reaction to anesthesia nausea/vomiting Social History Preferred Language: Kyrgyz Communication Ability: Effective Visual Impairment: Limited Hearing Ability: Use of Hearing Aid Superintendent Communications Required: No Beliefs That Will Affect Care: None marital status: Current Living Situation: Spouse Current Living Situation Comment: Lives at home with - wheelchair accessible current occupational status: retired Feels Safe at Home: No Is there a partner from a previous relationship who is making you feel unsafe now?: No Smoking Status: Former smoker Tobacco Type: cigarettes ; Age Started Using Tobacco: 19 ; Age Quit Using Tobacco: 23 ; Second Hand Exposure: No ; Hx Alcohol Use: No Hx Substance Use: No Childhood Exposure to Second-Hand Smoke: No Other Diet Comment: Glucerna (2), chicken noodle soup caffeine: Yes Dental Care, Regularly: Yes Physical Activity Frequency: Does not Exercise Seatbelt Use: always Sunscreen Use: No Do you think of yourself as: straight/heterosexual Physical Exam Physical Exam: GENERAL: Patient in no acute distress. HEENT: Head is atraumatic, normocephalic. EOM's intact. Facies symmetric. No perioral cyanosis. NECK: No JVD. JVP is at the level of the clavicle sitting upright. Carotid upstrokes are + 2 bilaterally. No bruits are noted. CHEST/LUNGS: Clear to auscultation throughout all lung yu. No wheezes, rales, or crackles. CVS: S1 and S2 are regular without murmurs, gallops, or rubs. PMI is nondisplaced. No lifts, heaves, or thrills. No abdominal aortic or renal bruits. Anterior chest wall is diffusely tender to palpation. ABDOMINAL EXAM: Bowel sounds are present. No masses, organomegaly, or tenderness. EXTREMITIES: No clubbing or cyanosis. Trace pretibial edema bilaterally. Intact radial pulses bilaterally. NEUROLOGIC EXAM: Patient is awake, alert, and oriented. Pleasant and cooperative. Answers questions appropriately. Speech is clear. Gait pattern was not assessed. DOBUTAMINE STRESS ECHOCARDIOGRAM 07/28/2019: -- No evidence of myocardial ischemia. -- LVH was present. -- No wall motion abnormalities at baseline. -- Normal LV systolic function. Results & Data Vital Signs (Past 12 Hours) Vital Signs Temp Pulse Pulse Resp BP BP Pulse Ox 07/28/19 07:59 36.6 C 78 20 169/93 H 97 07/28/19 03:49 36.5 C 83 22 151/73 H 95 07/28/19 00:51 76 07/27/19 23:03 36.6 C 83 18 153/73 H 97 07/27/19 21:45 89 Pulse Ox 07/28/19 07:59 07/28/19 03:49 07/28/19 00:51 96 07/27/19 23:03 07/27/19 21:45 97 Laboratory Results Laboratory Results - last 24 hr 07/27/19 07/27/19 07/27/19 13:59 13:59 13:59 WBC 4.62 L RBC 3.63 L Hgb 10.6 L Hct 32.8 L MCV 90.4 MCH 29.2 MCHC 32.3 RDW Std Deviation 45.4 RDW Coeff of Andres 13.8 Plt Count 79 L MPV 9.7 Immature Gran % (Auto) 0.2 Neut % (Auto) 75.4 Lymph % (Auto) 16.9 Bay % (Auto) 5.6 Eos % (Auto) 1.7 Baso % (Auto) 0.2 Immature Gran # (Auto) 0.01 Neut # (Auto) 3.48 Lymph # (Auto) 0.78 L Bay # (Auto) 0.26 Eos # (Auto) 0.08 Baso # (Auto) 0.01 Platelet Estimate Decreased L Giant Platelets 1+ PT 10.9 INR 1.1 APTT 32.1 H PTT Ratio 1.2 VBG pH VBG pCO2 VBG pO2 VBG HCO3 VBG O2 Saturation VBG Base Excess Barometric Pressure Sodium 141 Potassium 3.8 Chloride 104 Carbon Dioxide 31 Anion Gap 6.0 BUN 15 Creatinine 1.02 Est Cr Clr Drug Dosing Not Reportable Est GFR ( Amer) 87.1 Est GFR (Non-Af Amer) 75.2 BUN/Creatinine Ratio 14.3 Glucose 117 H POC Glucose Estimat Average Glucose Hemoglobin A1c Calcium 8.4 L Total Bilirubin 0.4 AST 23 ALT 10 L Alkaline Phosphatase 107 Troponin I 0.385 H* NT-Pro-B Natriuret Pep 141 Total Protein 7.1 Albumin 3.1 L Globulin 4.0 Albumin/Globulin Ratio 0.8 L Lyme Disease IgG Ab Lyme Disease IgM Ab 07/27/19 07/27/19 07/27/19 16:47 18:10 18:49 WBC RBC Hgb Hct MCV MCH MCHC RDW Std Deviation RDW Coeff of Andres Plt Count MPV Immature Gran % (Auto) Neut % (Auto) Lymph % (Auto) Bay % (Auto) Eos % (Auto) Baso % (Auto) Immature Gran # (Auto) Neut # (Auto) Lymph # (Auto) Bay # (Auto) Eos # (Auto) Baso # (Auto) Platelet Estimate Giant Platelets PT INR APTT PTT Ratio VBG pH 7.44 H VBG pCO2 49 VBG pO2 40 VBG HCO3 33 VBG O2 Saturation 76.2 VBG Base Excess 7.2 Barometric Pressure 731.3 Sodium Potassium Chloride Carbon Dioxide Anion Gap BUN Creatinine Est Cr Clr Drug Dosing Est GFR ( Amer) Est GFR (Non-Af Amer) BUN/Creatinine Ratio Glucose POC Glucose 76 Estimat Average Glucose Hemoglobin A1c Calcium Total Bilirubin AST ALT Alkaline Phosphatase Troponin I NT-Pro-B Natriuret Pep Total Protein Albumin Globulin Albumin/Globulin Ratio Lyme Disease IgG Ab Negative Lyme Disease IgM Ab Negative 10/13/19 10/13/19 10/14/19 18:49 20:35 00:55 WBC RBC Hgb Hct MCV MCH MCHC RDW Std Deviation RDW Coeff of Andres Plt Count MPV Immature Gran % (Auto) Neut % (Auto) Lymph % (Auto) Bay % (Auto) Eos % (Auto) Baso % (Auto) Immature Gran # (Auto) Neut # (Auto) Lymph # (Auto) Bay # (Auto) Eos # (Auto) Baso # (Auto) Platelet Estimate Giant Platelets PT INR APTT PTT Ratio VBG pH VBG pCO2 VBG pO2 VBG HCO3 VBG O2 Saturation VBG Base Excess Barometric Pressure Sodium Potassium Chloride Carbon Dioxide Anion Gap BUN Creatinine Est Cr Clr Drug Dosing Est GFR ( Amer) Est GFR (Non-Af Amer) BUN/Creatinine Ratio Glucose POC Glucose 133 H Estimat Average Glucose Hemoglobin A1c Calcium Total Bilirubin AST ALT Alkaline Phosphatase Troponin I 0.335 H* 0.216 H* NT-Pro-B Natriuret Pep Total Protein Albumin Globulin Albumin/Globulin Ratio Lyme Disease IgG Ab Lyme Disease IgM Ab 07/28/19 07/28/19 07/28/19 07:27 07:27 07:27 WBC 5.56 RBC 3.81 L Hgb 11.2 L Hct 34.1 L MCV 89.5 MCH 29.4 MCHC 32.8 RDW Std Deviation 45.5 RDW Coeff of Andres 13.9 Plt Count 75 L MPV 8.9 Immature Gran % (Auto) 0.0 Neut % (Auto) 75.2 Lymph % (Auto) 15.6 Bay % (Auto) 6.8 Eos % (Auto) 2.2 Baso % (Auto) 0.2 Immature Gran # (Auto) 0.00 Neut # (Auto) 4.18 Lymph # (Auto) 0.87 L Bay # (Auto) 0.38 Eos # (Auto) 0.12 Baso # (Auto) 0.01 Platelet Estimate Giant Platelets PT INR APTT PTT Ratio VBG pH VBG pCO2 VBG pO2 VBG HCO3 VBG O2 Saturation VBG Base Excess Barometric Pressure Sodium 137 Potassium 4.0 Chloride 102 Carbon Dioxide 31 Anion Gap 5.0 BUN 15 Creatinine 1.01 Est Cr Clr Drug Dosing 96.7 Est GFR ( Amer) 88.2 Est GFR (Non-Af Amer) 76.1 BUN/Creatinine Ratio 14.4 Glucose 108 H POC Glucose Estimat Average Glucose 137 Hemoglobin A1c 6.4 H Calcium 9.0 Total Bilirubin AST ALT Alkaline Phosphatase Troponin I NT-Pro-B Natriuret Pep Total Protein Albumin Globulin Albumin/Globulin Ratio Lyme Disease IgG Ab Lyme Disease IgM Ab 07/28/19 07:30 WBC RBC Hgb Hct MCV MCH MCHC RDW Std Deviation RDW Coeff of Andres Plt Count MPV Immature Gran % (Auto) Neut % (Auto) Lymph % (Auto) Bay % (Auto) Eos % (Auto) Baso % (Auto) Immature Gran # (Auto) Neut # (Auto) Lymph # (Auto) Bay # (Auto) Eos # (Auto) Baso # (Auto) Platelet Estimate Giant Platelets PT INR APTT PTT Ratio VBG pH VBG pCO2 VBG pO2 VBG HCO3 VBG O2 Saturation VBG Base Excess Barometric Pressure Sodium Potassium Chloride Carbon Dioxide Anion Gap BUN Creatinine Est Cr Clr Drug Dosing Est GFR ( Amer) Est GFR (Non-Af Amer) BUN/Creatinine Ratio Glucose POC Glucose 121 H Estimat Average Glucose Hemoglobin A1c Calcium Total Bilirubin AST ALT Alkaline Phosphatase Troponin I NT-Pro-B Natriuret Pep Total Protein Albumin Globulin Albumin/Globulin Ratio Lyme Disease IgG Ab Lyme Disease IgM Ab Medications Administered Active Medications Generic Name Dose Route Start Last Admin Trade Name Freq PRN Reason Stop Dose Admin Acetaminophen 650 mg 07/27/19 18:26 07/28/19 03:47 Tylenol PO 08/26/19 18:25 650 mg Q4H PRN Administration Pain or Fever Albuterol 3 ml 07/27/19 18:26 Duoneb INH 08/26/19 18:25 QID PRN Shortness Of Breath Or Wheezing Albuterol 2 puffs 07/27/19 18:26 Ventolin Hfa INH 08/26/19 18:25 Q4H PRN Shortness Of Breath Or Wheezing Benzonatate 100 mg 07/27/19 18:26 Tessalon Perle PO 08/26/19 18:25 BID PRN cough Calcium Polycarbophil 1,250 mg 07/28/19 11:30 Fibercon PO 08/27/19 11:29 QDL ANILA Carbidopa/Levodopa 1 tab 07/27/19 18:26 07/28/19 09:04 Sinemet 25/100 Mg PO 08/26/19 18:25 1 tab ACHS ANILA Administration Protocol Clopidogrel Bisulfate 75 mg 07/28/19 09:00 07/28/19 09:04 Plavix PO 08/27/19 08:59 75 mg QAM ANILA Administration Al Hydrox/Mg Hydrox/ 0 ml 07/27/19 18:26 Simethicone 72 ml/ Lidocaine PO 08/26/19 18:25 HCl 24 ml/ BARCODE IDENTIFIER Q4H PRN 1 ea Chest Pain Dextrose 25 - 50 ml 07/27/19 18:26 Dextrose 50% IV 08/26/19 18:25 UD PRN Hypoglycemia Protocol Protocol Ezetimibe 10 mg 07/28/19 09:00 07/28/19 09:04 Zetia PO 08/27/19 08:59 10 mg QAM ANILA Administration Finasteride 5 mg 07/27/19 21:00 07/27/19 20:27 Proscar PO 08/26/19 20:59 5 mg HS ANILA Administration Furosemide 40 mg 07/28/19 09:00 07/28/19 09:05 Lasix PO 08/27/19 08:59 40 mg QAM ANILA Administration Glucagon 1 mg 07/27/19 18:26 Glucagen SQ 08/26/19 18:25 UD PRN Hypoglycemia Protocol Protocol Glucose 15 - 30 gm 07/27/19 18:26 Glucose 40% PO 08/26/19 18:25 UD PRN Hypoglycemia Protocol Protocol Glucose 4 - 8 tabs 07/27/19 18:26 Dex4 Glucose PO 08/26/19 18:25 UD PRN Hypoglycemia Protocol Protocol Heparin Sodium (Porcine) 5,000 units 07/27/19 22:00 07/28/19 05:41 Heparin Sodium (Porcine) SQ 08/26/19 21:59 5,000 units Q8 ANILA Administration Heparin Sodium (Porcine) 5 ml 07/28/19 00:49 Heparin Sod 100 Unit/Ml Flush FLUSH 08/27/19 00:59 PRN PRN Flush Insulin Aspart 0 units 07/27/19 18:26 07/28/19 09:05 Novolog Flexpen SC 08/26/19 18:25 8 units ACHS ANILA Administration Insulin Glargine 80 units 07/28/19 09:00 07/28/19 09:06 Lantus SC 08/27/19 08:59 80 units BID ANILA Administration Isosorbide Mononitrate 60 mg 07/28/19 09:00 Imdur Extended Rel PO 08/27/19 08:59 QAM ANILA Lactic Acid 1 gm 07/27/19 18:26 Amlactin EXT 08/26/19 18:25 TID PRN DRY SKIN Latanoprost 1 drops 07/27/19 21:00 07/27/19 20:27 Xalatan Oph OPB 08/26/19 20:59 1 drops HS ANILA Administration Loratadine 10 mg 07/28/19 09:00 07/28/19 09:05 Claritin PO 08/27/19 08:59 10 mg QAM ANILA Administration Losartan Potassium 50 mg 07/28/19 09:00 07/28/19 09:04 Cozaar PO 08/27/19 08:59 50 mg QAM ANILA Administration Magnesium Hydroxide 30 ml 07/27/19 18:26 Milk Of Magnesia PO 08/26/19 18:25 Q12H PRN Constipation Magnesium Oxide 400 mg 07/27/19 21:00 07/27/19 20:26 Mag-Ox PO 08/26/19 20:59 400 mg HS ANILA Administration Metformin HCl 1,000 mg 07/28/19 08:00 07/28/19 09:04 Glucophage PO 08/27/19 07:59 1,000 mg BIDM ANILA Administration Metoprolol Tartrate 50 mg 07/27/19 21:00 07/28/19 09:05 Lopressor PO 08/26/19 20:59 50 mg BID ANILA Administration Miscellaneous 1 ea 07/28/19 00:00 07/28/19 09:16 Order Awaiting Action N/A 08/27/19 00:00 Not Given QS ANILA Miscellaneous 15 - 30 gm 07/27/19 18:26 Carbohydrates For Hypoglycemia PO 08/26/19 18:25 UD PRN Hypoglycemia Treatment Miscellaneous 1 ea 07/28/19 00:00 07/28/19 09:16 Order Awaiting Action N/A 08/27/19 00:00 Not Given QS ANILA Multi-Ingredient Cream 1 appln 07/27/19 18:26 Hydrocerin TOP 08/26/19 18:25 QID PRN DRY SKIN Nitroglycerin 2 inch 07/27/19 15:15 07/28/19 09:08 Nitro-Bid 2% EXT 08/26/19 15:14 2 inch Q6H ANILA Administration Nitroglycerin 0.4 mg 07/27/19 18:26 Nitrostat SL 08/26/19 18:25 PRN PRN Chest Pain Nystatin 1 appln 07/27/19 18:26 Mycostatin EXT 08/26/19 18:25 TID PRN Rash Ondansetron HCl 4 mg 07/27/19 18:26 Zofran Tab PO 08/26/19 18:25 UD PRN Nausea Ondansetron HCl 4 mg 07/27/19 18:26 Zofran IV 08/26/19 18:25 Q6H PRN Nausea Pantoprazole Sodium 40 mg 07/28/19 09:00 07/28/19 09:04 Protonix PO 08/27/19 08:59 40 mg QAM ANILA Administration Polyethylene Glycol 17 gm 07/28/19 09:00 07/28/19 09:04 Miralax Powder Packet PO 08/27/19 08:59 17 gm DAILY@0900 ANILA Administration Pregabalin 50 mg 07/27/19 21:00 07/28/19 09:10 Lyrica PO 08/26/19 20:59 50 mg BID ANILA Administration Ropinirole HCl 6 mg 07/27/19 21:00 07/27/19 20:26 Requip PO 08/26/19 20:59 6 mg HS ANILA Administration Rosuvastatin Calcium 10 mg 07/27/19 21:00 07/27/19 20:25 Crestor PO 08/26/19 20:59 10 mg HS ANILA Administration Sucralfate 1 gm 07/27/19 21:00 07/28/19 09:05 Carafate Tab PO 08/26/19 20:59 1 gm ACHS ANILA Administration Tamsulosin HCl 0.4 mg 07/27/19 21:00 07/27/19 20:25 Flomax PO 08/26/19 20:59 0.4 mg HS ANILA Administration Tizanidine HCl 4 mg 07/27/19 21:00 07/28/19 09:04 Zanaflex PO 08/26/19 20:59 4 mg BID ANILA Administration Triamcinolone Acetonide 1 appln 07/27/19 18:26 Kenalog Orabase MT 08/26/19 18:25 TID PRN DRY MOUTH Verapamil HCl 240 mg 07/27/19 21:00 07/27/19 20:24 Calan Sr PO 08/26/19 20:59 240 mg HS ANILA Administration PG Care Time/CCT Total # of Minutes Spent Total Time Spent with Patient: Total time spent is greater than 50% in coordination of care (as documented) at patient's floor/unit and/or counseling patient: 60 minutes (1) Chest pain Chest pain type: unspecified Qualified Code(s): R07.9 - Chest pain, unspecified
[2019-07-28] MEDS ORDERED: DOBUTamine HCL 12.5 MG/ML 20 ML VIAL IV ONE (11:10)
[2019-07-28] MEDS ORDERED: ATROPINE SULFATE 0.1 MG/ML 10ML SYR IV ONE (11:10)
[2019-07-28] MEDS ORDERED: METOPROLOL TARTRATE 1 MG/ML VIAL IV ONE (11:10)
[2019-07-28] MEDS: CALCIUM POLYCARBOPHIL 625MG TAB PO SCH (14:13)
[2019-07-28] MEDS: LOSARTAN POTASSIUM 50 MG TAB PO SCH ×2 (14:13→21:12)
[2019-07-28 16:19] LABS: Appearance Urine Clear (Clear); Bilirubin Urine Negative (Negative); Blood Urine Negative (Negative); Color Urine Yellow; Glucose Urine UA Negative (Negative); Ketones Urine Negative (Negative); Leukocyte Esterase Urine Negative (Negative); Nitrite Urine Negative (Negative); Protein Urine Negative (Negative); Specific Gravity Urine 1.011 (1.000-1.030); Urobilinogen Urine Negative (Negative); pH Urine 6.5 (4.5-7.5)
--- NOTE | 2019-07-28 19:59 | Hospitalist Progress Note ---
Date of Service July 28, 2019 Assessment & Plan (1) Chest pain: Trop elevated at 0.385--does not have prior hx of elevation, serials pending 07/28 - dobutamine stress test CXR neg for acute EKG WNL Some thought about GERD/gastritis/hiatal hernia causing chest pain, however pt took many medications that should have helped with this during his severe episode this AM and GI cocktail was not helpful in ED today CP is reproducible, which could be seen with a large hiatal hernia causing sx. States he was recommended for fundoplasty Certainly could be a hypoventilation syndrome. Wears HS 3L via NC. Overnight pulse ox showed acceptable sats Lyme negative CTA 06/28 neg for PE, does have new LE swelling--LE US negative for DVT Hx of Agent Coleman exposure could also lead to any miscellany of sx Per cardiology: dobutamine stress echocardiogram today which showed no evidence of myocardial ischemia, and normal baseline LV systolic function and wall motion. Suspect that his elevated troponin level is related to uncontrolled blood pressure in the presence of LVH which is a setup for myocardial O2 supply- demand mismatch. Additionally the patient underwent a Cardiac Catheterization 04/14/2019 which showed only a 40% mid LCx stenosis and a 20% in-stent stenosis in the Proximal LAD stent. Patient also has a component musculoskeletal which is directly reproducible palpation. - cardiology feels he is stable for discharge from a cardiology point of view Restart isosorbide, dc nitro paste (2) Syncope: Ongoing for some time Has seen neurology in the past for seizures though this diagnosis was uncertain Will consult neurology (3) CHF (congestive heart failure): continue losartan, metoprolol, furosemide (4) Hypertension: continue verapamil, metoprolol, losartan (5) Parkinson disease: continue Sinemet (6) BPH (benign prostatic hyperplasia): continue Finasteride and tamsulosin (7) Diabetes mellitus: Controlled Hold home metformin, victoza A1c 6.4 SSI PRN (8) Chronic GERD: continue ppi (9) COPD (chronic obstructive pulmonary disease): continue albuterol (10) History of CVA (cerebrovascular accident): with residual left sided weakness continue clopidegral, rosuvastatin (11) DVT prophylaxis: SCDs, Heparin for DVT proph Subjective Mr. Larose had a syncopal episode while coming back from a test this afternoon. He reports this hasn't happened in some time. He did not seem to feel it coming on. He continues to complain of intermittent substernal chest pain, though not at the time of my assessment. He has trouble laying flat and is frequently nauseas. He is very concerned about going home without a reason for this chest pain as it makes him "feel like I'm dying" and is quite painful. Review of Systems Review of Systems: All systems reviewed & are unremarkable except as noted in HPI & below Physical Exam Physical Exam: General: no distress Eyes: normal inspection, PERLL Respiratory: chest non tender, clear to auscultation, normal breath sounds, no respiratory distress, no accessory muscle use Cardiac: regular rate and rhythm, no rub or gallop, no murmur, no edema, no jvd GI/: active bowel sounds, no abd pain or tenderness, soft, non distended Extremities: normal range of motion, normal strength, non tender Neuro/Psych: alert and oriented x 3, normal mood and affect Skin: normal color, dry Results & Data Vital Signs (Past 12 Hours) Vital Signs Temp Pulse Pulse Resp BP Pulse Ox 07/28/19 19:46 36.8 C 75 22 160/75 H 98 07/28/19 16:11 36.5 C 75 20 164/85 H 97 07/28/19 11:05 36.5 C 73 19 153/82 H 97 07/28/19 08:00 77 07/28/19 07:59 36.6 C 78 20 169/93 H 97 PG Care Time/CCT Total # of Minutes Spent Total Time Spent with Patient: Total time spent is greater than 50% in coordination of care (as documented) at patient's floor/unit and/or counseling patient: (1) Chest pain Chest pain type: unspecified Qualified Code(s): R07.9 - Chest pain, unspecified (2) CHF (congestive heart failure) Heart failure chronicity: acute Heart failure type: unspecified Qualified Code(s): I50.9 - Heart failure, unspecified
[2019-07-28] MEDS: ROSUVASTATIN CALCIUM 10 MG TAB PO SCH (21:12)
[2019-07-28] MEDS: VERAPAMIL HCL 240 MG TABCR PO SCH (21:12)
[2019-07-28] MEDS: TAMSULOSIN HCL 0.4 MG CAP PO SCH (21:12)
[2019-07-28] MEDS: FINASTERIDE 5 MG TAB PO SCH (21:13)
[2019-07-28] MEDS: MAGNESIUM OXIDE 400 MG TAB PO SCH (21:13)
[2019-07-28] MEDS: ROPINIROLE HCL 1 MG TABLET PO SCH (21:14)
[2019-07-28] MEDS: ISOSORBIDE MONO EXTENDED REL 60 MG TABCR PO SCH (21:15)
[2019-07-28] MEDS: LATANOPROST 0.005% OP SOLN 2.5 ML BTL OPB SCH (21:15)
[2019-07-29] MEDS: ACETAMINOPHEN 325 MG TAB PO PRN (02:48)
[2019-07-29] MEDS: HEPARIN SOD 5,000 UNIT/0.5 ML VIAL SQ SCH ×2 (05:57→12:51)
[2019-07-29] MEDS: RESTASIS: ORDER AWAITING ACTION SCH ×3 (08:04→15:27)
[2019-07-29] MEDS: FUROSEMIDE 40 MG TAB PO SCH (08:08)
[2019-07-29] MEDS: TIZANIDINE HCL 4 MG TABLET PO SCH ×2 (08:08→21:09)
[2019-07-29] MEDS: LORATADINE 10 MG TAB PO SCH (08:08)
[2019-07-29] MEDS: EZETIMIBE 10 MG TABLET PO SCH (08:08)
[2019-07-29] MEDS: SUCRALFATE 1 GM TAB PO SCH ×4 (08:08→21:09)
[2019-07-29] MEDS: CARBIDOPA/LEVODOPA 25/100MG TAB PO SCH ×4 (08:08→21:13)
[2019-07-29] MEDS: LOSARTAN POTASSIUM 50 MG TAB PO SCH ×2 (08:08→21:11)
[2019-07-29] MEDS: PANTOprazole 40 MG TAB PO SCH (08:08)
[2019-07-29] MEDS: METOPROLOL TARTRATE 50 MG TAB PO SCH ×2 (08:08→21:12)
[2019-07-29] MEDS: CLOPIDOGREL BISULFATE 75 MG TAB PO SCH (08:08)
[2019-07-29] MEDS: POLYETHYLENE (MIRALAX) 17 GM PACK PO SCH (08:09)
[2019-07-29] MEDS: INSULIN GLARGINE 100 UNIT/ML VIAL SC SCH ×2 (08:09→21:15)
[2019-07-29] MEDS: INSULIN ASPART 100 UNITS/ML 3 ML PEN SC SCH ×4 (08:11→21:14)
[2019-07-29] MEDS: PREGABALIN 50 MG CAP PO SCH ×2 (08:13→21:09)
[2019-07-29] MEDS: CALCIUM POLYCARBOPHIL 625MG TAB PO SCH (12:50)
--- NOTE | 2019-07-29 18:58 | Hospitalist Progress Note ---
Date of Service July 29, 2019 Assessment & Plan (1) Chest pain: Trop elevated at 0.385 and trended down CXR neg for acute EKG WNL Some thought about GERD/gastritis/hiatal hernia causing chest pain, however pt took many medications that should have helped with this during his severe episo de this AM and GI cocktail was not helpful in ED CP is reproducible, which could be seen with a large hiatal hernia causing sx. States he was recommended for fundoplasty Wears HS 3L via NC. Overnight pulse ox showed acceptable sats on 3L Lyme negative CTA 06/28 neg for PE, does have new LE swelling--LE US negative for DVT Hx of Agent Hubbard exposure could also lead to any miscellany of sx Per cardiology: dobutamine stress echocardiogram 07/28 showed no evidence of myocardial ischemia, and normal baseline LV systolic function and wall motion. Suspect that his elevated troponin level is related to uncontrolled blood pressure in the presence of LVH which is a setup for myocardial O2 supply-demand mismatch. Additionally the patient underwent a Cardiac Catheterization 04/14/2019 which showed only a 40% mid LCx stenosis and a 20% in-stent stenosis in the Proximal LAD stent. Patient also has a component musculoskeletal which is directly reproducible palpation. - cardiology feels he is stable for discharge from a cardiology point of view Restarted isosorbide (2) Syncope: Ongoing for some time Has seen neurology in the past for seizures though this diagnosis was uncertain Will consult neurology Discussed with cardiology as well - patient has had past workup with Holter monitor studies without any findings, less suspicious for cardiology etiology. 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 Larose has not had any chest pain today. He is very concerned about what he will do if it recurrs. ROS Constitutional: no chills, aches, sweats or fever Respiratory: no sob,cough, sputum, or wheezing Cardiac: no chest pain, palpitations, edema, orthopnea or lightheadedness GI: no abdominal pain, nausea, vomiting, diarrhea or constipation : no dysuria or hesitancy Extremities: no joint pain or weakness Skin: no rash All other systems reviewed and negative Physical Exam 2 Physical Exam: General: no distress Eyes: normal inspection, PERLL Respiratory: chest non tender, clear to auscultation, normal breath sounds, no respiratory distress, no accessory muscle use Cardiac: regular rate and rhythm, no rub or gallop, no murmur, no edema, no jvd GI/: active bowel sounds, no abd pain or tenderness, soft, non distended Extremities: normal range of motion, normal strength, non tender Neuro/Psych: alert and oriented x 3, normal mood and affect Skin: normal color, dry Results & Data Vital Signs (Past 12 Hours) Vital Signs Temp Pulse Resp BP BP Pulse Ox 07/29/19 15:38 36.9 C 72 20 169/93 H 98 07/29/19 11:30 36.3 C L 75 18 121/79 98 07/29/19 07:44 36.4 C L 71 20 157/91 H 97 PG Care Time/CCT Total # of Minutes Spent Total Time Spent with Patient: Total time spent is greater than 50% in coordination of care (as documented) at patient's floor/unit and/or counseling patient: (1) Chest pain Chest pain type: unspecified Qualified Code(s): R07.9 - Chest pain, unspecified (2) CHF (congestive heart failure) Heart failure chronicity: acute Heart failure type: unspecified Qualified Code(s): I50.9 - Heart failure, unspecified
[2019-07-29] MEDS: VERAPAMIL HCL 240 MG TABCR PO SCH (21:10)
[2019-07-29] MEDS: ROPINIROLE HCL 1 MG TABLET PO SCH (21:10)
[2019-07-29] MEDS: TAMSULOSIN HCL 0.4 MG CAP PO SCH (21:12)
[2019-07-29] MEDS: MAGNESIUM OXIDE 400 MG TAB PO SCH (21:12)
[2019-07-29] MEDS: FINASTERIDE 5 MG TAB PO SCH (21:12)
[2019-07-29] MEDS: ROSUVASTATIN CALCIUM 10 MG TAB PO SCH (21:12)
[2019-07-29] MEDS: LATANOPROST 0.005% OP SOLN 2.5 ML BTL OPB SCH (21:13)
[2019-07-29] MEDS ORDERED: Nursing to Pharmacy Communication ONE (21:45)
--- NOTE | 2019-07-29 23:58 | Neurology Consultation ---
Date of Consultation July 29, 2019 Assessment & Plan (1) Syncope: Richie Larose is a 69 yo man w/ PMH notable for prior stroke with residual left-sided weakness, CHF, DM, COPD, CAD, HTN and Parkinsons disease whom neurology is consulted on for recurrent episodes of syncope. # Syncopal events: he reports a long history of similar sounding events that has had an extensive workup in the past. I do not think that he needs further workup at this time as there has been no change in the characteristics of his events. It is possible that these events are associated to hypoglycemia, though I would be more worried that there is some level of temporary cerebral hypoperfusion given his nausea and sense of lightheadedness (going to pass out). It is possible that he does have convulsive syncope with some episodes explaining the occasional shaking that his and others have noted in the past. Hypoperfusion could be a form of orthostatic hypotension given his PD and the fact that he pretty much never gets out of a chair (only goes from lying in bed to sitting in bed or chair). There are treatments such as droxidopa that can be used for this but I would defer to Dr Bruner to start this in an outpatient setting (the pt also reports difficulty affording medications already so this might be an issue with starting). His events do not clearly sound epileptic in nature; the only way to truly prove that would be to obtain an EEG during one of these events. This would be best achieved in an epilepsy monitoring unit. He can surely have the referral to one of the nearby [facility] if he and his are interested. Present on Admission?: Yes (2) History of CVA (cerebrovascular accident): Present on Admission?: Yes (3) Diabetes: Present on Admission?: Yes History of Present Illness Attending Physician: Kevin Ambrose MD Richie Larose is a 69 yo man w/ PMH notable for prior stroke with residual left- sided weakness, CHF, DM, COPD, CAD, HTN and Parkinsons disease whom neurology is consulted on for recurrent episodes of syncope. Pt follows with Dr Bruner as an outpatient and has a long history of these episodes. Per Dr Bruner's recent note, these episodes were thought to be non- epileptic in nature, hence, he was taken off of keppra. Richie reports that he has had these episodes for several years. They are not dependent on position though occur more frequently when he is sitting (he is wheelchair bound). He feels a "strange sensation" prior to them that includes nausea and dizziness/lightheadedness. He denies any palpitations, sweaty palms, anxiety or sense of doom, or chest pain with episodes. He reports that he will occasionally "shake" when he "passes out". His vision does go blank and he does lose consciousness temporarily (he reports no more than a few minutes). He denies any tongue biting or loss of bowel/bladder. He will wake up slightly confused but reports returning to baseline over the course of 10-15 minutes. His most recent episode occurred after testing on 07/28/19. He does report an association with and similar symptoms to when he has low blood sugar. He reports having multiple such episodes every week. Prior workup has included an essentially normal EEG. CTH done at [facility] reportedly showed no hemorrhage or hypodensity (disc not available for viewing). Workup this admission includes a normal dobutamine stress test, WBC 5.56, Hb 11.2, Plts 75, INR 1.1, no infection on UA, Lyme negative. Allergies Allergy/AdvReac Type Severity Reaction Status Date / Time Cipro Allergy Severe Anaphylaxis Verified 12/07/16 14:38 ciprofloxacin Allergy Severe Anaphylaxis Verified 07/27/19 13:59 metoclopramide Allergy Intermediate FROM DRS Verified 07/27/19 13:59 CHART budesonide [From Symbicort] Allergy Unknown FROM Verified 07/27/19 13:59 OFFICE CHART formoterol [From Symbicort] Allergy Unknown FROM Verified 07/27/19 13:59 OFFICE CHART felodipine AdvReac Mild Cough Verified 07/27/19 13:59 lisinopril AdvReac Mild Cough Verified 07/27/19 13:59 simvastatin AdvReac Mild Leg Verified 07/27/19 13:59 Cramping Home Medications Home Medications Medication Instructions Recorded Confirmed Type Restasis 1 drp OPB Q12H 09/05/18 07/27/19 History latanoprost 1 drp OPB HS 09/05/18 07/27/19 History ondansetron HCl 4 mg PO DIRECTED PRN 09/05/18 07/27/19 History furosemide 40 mg tablet 40 mg PO QAM #30 tab 04/16/19 07/27/19 Rx albuterol sulfate HFA 90 2 puff INHALATION Q4H PRN #1 ea 05/05/19 07/27/19 Rx mcg/actuation aerosol inhaler carbidopa 25 mg-levodopa 100 mg 1 tab PO QID #120 tab 05/05/19 07/27/19 Rx tablet finasteride 5 mg tablet 5 mg PO HS #30 tab 05/05/19 07/27/19 Rx insulin aspart U- 100 100 unit/mL See Rx Instructions SUBCUT 05/05/19 07/27/19 Rx subcutaneous solution DIRECTED #10 ml ipratropium-albuterol 0.5 mg-3 3 ml INHALATION QID PRN #90 ml 05/05/19 07/27/19 Rx mg(2.5 mg base)/3 mL nebulization soln metformin 1,000 mg tablet 1,000 mg PO BID #60 tab 05/05/19 07/27/19 Rx metoprolol tartrate 50 mg tablet 50 mg PO BID #60 tab 05/05/19 07/27/19 Rx verapamil ER (SR) 240 mg 240 mg PO HS #30 tab 05/05/19 07/27/19 Rx tablet,extended release Ensure Clear 1 ea PO BID 06/28/19 07/27/19 History Glucerna 1 ea PO BID 06/28/19 07/27/19 History Toujeo SoloStar U-300 Insulin 80 units SUBCUT BID 06/28/19 07/27/19 History calcium polycarbophil 1,250 mg PO QDL 06/28/19 07/27/19 History olopatadine [Patanol] 1 drp OPB Q8H PRN 06/28/19 07/27/19 History tizanidine 4 mg PO BID #0 tab 06/29/19 07/27/19 Rx sucralfate 1 gram tablet 1 gm PO QID tab 07/08/19 07/27/19 History benzonatate 100 mg capsule 100 mg PO BID PRN #30 cap 07/09/19 07/27/19 Rx pregabalin 50 mg capsule 50 mg PO BID #180 cap 07/09/19 07/27/19 Rx Oxygen Home #1 ea 07/11/19 07/27/19 History magnesium 400 mg (as magnesium 420 mg PO HS cap 07/11/19 07/27/19 History oxide) capsule nitroglycerin 0.4 mg sublingual 0.3 mg SL Q5M PRN tab 07/11/19 07/27/19 History tablet polyethylene glycol 3350 17 17 gm PO DAILY@0900 07/11/19 07/27/19 History gram/dose oral powder clopidogrel [Plavix] 75 mg PO QAM 07/17/19 07/27/19 History ezetimibe [Zetia] 10 mg PO QAM 07/17/19 07/27/19 History isosorbide mononitrate 60 mg PO QAM 07/17/19 07/27/19 History liraglutide 1.8 mg SUBCUT QDD 07/17/19 07/27/19 History loratadine [Claritin] 10 mg PO QAM 07/17/19 07/27/19 History losartan 50 mg PO QAM 07/17/19 07/27/19 History pantoprazole 40 mg PO QAM 07/17/19 07/27/19 History ropinirole 6 mg PO HS 07/17/19 07/27/19 History rosuvastatin [Crestor] 10 mg PO HS 07/17/19 07/27/19 History tamsulosin 0.4 mg PO HS 07/17/19 07/27/19 History ammonium lactate 1 applic TOPICAL TID PRN 07/27/19 07/27/19 History lanolin wowsmid-ht-e.pet-ceres 1 applic TOPICAL QID PRN 07/27/19 07/27/19 History [Eucerin] nystatin 1 applic TOPICAL TID PRN 07/27/19 07/27/19 History triamcinolone acetonide 1 applic DENTAL TID PRN 07/27/19 07/27/19 History Patient History Medical History Anemia BPH (benign prostatic hyperplasia) Basal cell carcinoma of right upper arm removed in office COPD (chronic obstructive pulmonary disease) CVA (cerebral vascular accident) 04/2017--left side weakness---follows with Dr. Bruner Chronic back pain Diabetes mellitus, type 2 Diverticular disease Fatty liver Glaucoma HTN (hypertension) History of DVT of lower extremity x2--left leg--after abominal sx History of anesthesia reaction woke up during abdominoplasty [place] [facility] [place] History of colon polyps History of pulmonary embolism 2006--after abdominal sx Kidney stones Myocardial Infarction 2006--heart cath--follows with Dr. English Neuropathy associated with endocrine disorder On anticoagulant therapy plavix daily On home oxygen therapy 3L N/C at all times Osteoarthritis Parkinson disease follow with Dr. Bruner Pulmonary embolism Seizure ? pt not sure if he really did have any in 2013--was on medication but no longer is on meds--follows with Dr. Bruner Wheelchair bound Surgical History H/O heart artery stent x1--2006 @ [facility] History of abdominoplasty History of bowel resection 2006 18 inches removed @ [facility] [address] d/t diverticulitis History of colonoscopy History of endoscopic sinus surgery History of esophagogastroduodenoscopy (EGD) History of vascular access device Aport Right side History of wisdom tooth extraction S/P cardiac cath x5--2006 @ [place]/ 2010 @ [facility] [place]/ last was 04/14/19 left and coronary angiography [place] [facility] [place] Status post glaucoma surgery bilt eyes Family History Mother Coronary heart disease Family history of reaction to anesthesia wakes up during surgery Grandfather (Paternal) Myocardial infarction Grandmother (Paternal) Myocardial infarction Father Liver cancer Pancreatic cancer Colorectal cancer Sister Family history of reaction to anesthesia nausea/vomiting Social History Preferred Language: Swedish Communication Ability: Effective Visual Impairment: Limited Hearing Ability: Use of Hearing Aid [employer] Required: No Beliefs That Will Affect Care: None marital status: Current Living Situation: Spouse Current Living Situation Comment: Lives at home with - wheelchair accessible current occupational status: retired Feels Safe at Home: No Is there a partner from a previous relationship who is making you feel unsafe now?: No Smoking Status: Former smoker Tobacco Type: cigarettes ; Age Started Using Tobacco: 19 ; Age Quit Using Tobacco: 23 ; Second Hand Exposure: No ; Hx Alcohol Use: No Hx Substance Use: No Childhood Exposure to Second-Hand Smoke: No Other Diet Comment: Glucerna (2), chicken noodle soup caffeine: Yes Dental Care, Regularly: Yes Physical Activity Frequency: Does not Exercise Seatbelt Use: always Sunscreen Use: No Do you think of yourself as: straight/heterosexual Review of Systems Review of Systems: All systems reviewed & are unremarkable except as noted in HPI & below Physical Exam Physical Exam: General Exam: GEN: NAD, sitting in chair. HEENT: No conjunctival injection, no rhinorrhea CV: RRR, trace peripheral edema PULM: Nonlabored respirations on room air. Neuro Exam: MS: Awake and Alert. Oriented to person, place, not age, month or year. Speech fluent and appropriate without dysarthria or paraphasic errors. Language intact including naming, comprehension, repetition. Cognition and memory impaired. Inattentive and tangential at times. No neglect. CN: ?R superior quadrantopia. No extinction to double simultaneous stimuli. Unable to visualize fundi well. PERRLA OU. EOMI without nystagmus. Facial sensation intact to LT. Facial muscles full and symmetric. Hearing intact to conversation. Uvula midline with symmetric palatal elevation. SCMs and shoulder shrug normal. Tongue midline. MOTOR: Normal bulk and tone. No clear cogwheeling. Right hand rest tremor. No pronator drift. RUE strength 5/5 at deltoids, biceps, triceps, wrist flexors and extensors, and finger flexors. RLE strength 5/5 at iliopsoas, hamstrings, quadriceps, tibialis anterior, and gastrocnemius. LUE/LLE minimally antigravity with almost immediate drift to chair. Able to wiggle toes on the left and 5-/5 hand grasp on the left. REFLEXES: 2+ at biceps, triceps, brachioradialis, patella and Achilles bilaterally. Flexor plantar responses bilaterally. SENSORY: Intact to LT, vibration and pinprick throughout. No extinction to double simultaneous stimuli. COORDINATION: No dysmetria or ataxia on [id number]. Decreased amplitude of Yasmine on the R. GAIT: wheelchair bound Results & Data Vital Signs (Past 12 Hours) Vital Signs Temp Pulse Resp BP Pulse Ox 07/29/19 23:03 36.5 C 68 16 116/64 95 07/29/19 19:56 36.5 C 71 20 170/75 H 96 07/29/19 15:38 36.9 C 72 20 169/93 H 98 Laboratory Results Laboratory Results - last 24 hr 07/27/19 07/27/19 07/27/19 13:59 13:59 13:59 WBC 4.62 L RBC 3.63 L Hgb 10.6 L Hct 32.8 L MCV 90.4 MCH 29.2 MCHC 32.3 RDW Std Deviation 45.4 RDW Coeff of Andres 13.8 Plt Count 79 L MPV 9.7 Immature Gran % (Auto) 0.2 Neut % (Auto) 75.4 Lymph % (Auto) 16.9 [place] % (Auto) 5.6 Eos % (Auto) 1.7 Baso % (Auto) 0.2 Immature Gran # (Auto) 0.01 Neut # (Auto) 3.48 Lymph # (Auto) 0.78 L [place] # (Auto) 0.26 Eos # (Auto) 0.08 Baso # (Auto) 0.01 Platelet Estimate Decreased L Giant Platelets 1+ PT 10.9 INR 1.1 APTT 32.1 H PTT Ratio 1.2 VBG pH VBG pCO2 VBG pO2 VBG HCO3 VBG O2 Saturation VBG Base Excess Barometric Pressure Sodium 141 Potassium 3.8 Chloride 104 Carbon Dioxide 31 Anion Gap 6.0 BUN 15 Creatinine 1.02 Est Cr Clr Drug Dosing Not Reportable Est GFR ( Amer) 87.1 Est GFR (Non-Af Amer) 75.2 BUN/Creatinine Ratio 14.3 Glucose 117 H POC Glucose Estimat Average Glucose Hemoglobin A1c Calcium 8.4 L Total Bilirubin 0.4 AST 23 ALT 10 L Alkaline Phosphatase 107 Troponin I 0.385 H* NT-Pro-B Natriuret Pep 141 Total Protein 7.1 Albumin 3.1 L Globulin 4.0 Albumin/Globulin Ratio 0.8 L Lyme Disease IgG Ab Lyme Disease IgM Ab 07/27/19 07/27/19 07/27/19 16:47 18:10 18:49 WBC RBC Hgb Hct MCV MCH MCHC RDW Std Deviation RDW Coeff of Andres Plt Count MPV Immature Gran % (Auto) Neut % (Auto) Lymph % (Auto) [place] % (Auto) Eos % (Auto) Baso % (Auto) Immature Gran # (Auto) Neut # (Auto) Lymph # (Auto) [place] # (Auto) Eos # (Auto) Baso # (Auto) Platelet Estimate Giant Platelets PT INR APTT PTT Ratio VBG pH 7.44 H VBG pCO2 49 VBG pO2 40 VBG HCO3 33 VBG O2 Saturation 76.2 VBG Base Excess 7.2 Barometric Pressure 731.3 Sodium Potassium Chloride Carbon Dioxide Anion Gap BUN Creatinine Est Cr Clr Drug Dosing Est GFR ( Amer) Est GFR (Non-Af Amer) BUN/Creatinine Ratio Glucose POC Glucose 76 Estimat Average Glucose Hemoglobin A1c Calcium Total Bilirubin AST ALT Alkaline Phosphatase Troponin I NT-Pro-B Natriuret Pep Total Protein Albumin Globulin Albumin/Globulin Ratio Lyme Disease IgG Ab Negative Lyme Disease IgM Ab Negative 07/27/19 07/27/19 07/28/19 18:49 20:35 00:55 WBC RBC Hgb Hct MCV MCH MCHC RDW Std Deviation RDW Coeff of Andres Plt Count MPV Immature Gran % (Auto) Neut % (Auto) Lymph % (Auto) [place] % (Auto) Eos % (Auto) Baso % (Auto) Immature Gran # (Auto) Neut # (Auto) Lymph # (Auto) [place] # (Auto) Eos # (Auto) Baso # (Auto) Platelet Estimate Giant Platelets PT INR APTT PTT Ratio VBG pH VBG pCO2 VBG pO2 VBG HCO3 VBG O2 Saturation VBG Base Excess Barometric Pressure Sodium Potassium Chloride Carbon Dioxide Anion Gap BUN Creatinine Est Cr Clr Drug Dosing Est GFR ( Amer) Est GFR (Non-Af Amer) BUN/Creatinine Ratio Glucose POC Glucose 133 H Estimat Average Glucose Hemoglobin A1c Calcium Total Bilirubin AST ALT Alkaline Phosphatase Troponin I 0.335 H* 0.216 H* NT-Pro-B Natriuret Pep Total Protein Albumin Globulin Albumin/Globulin Ratio Lyme Disease IgG Ab Lyme Disease IgM Ab 07/28/19 07/28/19 07/28/19 07:27 07:27 07:27 WBC 5.56 RBC 3.81 L Hgb 11.2 L Hct 34.1 L MCV 89.5 MCH 29.4 MCHC 32.8 RDW Std Deviation 45.5 RDW Coeff of Andres 13.9 Plt Count 75 L MPV 8.9 Immature Gran % (Auto) 0.0 Neut % (Auto) 75.2 Lymph % (Auto) 15.6 [place] % (Auto) 6.8 Eos % (Auto) 2.2 Baso % (Auto) 0.2 Immature Gran # (Auto) 0.00 Neut # (Auto) 4.18 Lymph # (Auto) 0.87 L [place] # (Auto) 0.38 Eos # (Auto) 0.12 Baso # (Auto) 0.01 Platelet Estimate Giant Platelets PT INR APTT PTT Ratio VBG pH VBG pCO2 VBG pO2 VBG HCO3 VBG O2 Saturation VBG Base Excess Barometric Pressure Sodium 137 Potassium 4.0 Chloride 102 Carbon Dioxide 31 Anion Gap 5.0 BUN 15 Creatinine 1.01 Est Cr Clr Drug Dosing 96.7 Est GFR ( Amer) 88.2 Est GFR (Non-Af Amer) 76.1 BUN/Creatinine Ratio 14.4 Glucose 108 H POC Glucose Estimat Average Glucose 137 Hemoglobin A1c 6.4 H Calcium 9.0 Total Bilirubin AST ALT Alkaline Phosphatase Troponin I NT-Pro-B Natriuret Pep Total Protein Albumin Globulin Albumin/Globulin Ratio Lyme Disease IgG Ab Lyme Disease IgM Ab 07/28/19 07:30 WBC RBC Hgb Hct MCV MCH MCHC RDW Std Deviation RDW Coeff of Andres Plt Count MPV Immature Gran % (Auto) Neut % (Auto) Lymph % (Auto) [place] % (Auto) Eos % (Auto) Baso % (Auto) Immature Gran # (Auto) Neut # (Auto) Lymph # (Auto) [place] # (Auto) Eos # (Auto) Baso # (Auto) Platelet Estimate Giant Platelets PT INR APTT PTT Ratio VBG pH VBG pCO2 VBG pO2 VBG HCO3 VBG O2 Saturation VBG Base Excess Barometric Pressure Sodium Potassium Chloride Carbon Dioxide Anion Gap BUN Creatinine Est Cr Clr Drug Dosing Est GFR ( Amer) Est GFR (Non-Af Amer) BUN/Creatinine Ratio Glucose POC Glucose 121 H Estimat Average Glucose Hemoglobin A1c Calcium Total Bilirubin AST ALT Alkaline Phosphatase Troponin I NT-Pro-B Natriuret Pep Total Protein Albumin Globulin Albumin/Globulin Ratio Lyme Disease IgG Ab Lyme Disease IgM Ab PG Care Time/CCT Total # of Minutes Spent Total Time Spent with Patient: Total time spent is greater than 50% in coordination of care (as documented) at patient's floor/unit and/or counseling patient:
[2019-07-30] MEDS: RESTASIS: ORDER AWAITING ACTION SCH ×2 (00:01→08:11)
[2019-07-30] MEDS: SUCRALFATE 1 GM TAB PO SCH ×2 (08:09→11:56)
[2019-07-30] MEDS: CARBIDOPA/LEVODOPA 25/100MG TAB PO SCH ×2 (08:09→11:56)
[2019-07-30] MEDS: INSULIN ASPART 100 UNITS/ML 3 ML PEN SC SCH ×2 (08:17→11:57)
[2019-07-30] MEDS: METOPROLOL TARTRATE 50 MG TAB PO SCH (08:21)
[2019-07-30] MEDS: LORATADINE 10 MG TAB PO SCH (08:22)
[2019-07-30] MEDS: EZETIMIBE 10 MG TABLET PO SCH (08:22)
[2019-07-30] MEDS: TIZANIDINE HCL 4 MG TABLET PO SCH (08:22)
[2019-07-30] MEDS: ISOSORBIDE MONO EXTENDED REL 60 MG TABCR PO SCH (08:22)
[2019-07-30] MEDS: CLOPIDOGREL BISULFATE 75 MG TAB PO SCH (08:22)
[2019-07-30] MEDS: LOSARTAN POTASSIUM 50 MG TAB PO SCH (08:23)
[2019-07-30] MEDS: PANTOprazole 40 MG TAB PO SCH (08:23)
[2019-07-30] MEDS: FUROSEMIDE 40 MG TAB PO SCH (08:23)
[2019-07-30] MEDS: POLYETHYLENE (MIRALAX) 17 GM PACK PO SCH (08:24)
[2019-07-30] MEDS: INSULIN GLARGINE 100 UNIT/ML VIAL SC SCH (08:25)
[2019-07-30] MEDS: PREGABALIN 50 MG CAP PO SCH (08:31)
--- NOTE | 2019-07-30 10:07 | Discharge Summary ---
Date of Service July 30, 2019 Admission HPI Per Admitting Provider 69 y/o M c/o chest pain. Pt has been having chest pain for the last several months. He states it started when he was using a chainsaw and has continued to worsen. It is substernal and moves into his L chest. He had a dobutamine stress test that was + this summer and this lead to a cath on 06/03. It was noted for a 20% and a 40% blockage, but no need for stents. Pt continued to have ongoing pain. It was thought that it was possibly GI in nature, so pt had an EGD on 07/22 that showed gastritis and a large hiatal hernia. It was thought that this was the cause of his chest pain and he was given several medications to address this. Despite compliance, pt has continued to have chest pain that is worsening. He has been taking lasix for about a year for LE swelling and despite ongoing use, he has had increased LE swelling and pain the last few days where prior the lasix had kept this under control. Last night, pt was watching an action movie when around 11p he started to have the most severe chest pain he has had. He states he was "really into the movie, it was like when I was in [place] almost." He took 1/2 bottle of mylanta, a 1/2 bottle of pepto, 2 glasses of baking soda without any help. He then took nitro x6, but his pain continued. He was SOB and sweaty and nauseated. This lasted until around 4a, when it did finally lessen. Pt's states that he had an episode of unresponsiveness around 1130a today. She states that this happens periodically. He will just start to stare while someone is talking to him and gradually slump over. He is not responsive for about 5-10 minutes. When he wakes up, he is confused. It was after this that they came to the ED. Pt has had decreased PO intake. He is hesitant to eat much due to recent GI dx. Pt wears HS O2 for COPD via NC. He had a sleep study several years ago that was WNL. He states he does not sleep well and wakes often. states he does not snore often, but that he is frequently restless. There is some sort of hx of seizures and pt was on medication at one time, however this made him confused and the dx was not certain, so this has been d/c'd for many years. Pt has a hx of SC with stents in 2006. He states that prior to the stents being placed, he had a "negative cath" initially. With ongoing sx another cath was done and this revealed the need for stenting. Pt was in [place] and has hx of Agent [place] exposure. At present, pt still has chest pain. When I push on his chest, he feels this makes the pain worse. He was given nitro and GI cocktail in the ED without change in pain. Pt denies fever, abd pain, v/c/d. Principal Diagnosis Chest pain Discharge Exam Constitutional WD/WN, vitals as above Respiratory normal respiratory effort, lungs clear to auscultation Cardiovascular RRR, no murmur, no edema Gastrointestinal (Abdomen) Inspection/Auscultation: abdomen normal to inspection and normal bowel sounds; abdomen not distended Percussion/Palpation: abdomen soft; abdomen nontender Musculoskeletal Extremities: extremities normal to inspection and + abnormal strength (weakness lower extremities - chronic ) Skin no rashes, warm and dry Neurologic moves all extremities and awake Psychiatric A+Ox3, euthymic affect Discharge Data Allergies Allergy/AdvReac Type Severity Reaction Status Date / Time Cipro Allergy Severe Anaphylaxis Verified 12/07/16 14:38 ciprofloxacin Allergy Severe Anaphylaxis Verified 07/27/19 13:59 metoclopramide Allergy Intermediate FROM DRS Verified 07/27/19 13:59 CHART budesonide [From Symbicort] Allergy Unknown FROM Verified 07/27/19 13:59 OFFICE CHART formoterol [From Symbicort] Allergy Unknown FROM Verified 07/27/19 13:59 OFFICE CHART felodipine AdvReac Mild Cough Verified 07/27/19 13:59 lisinopril AdvReac Mild Cough Verified 07/27/19 13:59 simvastatin AdvReac Mild Leg Verified 07/27/19 13:59 Cramping Consultations 07/27/19 15:19 ED Decision to Admit Stat 07/27/19 18:26 Consult Cardiology Routine 07/28/19 20:04 Consult Neurology Routine Ordered Studies 07/27/19 18:26 US venous doppler [facility] Urgent Hospital Course (1) Chest pain: Trop elevated at 0.385 and trended down CXR neg for acute EKG WNL Some thought about GERD/gastritis/hiatal hernia causing chest pain, however pt took many medications that should have helped with this during his severe episode this AM and GI cocktail was not helpful in ED CP is reproducible, which could be seen with a large hiatal hernia causing sx. States he was recommended for fundoplasty Wears HS 3L via NC. Overnight pulse ox showed acceptable sats on 3L - lowest value was 91% Lyme negative CTA 06/28 neg for PE, does have new LE swelling--LE US negative for DVT Hx of Agent [place] exposure could also lead to any miscellany of sx Per cardiology: dobutamine stress echocardiogram 07/28 showed no evidence of myocardial ischemia, and normal baseline LV systolic function and wall motion. Suspect that his elevated troponin level is related to uncontrolled blood pressure in the presence of LVH which is a setup for myocardial O2 supply-demand mismatch. Additionally the patient underwent a Cardiac Catheterization 04/14/2019 which showed only a 40% mid LCx stenosis and a 20% in-stent stenosis in the Proximal LAD stent. Patient also has a component musculoskeletal which is directly reproducible palpation. - cardiology feels he is stable for discharge Restarted isosorbide (2) Syncope: Ongoing for some time with significant workup thus far. He did have a reported episode during transport back from his stress test while in his wheelchair. Has seen neurology in the past for seizures though this diagnosis was uncertain - determined seizures unlikely Consulted neuro - no further workup for now Did offer to refer for ambulatory EEG but patient declines Discussed with cardiology as well - patient has had past workup with Holter monitor studies without any findings, less suspicious for cardiology etiology. Mr. Larose did have positive orthostatics with supine 126/71 and standing 103/67. Per Dr. Crenshaw's note, Droxidopa could be considered for PD related orthostasis but she defers to Dr. Bruner in follow up to decide if this medication should be added (3) CHF (congestive heart failure): continue losartan, metoprolol, furosemide Euvolemic - negative Is&Os > 3L (4) Hypertension: Patient with elevated blood pressures on admission 200s/100 - continue verapamil, metoprolol, losartan increased per cardiology Likely contributed to elevated troponin (5) Parkinson disease: continue Sinemet (6) BPH (benign prostatic hyperplasia): continue Finasteride and tamsulosin (7) Diabetes mellitus: Controlled Hold home metformin, victoza - resume at discharge A1c 6.4 SSI PRN Neurology did consider hypoglycemia as a possible source of syncope. No episodes of hypoglycemia while inpatient (8) Chronic GERD: continue ppi - will increase to bid for home Continue sucralfate (9) COPD (chronic obstructive pulmonary disease): continue albuterol (10) History of CVA (cerebrovascular accident): with residual left sided weakness continue clopidegral, rosuvastatin (11) DVT prophylaxis: SCDs, Heparin for DVT proph Total Time Total Time Spent Total Time Spent (In Minutes): greater than 30 minutes Discharge Plan Discharge Items Patient Disposition: Home - Self-Care Reason For Visit: CHEST PAIN Discharge Diagnosis: Chest pain Activity: Resume your previous activity Non-emergency contact: Primary Care Provider Call non-emergency contact if: you have any medication questions, your symptoms worsen and your pain is not controlled Follow-up/Referrals: Kendell Johnson PA-C [Physician Orthodontist Assistant] - 08/05/19 9:30 am (Please, follow up at [facility] Cardiology Office in [place] with Kendell Johnson PA-C on SundayAugust 05 at 9:30 am. *If you need to change this appointment, call the office at [phone].) Sukhdev Bruner MD [Physician] - (Please, follow up at [facility] Neurology Office. *A nurse from this office will call you with the appointment information. If you have any questions, call the office at [phone].) Abner Dunn MD [Primary Care Provider] - 08/06/19 2:30 pm (Please, follow up with Dr. Dunn on SundayAugust 06 at 2:30 pm. *If you need to change this appointment, call the office at [phone].) Diet: Carb Consistent or DM2 and Heart Healthy Addtl Attending Provider Instructions: You were admitted for chest pain. At this time, cardiology does not feel you need further work up. Your stress test was normal. You did have an elevation in a cardiac marker called troponin which can indicate injury to the heart. This is likely due to the very high blood pressures you had on admission. Your blood pressure medications have been adjusted for home with an increase in your losartan to twice per day. Please check your blood pressure at home once daily after you have been sitting calmly for at least 5 minutes and take a log to your next doctor's appointment. You should see your primary care provider and wire setter within the next week or two. Concerning your fainting or inattention spell, neurology and cardiology do no feel you need further work up at this time but you could consider outpatient EEG or cardiac monitoring. Your blood pressure does come down a bit between laying and sitting/standing. You should change positions very slowly, allowing time for your blood pressure to readjust. Wear compression stockings like CELSO hose as well. Again, check your blood pressure daily at home and keep a log. Call your doctor if it is above 180/90 or below 100/60 or if you are becoming dizzy or lightheaded. Check your blood pressure if you have another episode. You should also check your blood sugars regularly. Until you follow up with Dr. Dunn, please check your blood sugars before meals and at bedtime. If they are running low at times this could contribute to feeling faint as well. You did not have any episodes of hypoglycemia here at the hospital. For your hiatal hernia/reflux I have increased your pantoprazole to twice per day. Pending Studies at Discharge: No Stand-Alone Forms: My [facility] Medications and DC Order Prescriptions: New losartan 50 mg Tablet 50 mg PO BID Qty: 60 RF: 0 Continued benzonatate [Tessalon Perles] 100 mg capsule 100 mg PO BID PRN (Reason: cough) Qty: 30 RF: 0 pregabalin [Lyrica] 50 mg capsule 50 mg PO BID Qty: 180 RF: 1 furosemide 40 mg tablet 40 mg PO QAM Qty: 30 RF: 5 albuterol sulfate [Proventil HFA] 90 mcg/actuation HFA aerosol inhaler 2 puff Inhalation Q4H PRN (Reason: Shortness Of Breath Or Wheezing) Qty: 1 RF: 5 carbidopa-levodopa 25-100 mg tablet 1 tab PO QID Qty: 120 RF: 5 finasteride 5 mg tablet 5 mg PO HS Qty: 30 RF: 5 Novolog U-100 Insulin aspart 100 unit/mL solution See Rx Instructions SUBCUT DIRECTED Qty: 10 RF: 5 ipratropium-albuterol 0.5 mg-3 mg(2.5 mg base)/3 mL solution for nebulization 3 ml INHALATION QID PRN (Reason: Shortness Of Breath Or Wheezing) Qty: 90 RF: 5 metformin 1,000 mg tablet 1,000 mg PO BID Qty: 60 RF: 5 metoprolol tartrate 50 mg tablet 50 mg PO BID Qty: 60 RF: 5 verapamil 240 mg tablet extended release 240 mg PO HS Qty: 30 RF: 5 sucralfate [Carafate] 1 gram tablet 1 gm PO QID RF: 0 magnesium oxide 400 mg magnesium capsule 420 mg PO HS RF: 0 nitroglycerin 0.4 mg tablet, sublingual 0.3 mg SL Q5M PRN (Reason: chest pain x3 doses) RF: 0 polyethylene glycol 3350 17 gram/dose powder 17 gm PO DAILY@0900 RF: 0 Oxygen Home Liters Per Minute .ROUTE .MEDSUPPLY Qty: 1 RF: 0 latanoprost 0.005 % Drops 1 drp OPB HS RF: 0 ondansetron HCl 4 mg Tablet 4 mg PO DIRECTED PRN (Reason: Nausea) RF: 0 Restasis 0.05 % Dropperette 1 drp OPB Q12H RF: 0 olopatadine [Patanol] 0.1 % Drops 1 drp OPB Q8H PRN (Reason: itchy eyes) RF: 0 Toujehannah SoloStar U-300 Insulin 300 unit/mL (1.5 mL) insulin pen 80 units SUBCUT BID RF: 0 calcium polycarbophil 625 mg Tablet 1,250 mg PO QDL RF: 0 Glucerna Liquid 1 ea PO BID RF: 0 Ensure Clear Liquid 1 ea PO BID RF: 0 tizanidine 4 mg Tablet 4 mg PO BID Qty: 0 RF: 0 clopidogrel [Plavix] 75 mg tablet 75 mg PO QAM RF: 0 isosorbide mononitrate 60 mg tablet extended release 24 hr 60 mg PO QAM RF: 0 tamsulosin 0.4 mg capsule 0.4 mg PO HS RF: 0 loratadine [Claritin] 10 mg tablet 10 mg PO QAM RF: 0 ezetimibe [Zetia] 10 mg tablet 10 mg PO QAM RF: 0 rosuvastatin [Crestor] 10 mg tablet 10 mg PO HS RF: 0 ropinirole 6 mg tablet extended release 24 hr 6 mg PO HS RF: 0 liraglutide 0.6 mg/0.1 mL (18 mg/3 mL) pen injector 1.8 mg SUBCUT QDD RF: 0 triamcinolone acetonide 0.1 % Paste 1 applic DENTAL TID PRN (Reason: Dry Mouth) RF: 0 ammonium lactate 12 % cream 1 applic topical TID PRN (Reason: Skin Irritation) RF: 0 nystatin 100,000 unit/gram Powder 1 applic TOPICAL TID PRN (Reason: Skin Irritation) RF: 0 Eucerin Cream 1 applic TOPICAL QID PRN (Reason: Skin Irritation) RF: 0 Changed pantoprazole 40 mg tablet,delayed release (DR/EC) 40 mg PO BID Qty: 0 RF: 0 Discontinued losartan 50 mg tablet 50 mg PO QAM RF: 0 Discharge Orders: Discharge Order (Routine); Ordered 07/30/19 Ordered By: Angle Weiner/Other Patient Handouts: GERD Lifestyle Changes Admission Data Admit Date/Time: 07/27/19 16:32 Attending Provider: Kevin Ambrose Admit Provider: Nisha Bettencourt Primary Care Provider: Abner Dunn Other Providers: Lorenzo English Jr ; Kevin Ambrose ; Sukhdev Bruner
[2019-07-30] MEDS: CALCIUM POLYCARBOPHIL 625MG TAB PO SCH (11:57)
--- NOTE | 2019-08-01 12:40 | Coding Query ---
CONGESTIVE HEART FAILURE To Promote full compliance with coding requirements relating to patient care, physician participation is requested in all cases of sales engagement executive uncertainty. Please assist us with the following questions. A diagnosis of Congestive Heart Failure is documented in the patient's medical record. To accurately code this diagnosis and to compare patient severity, we ask that you specify the type of heart failure by placing an X within the parenthesis (x). SYSTOLIC HEART FAILURE ( ) Acute ( ) Chronic ( ) Acute on Chronic ( ) Rheumatic ( ) Unknown DIASTOLIC HEART FAILURE ( ) Acute ( ) Chronic ( ) Acute on Chronic ( ) Rheumatic ( ) Unknown COMBINED SYSTOLIC AND DIASTOLIC HEART FAILURE ( ) Acute ( ) Chronic ( ) Acute on Chronic ( ) Rheumatic ( ) Unknown Was the CHF Present On Admission? Please check the appropriate box: ( ) Present on Admission ( ) Not Present On Admission ( ) Clinically undetermined Thank you Meena GOLDEN
== END 2019-07-30 12:35 | disposition home or self-care (01) | DRG 313 ==
LOC: ED 12:58 → 2S 16:32 → SUATTDRO 16:32 → 2S 17:43